=== PATIENT | male | born 1945 | race Caucasian/White ===

== ENCOUNTER → 2019-08-25 08:16 | Outpatient (BNVA) | payer MEDICARE, BC, SELFPAY | PROVIDERS: Family Provider Nurse Practitioner Family; PCP Nurse Practitioner Family; Visit Provider Nurse Practitioner Family | DX: I48.91 Unspecified atrial fibrillation (principal); M54.6 Pain in thoracic spine; R42 Dizziness and giddiness | CPT/HCPCS: 80053; 80162; 81001; 81003; 82607; 82746; 84425; 85025 ==

== ENCOUNTER → 2019-11-06 09:17 | Outpatient (BNVA) | payer MEDICARE, BC, SELFPAY | PROVIDERS: Family Provider Nurse Practitioner Family; PCP Nurse Practitioner Family; Visit Provider Nurse Practitioner Family | DX: R06.02 Shortness of breath (principal) | CPT/HCPCS: 71046 ==

== ENCOUNTER 2019-11-06 11:36 | Inpatient (IN) | payer MEDICARE, BC, SELFPAY ==
[2019-11-06] VITALS (40 sets, daily range): BP systolic 97–134; BP diastolic 52–101; PULSE 101–174; RESP 17–40; TEMP 36.7; O2SAT 88–96; BMI 28.7
--- NOTE | 2019-11-06 11:43 | XR_ITS ---
WS: [id number] XR chest 1V portable [id number] REASON FOR EXAM: cough/congestion FINDINGS: The heart and mediastinal interfaces normal. The lung lopez are well aerated no pneumonia pleural effusion pulmonary edema. No pneumothorax. The orbits and hilum are normal. No osseous abnormalities. There is elevation of the right hemidiaphragm. XR/XR chest 1V portable [id number] IMPRESSION: Eventration of the right hemidiaphragm. Negative chest
--- NOTE | 2019-11-06 11:44 | ECG_ITS ---
Measurements Intervals [place] Rate: 143 P: LA: 0 QRS: -42 QRSD: 129 T: 126 QT: 292 QTc: 451 ATRIAL FLUTTER/TACHYCARDIA WITH RAPID VENTRICULAR RESPONSE LEFT AXIS DEVIATION [QRS AXIS < -30] POSSIBLE RIGHT VENTRICULAR CONDUCTION DELAY [RSR (QR) IN V1/V2] SEPTAL MYOCARDIAL INFARCTION , PROBABLY OLD [40+ ms Q WAVE IN V1/V2] POSSIBLE LATERAL MYOCARDIAL INFARCTION , OF INDETERMINATE AGE [30 ms Q WAVE IN I/ I/aVL/V5/V6] Compared to ECG 07/09/2017 13:10:36 Left-axis deviation now present Myocardial infarct finding now present Sinus rhythm no longer present T-wave abnormality no longer present Electronically Signed On 11-06-2019 17:22:41 CDT by Cayden Ibrahim M.D. [id number]
--- NOTE | 2019-11-06 11:47 | ED_ITS ---
Entered by Isamar Jimenez, acting as scribe for Lia Billings MD, [facility] Nov 06, 2019 11:36 HPI - Chest Pain General: Chief Complaint: Chest Pain Stated Complaint: CP (Afib) Sent from [facility] Time Seen by Provider: 11/06/19 11:47 Source: patient Mode of arrival: ambulatory Limitations: no limitations History of Present Illness: HPI narrative: 74 yo Male presents to ED with complaint of atrial fibrillation and shortness of breath. Pt states that he has had afib for years but it got worse over the weekend. Pt states that he got really short of breath and had tightness in his chest. Pt states that he hasn't felt a flutter or his heart racing. He endorses dizziness and some nausea. He denies any medication changes and is not taking any [id number] medication. Denies caffeine use. MD complaint: chest discomfort Pertinent past history: other (atrial fibrillation) Onset (ago): day(s) Timing of current episode: constant and still present Prior episodes: Yes Onset: during rest Pain location: substernal Pain radiation: none Pain scale (0-10): 0 Quality: tightness Relieving factors: nothing Exacerbating factors: nothing Associated symptoms: Reports dyspnea, nausea and other (dizziness); Deny fever(s) or palpitations Treatment prior to arrival: none Review of Systems General: Reports: 10 or more systems reviewed and unremarkable except in HPI and below Const: Denies: fever Eyes: Denies: change in vision or blurry vision ENMT: Denies: throat pain, enlarged tonsils, painful swallowing, hoarseness, mouth pain or swelling of lips/tongue Card: Reports: chest pain, irregular heart rhythm and shortness of breath when lying down; Denies: palpitations, edema or swelling of feet/ankles Resp: Reports: shortness of breath; Denies: productive cough or non-productive cough GI: Reports: nausea : Denies: flank pain, painful urination, urinary frequency, urinary urgency or urinary hesitancy Musc: Reports: muscle weakness; Denies: neck pain, back pain or extremity swelling Skin/Breast: Denies: rash, itching or redness Neuro: Denies: headache, numbness in extremities or weakness in extremities Endo: Denies: excessive urination, excessive thirst or tired all the time PFSH ED PFSH: Medical History Alcoholic cardiomyopathy Atrial fibrillation Chronic anticoagulation Dyslipidemia High cholesterol History of high blood pressure Hypertension Social History Smoking and tobacco status: never smoked Alcohol intake: current Alcohol intake frequency: 0-2 Drinks per Day Physical Exam Const: COMMON NORMALS: no apparent distress, average body habitus, oriented x3, no limitations, healthy appearing, alert and well nourished HENMT: COMMON NORMALS: normocephalic, head/scalp atraumatic and moist oral mucous membranes HEAD & SCALP: normocephalic and atraumatic Eye: COMMON NORMALS: PERRL, EOMs intact bilaterally, conjunctivae normal and no scleral icterus CONJUNCTIVA: Yes conjunctivae normal PUPIL: Yes PERRL Neck/C-Spine: COMMON NORMALS: full ROM, supple, no meningeal signs, no JVD and no carotid bruits Chest: COMMONS NORMALS: inspection of chest normal and palpation of chest normal Resp: COMMON NORMALS: normal respiratory effort, no retractions, no use of accessory muscles, clear to auscultation bilaterally and percussion normal AUSCULTATION: clear to auscultation bilaterally PERCUSSION: percussion normal Cardio: COMMON NORMALS: no JVD, S1 normal heart sound, S2 normal heart sound, no gallops, no clicks, no murmurs, no rub and peripheral pulses 2+ throughout RATE: tachycardic RHYTHM: abnormal rhythm irregularly irregular HEART SOUNDS: S1 normal and S2 normal PERIPHERAL PULSES: pulses 2+ throughout GI: COMMON NORMALS: normal to inspection, nondistended, normoactive bowel sounds, soft to palpation, non-tender, no hepatosplenomegaly, no masses and no bruits PALPATION: Yes soft and Yes no hepatosplenomegaly : COMMON NORMALS: Yes no CVA tenderness BLADDER/KIDNEY EXAM: Yes no CVA tenderness Back/Pelvis: COMMON NORMALS: no CVA tenderness Extremity: COMMON NORMALS: normal to inspection, full ROM, normal capillary refill, no calf tenderness and no pedal edema Neuro: COMMON NORMALS: oriented x3 SENSORIUM/ORIENTATION: Yes alert MENINGEAL SIGNS: Yes no meningeal signs Skin: COMMON NORMALS: no rashes or lesions noted, no wounds, skin turgor normal, no jaundice, no petechiae and no mottling GENERAL SKIN EXAM: no rashes or lesions noted and turgor normal Course Consultations: Consultation #1: Dr. Chong, Reagent Tender. Increase the dose of cardizem drip and give oral metoprolol. He should be admitted to the hospitalist service and she should be consulted. Time: 14:30 Consultation #2: Dr. Hartman, hospitalist. He kindly accepted the patient to his service. Time: 14:40 Vital Signs: Vital signs: Vital Signs Temperature 98.1 F 11/06/19 11:42 Pulse Rate 107 H 11/06/19 20:00 Respiratory Rate 28 H 11/06/19 20:00 Blood Pressure 119/82 11/06/19 20:00 Pulse Oximetry 95 11/06/19 20:00 MDM - Chest Pain MDM Narrative: Medical decision making narrative: 74 year old male with a history of atrial fibrillation who presents to the ED in refractory a-fib that did not respond to IV cardizem. Evaluation in the ED was unremarkable. He is admitted for further management and evaluation. Lab Data: Labs: Lab Results 11/06/19 11/06/19 11/06/19 Range/Units 11:53 11:53 11:53 WBC 12.2 H (4.0-10.0) 10^3/ uL RBC 4.91 (4.1-5.3) 10^6/u L Hgb 15.9 (11.7-16.6) g/dL Hct 48.6 (42.0-52.0) % MCV 99.0 H (80-94) fL MCH 32.4 (28.0-34.0) pg MCHC 32.7 (30.0-36.0) g/dL RDW 12.9 (12.1-15.1) % Plt Count 219 (130-400) 10^3/c mm MPV 10.3 (7.4-10.4) fL Neut % (Auto) 70.6 % Lymph % (Auto) 15.0 % Tucker % (Auto) 9.5 % Eos % (Auto) 0.5 % Baso % (Auto) 0.2 % Neut # (Auto) 8.7 H (1.8-7.7) 10^3/u L Lymph # (Auto) 1.8 (0.8-4.8) 10^3/u L Tucker # (Auto) 1.2 H (0.2-0.9) 10^3/u L Eos # (Auto) 0.1 (0.0-0.8) 10^3/u L Baso # (Auto) 0.0 (0.0-0.1) 10^3/u L Nucleated RBC % (a uto) 0.2 % Nucleated RBCs # 0.0 /100WBC Sodium 137 (136-145) mmol/L Potassium 4.2 (3.5-5.1) mmol/L Chloride 99 (98-107) mmol/L Carbon Dioxide 25 (22-29) mmol/L Anion Gap 17.2 (5-19) BUN 23 (8-23) mg/dL Creatinine 1.3 H (0.7-1.2) mg/dL Glucose 167 H (65-115) mg/dL Calculated Osmolal ity 285 (285-295) mOsm/k g Calcium 9.8 (8.5-10.5) mg/dL Total Bilirubin 0.8 (0.15-1.2) mg/dL AST 23 (0-40) U/L ALT 41 (0-41) U/L Alkaline Phosphata se 55 (40-130) IU/L Troponin T Baselin e 40 H (0-15) ng/mL Troponin T 120 Min [place] (0-15) ng/mL Delta Troponin T (0-10) ABS# NT-Pro-B Natriuret Pep (0-125) pg/mL Total Protein 7.3 (6.6-8.7) g/dL Albumin 4.3 (3.5-5.2) g/dL Globulin 3.0 (1.3-4.6) g/dL Procalcitonin (0-0.5) ng/mL TSH (0.27-4.20) uIU/ mL Digoxin (0.6-1.2) ng/mL 11/06/19 11/06/19 11/06/19 Range/Units 11:53 13:45 13:45 WBC (4.0-10.0) 10^3/ uL RBC (4.1-5.3) 10^6/u L Hgb (11.7-16.6) g/dL Hct (42.0-52.0) % MCV (80-94) fL MCH (28.0-34.0) pg MCHC (30.0-36.0) g/dL RDW (12.1-15.1) % Plt Count (130-400) 10^3/c mm MPV (7.4-10.4) fL Neut % (Auto) % Lymph % (Auto) % Tucker % (Auto) % Eos % (Auto) % Baso % (Auto) % Neut # (Auto) (1.8-7.7) 10^3/u L Lymph # (Auto) (0.8-4.8) 10^3/u L Tucker # (Auto) (0.2-0.9) 10^3/u L Eos # (Auto) (0.0-0.8) 10^3/u L Baso # (Auto) (0.0-0.1) 10^3/u L Nucleated RBC % (a uto) % Nucleated RBCs # /100WBC Sodium (136-145) mmol/L Potassium (3.5-5.1) mmol/L Chloride (98-107) mmol/L Carbon Dioxide (22-29) mmol/L Anion Gap (5-19) BUN (8-23) mg/dL Creatinine (0.7-1.2) mg/dL Glucose (65-115) mg/dL Calculated Osmolal ity (285-295) mOsm/k g Calcium (8.5-10.5) mg/dL Total Bilirubin (0.15-1.2) mg/dL AST (0-40) U/L ALT (0-41) U/L Alkaline Phosphata se (40-130) IU/L Troponin T Baselin e (0-15) ng/mL Troponin T 120 Min [place] 32.76 H (0-15) ng/mL Delta Troponin T -7.24 L (0-10) ABS# NT-Pro-B Natriuret Pep 1691 H (0-125) pg/mL Total Protein (6.6-8.7) g/dL Albumin (3.5-5.2) g/dL Globulin (1.3-4.6) g/dL Procalcitonin (0-0.5) ng/mL TSH 1.24 (0.27-4.20) uIU/ mL Digoxin 0.3 L (0.6-1.2) ng/mL 11/06/19 Range/Units 13:45 WBC (4.0-10.0) 10^3/ uL RBC (4.1-5.3) 10^6/u L Hgb (11.7-16.6) g/dL Hct (42.0-52.0) % MCV (80-94) fL MCH (28.0-34.0) pg MCHC (30.0-36.0) g/dL RDW (12.1-15.1) % Plt Count (130-400) 10^3/c mm MPV (7.4-10.4) fL Neut % (Auto) % Lymph % (Auto) % Tucker % (Auto) % Eos % (Auto) % Baso % (Auto) % Neut # (Auto) (1.8-7.7) 10^3/u L Lymph # (Auto) (0.8-4.8) 10^3/u L Tucker # (Auto) (0.2-0.9) 10^3/u L Eos # (Auto) (0.0-0.8) 10^3/u L Baso # (Auto) (0.0-0.1) 10^3/u L Nucleated RBC % (a uto) % Nucleated RBCs # /100WBC Sodium (136-145) mmol/L Potassium (3.5-5.1) mmol/L Chloride (98-107) mmol/L Carbon Dioxide (22-29) mmol/L Anion Gap (5-19) BUN (8-23) mg/dL Creatinine (0.7-1.2) mg/dL Glucose (65-115) mg/dL Calculated Osmolal ity (285-295) mOsm/k g Calcium (8.5-10.5) mg/dL Total Bilirubin (0.15-1.2) mg/dL AST (0-40) U/L ALT (0-41) U/L Alkaline Phosphata se (40-130) IU/L Troponin T Baselin e (0-15) ng/mL Troponin T 120 Min [place] (0-15) ng/mL Delta Troponin T (0-10) ABS# NT-Pro-B Natriuret Pep (0-125) pg/mL Total Protein (6.6-8.7) g/dL Albumin (3.5-5.2) g/dL Globulin (1.3-4.6) g/dL Procalcitonin 0.04 (0-0.5) ng/mL TSH (0.27-4.20) uIU/ mL Digoxin (0.6-1.2) ng/mL Imaging Data^: CXR: Radiologist's impression: [address] [address] XRay Report Signed Patient: Sumit Higuera #: [id number] : 6Acct#:[id number] Age/Sex: 74 / MADM Date: 11/06/19 Loc: ERRoom/Bed: Attending Dr: Ordering Provider/Ordering MD: Katarina Davis Date of Service: 11/06/19 Procedure(s): XR chest 1V portable [id number] Accession Number(s): [id number] Report Number: [id number] WS: [id number] XR chest 1V portable [id number] REASON FOR EXAM: cough/congestion FINDINGS: The heart and mediastinal interfaces normal. The lung lopez are well aerated no pneumonia pleural effusion pulmonary edema. No pneumothorax. The orbits and hilum are normal. No osseous abnormalities. There is elevation of the right hemidiaphragm. XR/XR chest 1V portable [id number] IMPRESSION: Eventration of the right hemidiaphragm. Negative chest Dictated By:Nav Pike DO Signed By:Nav Pike DOSigned Date/Time:11/06/19 1224 DD/ 1223 EKG Data^: EKG 1: Attestation: I personally reviewed and interpreted this EKG as follows: EKG interpretation date: 11/06/19 EKG interpretation time: 11:50 Prior EKG tracings: not available for review Interpretation: A-fib with RVR. Heart rate 143 bpm. Right ventricular conduction delay. Q waves in 1 and aVL. EKG 2: Attestation: I personally reviewed and interpreted this EKG as follows: EKG interpretation date: 11/06/19 EKG interpretation time: 13:27 Prior EKG tracings: available for review Interpretation: Unchanged from earlier today. EKG 3: Attestation: I personally reviewed and interpreted this EKG as follows: EKG interpretation date: 11/06/19 EKG interpretation time: 17:55 Prior EKG tracings: available for review Interpretation: Unchanged from the first 2 from today other than heart rate is now 114 which is an improvement. Discharge Plan Discharge Admit Provider: Maximiliano Hartman Condition: Stable Interventions: ED Discharge Assessment Last Done: 11/06/19 17:51 Discharge Date/Time: 11/06/19 18:03 Coding Level of Care Code ED Business Continuity Director for Chg Fwd Exam Comprehensive The documentation recorded by the Barbara hargrove Carmen, accurately reflects the service I personally performed and the decisions made by Manuelito barnhart Adegoke I, MD, [facility] Nov 06, 2019 11:36
[2019-11-06 11:59] LABS: Basophils % 0.2 %; Eosinophils # 0.1 10^3/uL (0.0-0.8); Eosinophils % 0.5 %; Hematocrit 48.6 % (42.0-52.0); Hemoglobin 15.9 g/dL (11.7-16.6); Lymphocytes # 1.8 10^3/uL (0.8-4.8); Mean Corpuscular HGB Conc 32.7 g/dL (30.0-36.0); Mean Corpuscular Hemoglobin 32.4 pg (28.0-34.0); Mean Platelet Volume 10.3 fL (7.4-10.4); Monocytes # 1.2 10^3/uL (0.2-0.9); Monocytes % 9.5 %; Neutrophils # 8.7 10^3/uL (1.8-7.7); Neutrophils % 70.6 %; Nucleated Red Blood Cells % 0.2 %; Platelet Count 219 10^3/cmm (130-400); Red Blood Count 4.91 10^6/uL (4.1-5.3); Red Cell Distribution Width 12.9 % (12.1-15.1); White Blood Count 12.2 10^3/uL (4.0-10.0)
[2019-11-06 12:17] LABS: Alanine Aminotransferase 41 U/L (0-41); Albumin Level 4.3 g/dL (3.5-5.2); Alkaline Phosphatase 55 IU/L (40-130); Anion Gap 17.2 (5-19); Aspartate Amino Transferase 23 U/L (0-40); Blood Urea Nitrogen 23 mg/dL (8-23); Calcium 9.8 mg/dL (8.5-10.5); Carbon Dioxide 25 mmol/L (22-29); Chloride 99 mmol/L (98-107); Glucose 167 mg/dL (65-115); Osmolality Calculated 285 mOsm/kg (285-295); Potassium 4.2 mmol/L (3.5-5.1); Sodium 137 mmol/L (136-145); Total Bilirubin 0.8 mg/dL (0.15-1.2); Total Protein 7.3 g/dL (6.6-8.7)
[2019-11-06 12:37] LABS: Troponin(5th) Baseline 40 ng/mL (0-15)
[2019-11-06 12:57] LABS: NT Pro B Type Natriuretic Pept 1691 pg/mL (0-125); Thyroid Stimulating Hormone 1.24 uIU/mL (0.27-4.20)
--- NOTE | 2019-11-06 13:44 | ECG_ITS ---
Measurements Intervals [place] Rate: 141 P: AL: 0 QRS: -47 QRSD: 128 T: 99 QT: 313 QTc: 481 ATRIAL FIBRILLATION WITH RAPID VENTRICULAR RESPONSE POSSIBLE RIGHT VENTRICULAR CONDUCTION DELAY [RSR (QR) IN V1/V2] LEFT ANTERIOR FASCICULAR BLOCK [QRS AXIS <= -45, QR IN I, RS IN II] SEPTAL MYOCARDIAL INFARCTION , PROBABLY OLD [40+ ms Q WAVE IN V1/V2] POSSIBLE LATERAL MYOCARDIAL INFARCTION , OF INDETERMINATE AGE [30 ms Q WAVE IN I/ I/aVL/V5/V6] Compared to ECG 07/09/2017 13:10:36 Left anterior fascicular block now present Myocardial infarct finding now present Sinus rhythm no longer present T-wave abnormality no longer present Electronically Signed On 11-06-2019 17:25:20 CDT by Cayden Ibrahim M.D. [id number] lilly
[2019-11-06 14:10] LABS: Troponin 5 2HR 32.76 ng/mL (0-15); Troponin 5 2HR Delta -7.24 ABS# (0-10)
[2019-11-06] MEDS: metoprolol tartrate 25 mg Tablet PO ×2 (14:43→18:34)
--- NOTE | 2019-11-06 16:04 | P.HP_ITS ---
Providers/Chief Complaint Primary Care Provider: CHADD Jain Chief Complaint: CP History of Present Illness Sumit Higuera is a 74 year old male with past medical history of alcoholic cardiomyopathy, cardiac catheterization in 2012, hypertension, hyperlipidemia, atrial fibrillation with chronic anticoagulation with Eliquis, last known EF of 50% with diastolic dysfunction of grade 2 and echocardiogram from 2018 presented to the ER today because he has been feeling fluttering in his chest for last 2 days. Patient states he has been having worsening shortness of breath on exertion for more than 6 months along with symptoms of orthopnea and PND for last 2 to 3 weeks which is gotten worse over the weekend since he started having more fluttering in his chest. Today he was started having some chest pressure- like symptoms so he decided to come to the ER. In the ER he was found to have atrial fibrillation with rate going up to 150s so he was given a bolus of metoprolol followed by Cardizem drip of 15. On my examination patient was lying comfortably in bed with his heart rate ranging from 120?135 while being on Cardizem 15. At present he states he is chest pain-free and is not having much shortness of breath. He denies of having any fevers, dysuria, flulike symptoms, recent sick contacts, recent travels, dizziness, loss of consciousness, weakness in any of his arms, bleeding from any place. Review of Systems Const: Denies: fever, chills, body aches, change in appetite, malaise, night sweats, diaphoresis, change in sleep pattern, daytime sleepiness or snoring Eyes: Denies: change in vision, blurry vision, photophobia, eye discomfort or eye discharge ENMT: Denies: throat pain, enlarged tonsils, hoarseness, mouth pain, oral sores/lesions, dry mouth, tinnitus, nasal congestion or post nasal drip Card: Reports: chest pain, palpitations, irregular heart rhythm, shortness of breath on exertion and shortness of breath when lying down; Denies: edema, swelling of feet/ankles, lightheadedness, syncope, pre-syncope, leg pain with exertion or bluish discoloration of hands/feet Resp: Denies: shortness of breath, productive cough, non-productive cough, wheezing, stridor, pain on inspiration, change in phlegm color, coughing up blood or chest congestion GI: Denies: abdominal pain, nausea, vomiting, vomiting blood, coffee grounds in vomit, difficulty swallowing, heartburn/indigestion, diarrhea, constipation, bloating, cramping, change in bowel habits, painful bowel movements, blood in stool or black tarry stool : Denies: flank pain, difficulty urinating, painful urination, urinary frequency, urinary urgency, urinary hesitancy, urinary dribbling, difficulty starting urination, change in urine stream, nighttime urination or blood in urine Musc: Denies: neck pain, back pain, extremity pain, joint pain, joint swelling, redness, joint stiffness or limited range of motion Neuro: Denies: headache, numbness in extremities, weakness in extremities, changes in sensation, lack of coordination, difficulty walking, frequent falls, dizziness, vertigo, confusion, slurred speech, difficulty communicating thoughts or seizure-like activity Psych: Denies: anxiety, depression, mood swings, panic attacks, hopelessness or irritability Endo: Denies: excessive urination, excessive thirst, tired all the time, cold intolerance, excessive sweating, flushing or heat intolerance Luis/Lymph: Denies: easy bruising or easy bleeding All/Imm: Denies: tongue swelling, facial swelling or acute wheezing Medications/Allergies Home Medications Medication Instructions Recorded Confirmed Last Taken Type atorvastatin 40 mg PO BEDTIME 11/06/19 11/06/19 11/05/19 History Allergies Allergy/AdvReac Type Severity Reaction Status Date / Time No Known Allergies Allergy Verified 11/06/19 08:42 PFSH Acute PFSH: Medical History Atrial fibrillation High cholesterol History of high blood pressure Social History Smoking and tobacco status: never smoked Alcohol intake: current Alcohol intake frequency: 0-2 Drinks per Day Vitals/I&O/Wt Last Vital Signs Temp 98.1 F 11/06/19 11:42 Pulse 174 H 11/06/19 11:42 Resp 18 11/06/19 11:42 BP 134/101 11/06/19 11:42 Pulse Ox 96 11/06/19 11:42 11/06/19 11/06/19 11/06/19 06:59 14:59 22:59 Intake Total 24.134 / 24.134 Balance 24.134 / 24.134 Weight last 48 hrs Weight 90.718 kg Physical Exam Narrative: EXAM NARRATIVE: General: No acute distress, AO x3 HEENT: PERRLA, pupils bilaterally equal and reactive Chest: Normal vesicular breath sounds, bilateral fine crackles present, equal good air entry bilaterally CVS: S1-S2 irregularly irregular, tachycardia, no gallops, no rubs Abdomen: Soft, nontender, no organomegaly, bowel sounds present Neuro: No focal deficits, no facial deformity, AO x3, power 5/5 in all limbs Data : 11/06/19 11:53 11/06/19 11:53 A&P Assessment and plan (1) Atrial fibrillation: Status: Acute Code(s): I48.91 - Unspecified atrial fibrillation (2) Alcoholic cardiomyopathy: Status: Acute Code(s): I42.6 - Alcoholic cardiomyopathy (3) Hypertension: Status: Acute Code(s): I10 - Essential (primary) hypertension (4) Dyslipidemia: Status: Acute Code(s): E78.5 - Hyperlipidemia, unspecified (5) Chronic anticoagulation: Status: Acute Code(s): Z79.01 - senior care (current) use of anticoagulants Additional A&P Information Atrial fibrillation with RVR: At home patient is on amiodarone 200 mg daily, digoxin, metoprolol which he states he has been taking regularly. In the ER right now he is on Cardizem 15. Check digoxin levels. Depending on digoxin levels can plan to give a bolus of amiodarone versus digoxin load if dig levels are inappropriate below. Check TSH. Continue with Eliquis at home dose. Cardiomyopathy: Most likely nonischemic: Last known EF is 50% with grade 2 diastolic dysfunction and echo from 2018 which had improved from EF of 20% since 2017. proBNP elevated to more than 1300. Patient takes panel at 25 mg at home. Will continue same for now. Will give additional Lasix IV 20 mg stat. Daily weights. Strict input output charting. Fall precaution. Continue with aspirin, statin. Full code. DVT prophylaxis: Eliquis Cardiac diet. Admit to cardiac stepdown unit because of atrial fibrillation with rapid ventricular response. Attestations Medical Necessity Statement*: More than 2 midnights for atrial fibrillation with RVR Time Spent in Patient Care: Greater than 35 minutes Coding Level of Care Code Acute Musical Instrument Maker Or Repairer for Chg Fwd Diagnoses Atrial fibrillation I48.91 Alcoholic cardiomyopathy I42.6 Hypertension I10 Dyslipidemia E78.5 Chronic anticoagulation Z79.01
[2019-11-06 16:31] LABS: Digoxin 0.3 ng/mL (0.6-1.2)
[2019-11-06] MEDS: FUROsemide 10 mg/mL SDV 2mL 20 MG IVP (16:48)
[2019-11-06 17:04] LABS: Procalcitonin 0.04 ng/mL (0-0.5)
--- NOTE | 2019-11-06 17:44 | ECG_ITS ---
Measurements Intervals [place] Rate: 114 P: LA: 0 QRS: -47 QRSD: 131 T: 101 QT: 337 QTc: 465 ATRIAL FIBRILLATION WITH RAPID VENTRICULAR RESPONSE INTRAVENTRICULAR CONDUCTION DELAY [130+ ms QRS DURATION] SEPTAL MYOCARDIAL INFARCTION , PROBABLY OLD [40+ ms Q WAVE IN V1/V2] LEFT ANTERIOR FASCICULAR BLOCK Compared to ECG 11/06/2019 13:27:42 Intraventricular conduction delay now present Myocardial infarct finding still present Electronically Signed On 11-07-2019 13:13:37 CDT by Alicia Chong M.D. [id number] [email or web address]
--- NOTE | 2019-11-06 17:55 | P.CONIM_ITS ---
Providers/Reason For Consult Consulting Physican/Specialty*: Dr. Chong, cardiology Reason for Consult*: Atrial fibrillation with rapid ventricular response. Attending Physician: Maximiliano Hartman MD Primary Care Provider: CHADD Jain History of Present Illness History of Present Illness Sumit Higuera is a 74 year old male with past medical history of nonischemic cardiomyopathy (history of alcoholic cardiomyopathy with ejection fraction improved from 30% to 50% on last echo in 2018), hypertension, hyperlipidemia, paroxysmal atrial fibrillation x 10 years (no h/o CV or ablation) on amiodarone, Eliquis, digoxin and metoprolol. He presented to the ER with complaints of chest pain, tiredness and heart fluttering for last few days. He has not been feeling well for last 2-3 months. He went to PCP's office and was found to have atrial fib with RVR with HR in 150's. Arrival to the ER he was found in atrial fibrillation with rapid ventricular response at 141 bpm. Left anterior fascicular block. 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 He received Cardizem bolus 25 mg IV followed by Cardizem drip. He also complains of SOB both on laying down and with exertion. He usually follows up with Dr. Ibrahim and last saw him in November 2018. Creatinine slightly increased to 1.3. Dig level of 0.3. TSH normal. NT Pro BNP of 1641 and Troponin T baseline of 40 and at 2 hour of 32. Review of Systems Const: Reports: fatigue; Denies: fever, chills, change in appetite, change in weight or malaise Eyes: Denies: change in vision or eye discharge ENMT: Denies: throat pain, swelling of lips/tongue, oral sores/lesions, bleeding gums, nasal congestion, nose bleeds or post nasal drip Card: Reports: chest pain, palpitations, shortness of breath on exertion and shortness of breath when lying down; Denies: irregular heart rhythm, edema, lightheadedness, syncope or leg pain with exertion Resp: Reports: shortness of breath; Denies: productive cough, wheezing or coughing up blood GI: Denies: abdominal pain, nausea, vomiting, vomiting blood, heartburn/indigestion, diarrhea, constipation, change in bowel habits, blood in stool or black tarry stool : Denies: painful urination, decreased urine ouput, blood in urine, scrotal swelling or erectile dysfunction Musc: Denies: back pain, extremity swelling, joint pain or muscle weakness Skin/Breast: Denies: rash, redness, new lesion or change in hair Neuro: Denies: numbness in extremities, weakness in extremities, lack of coordination, difficulty walking, dizziness, vertigo or confusion Psych: Denies: anxiety, depression, irritability, suicidal ideation or homicidal ideation Endo: Denies: tired all the time, cold intolerance or heat intolerance Luis/Lymph: Denies: easy bruising, easy bleeding, petechiae or purpura All/Imm: Denies: throat swelling, tongue swelling or acute wheezing Meds/Allergies Home Medications and Allergies Home Medications Medication Instructions Recorded Confirmed Type amiodarone 200 mg tablet 200 mg PO DAILY tab 08/28/19 11/06/19 History aspirin 81 mg tablet,delayed 81 mg PO DAILY tab 08/28/19 11/06/19 History release cholecalciferol (vitamin D3) 1,250 50,000 unit PO .weekly #4 cap 09/18/19 11/06/19 Rx mcg (50,000 unit) capsule digoxin 125 mcg (0.125 mg) tablet 125 mcg PO DAILY #30 tab 09/18/19 11/06/19 Rx metoprolol tartrate 25 mg tablet 25 mg PO BID #60 tab 09/18/19 11/06/19 Rx spironolactone 25 mg tablet 25 mg PO DAILY 90 Days #90 tab 09/18/19 11/06/19 Rx apixaban 5 mg tablet 5 mg PO BID #60 tab 10/02/19 11/06/19 Rx atorvastatin 40 mg PO BEDTIME 11/06/19 11/06/19 History Allergies Allergy/AdvReac Type Severity Reaction Status Date / Time No Known Allergies Allergy Verified 11/06/19 08:42 Current Medications Current Medications Generic Name Dose Route Start Last Admin Trade Name Freq PRN Reason Stop Dose Admin Diltiazem HCl 125 mg/ Sodium 125 mls @ 0 mls/hr 11/06/19 12:15 11/06/19 14:53 Chloride IV 15 mg/hr .Q0M NURYS 15 mls/hr Titration Protocol Per Protocol PFSH Acute PFSH: Medical History Alcoholic cardiomyopathy Atrial fibrillation Chronic anticoagulation Dyslipidemia High cholesterol History of high blood pressure Hypertension Social History Smoking and tobacco status: never smoked Alcohol intake: current Alcohol intake frequency: 0-2 Drinks per Day Vitals/I&O/Wt Last Vital Signs Temp 98.1 F 11/06/19 11:42 Pulse 127 H 11/06/19 17:45 Resp 22 H 11/06/19 17:45 BP 126/68 11/06/19 17:45 Pulse Ox 94 11/06/19 17:45 11/06/19 11/06/19 11/06/19 06:59 14:59 22:59 Intake Total 24.134 / 24.134 Balance 24.134 / 24.134 Weight last 48 hrs Weight 200 lb Physical Exam Const: COMMON NORMALS: no apparent distress, oriented x3 and alert GENERAL APPEARANCE: cooperative, comfortable, well kempt and well hydrated HENMT: COMMON NORMALS: hearing grossly normal bilaterally, external ears normal and moist oral mucous membranes FACE & SINUS: normal facial exam EXTERNAL EAR: Yes external ears normal Eye: COMMON NORMALS: EOMs intact bilaterally and no scleral icterus GENERAL EYE: normal appearance of both eyes Neck/C-Spine: COMMON NORMALS: no lymphadenopathy, supple and no JVD CAROTIDS: Yes normal carotid upstroke Resp: COMMON NORMALS: clear to auscultation bilaterally EFFORT & INSPECTION: Yes able to speak in complete sentences, No respiratory distress, No labored and No actively coughing AUSCULTATION: clear to auscultation bilaterally, crackles (bilateral basal fine crackles+), no rales, no rhonchi and no wheezes Cardio: COMMON NORMALS: no JVD and peripheral pulses 2+ throughout PALPATION: normal PMI RATE: tachycardic RHYTHM: abnormal rhythm irregularly irregular HEART SOUNDS: no click, no gallops and no murmurs BRUITS: no carotid bruits PERIPHERAL PULSES: pulses 2+ throughout, radial pulses present, posterior tibial pulses present and dorsalis pedis pulses present Extremity: GENERAL: No clubbing, No cyanosis, No edema and No pallor Neuro: COMMON NORMALS: oriented x3, CN's II-XII intact bilaterally and no focal motor deficits SENSORIUM/ORIENTATION: Yes alert Psych: COMMON NORMALS: thought process normal and speech normal APPEARANCE: Yes well kempt SPEECH: Yes normal speech THOUGHT PROCESS: normal thought process THOUGHT CONTENT: Yes normal thought content Data Labs: Other Labs: Laboratory Tests 11/06/19 11/06/19 11/06/19 11:53 11:53 11:53 WBC 12.2 H Hgb 15.9 Plt Count 219 Potassium 4.2 BUN 23 Creatinine 1.3 H AST 23 ALT 41 Alkaline Phosphata se 55 NT-Pro-B Natriuret Pep 1691 H TSH 1.24 Digoxin 11/06/19 13:45 WBC Hgb Plt Count Potassium BUN Creatinine AST ALT Alkaline Phosphata se NT-Pro-B Natriuret Pep TSH Digoxin 0.3 L Imaging^: Echo: I personally reviewed and interpreted this imaging study as follows: My impression: (11/2017) CONCLUSIONS #1. Normal left ventricular cavity size. Mild concentric left ventricular hypertrophy. Low normal left ventricular systolic function. Left ventricular ejection fraction is estimated at 50 %. Grade II/IV diastolic dysfunction. #2.Normal right ventricular size and systolic function. #3.Mildly-moderately increased left atrial size. #4. When compared to prior echocardiogram dated 07/09/2017, left ventricle ejection fraction has improved from 30% to 50%. Coronary Angigogram (03/2012): Radiologist's impression: Angiographic Findings Cardiac Arteries and Lesion Findings LMCA: Normal. LAD: Normal. LCx: Normal. RCA: Diffuse irregularity. A&P Assessment and plan (1) Atrial fibrillation: Probably has been persistent for last few weeks. continue cardizem drip. -start metoprolol tar 25 BID with plan to uptitrate. He got loaded with Didoxin. -May need to be cardioverted if continues to be in A. fib with RVR. -recieved lasix 20 mg IV x 1 Status: Acute Qualifiers: Atrial fibrillation type: paroxysmal Qualified Code(s): I48.0 - Paroxysmal atrial fibrillation Code(s): I48.91 - Unspecified atrial fibrillation (2) Alcoholic cardiomyopathy: Mildly decompensated in setting of A. fib with RVR Status: Acute Code(s): I42.6 - Alcoholic cardiomyopathy (3) Hypertension: Status: Acute Qualifiers: Hypertension type: essential hypertension Qualified Code(s): I10 - Essential (primary) hypertension Code(s): I10 - Essential (primary) hypertension (4) Dyslipidemia: Status: Acute Code(s): E78.5 - Hyperlipidemia, unspecified Additional A&P Information Thank you for allowing me to participate in patient's care. Please feel free to call with questions or concerns. Coding Level of Care Code Acute Electrical Engineering Technologist for [facility] Diagnoses Atrial fibrillation I48.0 Atrial fibrillation type: paroxysmal Alcoholic cardiomyopathy I42.6 Hypertension I10 Hypertension type: essential hypertension Dyslipidemia E78.5
[2019-11-06] MEDS: apixaban 5 mg Tablet PO (18:34)
[2019-11-06] MEDS: digoxin 250 mcg/ml INJ 2 mL 500 MCG IVP (18:34)
[2019-11-06 18:46] LABS: Troponin 5 6HR 32.41 ng/mL (0-15)
[2019-11-06 18:57] LABS: Troponin 5 6HR Delta -7.59 ng/L (0-12)
[2019-11-06] MEDS: atorvastatin 40 mg Tablet PO (22:22)
[2019-11-06] MEDS: sennosides 8.6 mg Tablet 17.2 MG PO (22:23)
[2019-11-06] MEDS: ALPRAZolam 0.25 mg Tablet PO (22:23)
[2019-11-07] VITALS (8 sets, daily range): BP systolic 101–127; BP diastolic 63–87; PULSE 91–126; RESP 20–29; TEMP 36.3–36.9; O2SAT 93–98; BMI 28.5
[2019-11-07] MEDS: digoxin 250 mcg/ml INJ 2 mL IVP (00:29)
--- NOTE | 2019-11-07 02:46 | PC.NURSE ---
patient has been 107 to 150 since change of shift and is on cardizem drip at 15 for the last 8 hours. he has also had a couple doses of digoxin today. Called Dr. Kim to see if she wanted to try something else and she asked if he was symptomatic and i assured her he was not that dueing the evening he was talking laughing along with me and his room mate and is sleeping now with no problems. She said to watch him and if hemodynamically stable to just leave him as it takes a while for digoxin to get to a therapeutic level and he has another dose in the morning.
[2019-11-07 04:01] LABS: Basophils # 0.1 10^3/uL (0.0-0.1); Basophils % 0.5 %; Eosinophils # 0.2 10^3/uL (0.0-0.8); Eosinophils % 1.4 %; Hematocrit 44.4 % (42.0-52.0); Hemoglobin 14.7 g/dL (11.7-16.6); Lymphocytes # 1.7 10^3/uL (0.8-4.8); Lymphocytes % 16.1 %; Mean Corpuscular HGB Conc 33.1 g/dL (30.0-36.0); Mean Corpuscular Hemoglobin 32.5 pg (28.0-34.0); Mean Platelet Volume 10.6 fL (7.4-10.4); Monocytes % 9.5 %; Neutrophils % 66.6 %; Nucleated Red Blood Cells % 0 %; Platelet Count 204 10^3/cmm (130-400); Red Blood Count 4.53 10^6/uL (4.1-5.3); Red Cell Distribution Width 12.8 % (12.1-15.1); White Blood Count 10.5 10^3/uL (4.0-10.0)
[2019-11-07 04:16] LABS: Blood Urea Nitrogen 18 mg/dL (8-23); Calcium 9.4 mg/dL (8.5-10.5); Chloride 104 mmol/L (98-107); Creatinine Clr Calc Pharmacy 74.5256; Glucose 107 mg/dL (65-115); Osmolality Calculated 285 mOsm/kg (285-295); Potassium 4.3 mmol/L (3.5-5.1); Sodium 139 mmol/L (136-145)
[2019-11-07 05:17] LABS: Slide Review Slide Review Perform
[2019-11-07 05:44] LABS: Anion Gap 17.3 (5-19); Carbon Dioxide 22 mmol/L (22-29)
[2019-11-07] MEDS: spironolactone 25 mg Tablet PO (08:06)
[2019-11-07] MEDS: apixaban 5 mg Tablet PO ×2 (08:06→17:44)
[2019-11-07] MEDS: digoxin 125 mcg Tablet PO (08:07)
[2019-11-07] MEDS: amiodarone 200 mg Tablet PO (08:07)
[2019-11-07] MEDS: metoprolol tartrate 25 mg Tablet PO (08:07)
[2019-11-07] MEDS: aspirin 81 mg EC Tablet PO (08:07)
--- NOTE | 2019-11-07 09:00 | PM.PN ---
Subjective Subjective: Interval history: No acute events overnight. Patient got overall 750 mcg of digoxin as her dig levels were on the lower side. He continues to run ranging from 100-130 overnight in atrial fibrillation. As per his patient is a binge alcohol drinker and has been doing binge drinking for last couple of weeks which could also be precipitating to his atrial fibrillation at present. He denies of having any nausea, vomiting, difficulty in breathing, chest pain or pressure anymore. Vitals/I&O/Wt Last Vital Signs Temp 98.5 F 11/07/19 04:00 Pulse 126 H 11/07/19 08:07 Resp 20 H 11/07/19 07:38 BP 109/77 11/07/19 07:38 Pulse Ox 96 11/07/19 07:38 11/06/19 11/07/19 11/07/19 22:59 06:59 14:59 Intake Total 100.866 / 125.000 471.75 / 471.75 Output Total 2100 / 2100 1350 / 3450 700 / 700 Balance -1999.134 / -1975.000 -1350 / -3325.000 -228.25 / -228.25 Weight last 48 hrs Weight 90.265 kg Weight 90.718 kg Physical Exam Narrative: EXAM NARRATIVE: General: No acute distress, AO x3 HEENT: PERRLA, pupils bilaterally equal and reactive Chest: Normal vesicular breath sounds, bilateral fine crackles present, equal good air entry bilaterally CVS: S1-S2 irregularly irregular, tachycardia, no gallops, no rubs Abdomen: Soft, nontender, no organomegaly, bowel sounds present Neuro: No focal deficits, no facial deformity, AO x3, power 5/5 in all limbs Data : 11/07/19 03:05 11/07/19 03:05 A&P Assessment and plan (1) Atrial fibrillation: Status: Acute Qualifiers: Atrial fibrillation type: paroxysmal Qualified Code(s): I48.0 - Paroxysmal atrial fibrillation Code(s): I48.91 - Unspecified atrial fibrillation (2) Alcoholic cardiomyopathy: Status: Acute Code(s): I42.6 - Alcoholic cardiomyopathy (3) Hypertension: Status: Acute Qualifiers: Hypertension type: essential hypertension Qualified Code(s): I10 - Essential (primary) hypertension Code(s): I10 - Essential (primary) hypertension (4) Dyslipidemia: Status: Acute Code(s): E78.5 - Hyperlipidemia, unspecified (5) Chronic anticoagulation: Status: Acute Code(s): Z79.01 - remote computer terminal operator (current) use of anticoagulants Additional A&P Information Atrial fibrillation with RVR: At home patient is on amiodarone 200 mg daily, digoxin, metoprolol which he states he has been taking regularly. In the ER right now he is on Cardizem 15. Dig levels are on the lower side so he was given 750 mcg of digoxin in divided doses overnight. Continue with amiodarone 200 mg daily, digoxin to 50 mcg daily, metoprolol 25 twice daily. As he still running in rapid ventricular response we will give him amiodarone 150 IV bolus. We will plan to transition him over to Cardizem oral gradually during the day. We will try to take it slow to avoid bradycardia once all the medications kick in. If medications do not help we will have to plan for a possible BINU cardioversion. Continue Eliquis at home dose. TSH levels appreciated. Cardiomyopathy: Most likely nonischemic: Last known EF is 50% with grade 2 diastolic dysfunction and echo from 2018 which had improved from EF of 20% since 2017. Good urine output after Lasix yesterday. Patient is overall 3.5 L negative. Continue home dose spironolactone. We will hold off on any IV Lasix for now. Daily weights. Strict input output charting. Fall precaution. Continue with aspirin, statin. Full code. DVT prophylaxis: Eliquis Cardiac diet. Attestations Medical Necessity Statement*: Atrial fibrillation with RVR Time Spent in Patient Care: Greater than 35 minutes Coding Level of Care Code Acute Student Services Advisor for [facility] Diagnoses Atrial fibrillation I48.0 Atrial fibrillation type: paroxysmal Alcoholic cardiomyopathy I42.6 Hypertension I10 Hypertension type: essential hypertension Dyslipidemia E78.5 Chronic anticoagulation Z79.01
--- NOTE | 2019-11-07 11:13 | PC.CHAP ---
Pastoral Care Encounter/Spiritual Assessment Type of Contact [] Declined byproduct engineer visit [] Patient/Family/Request visit [] Outpatient visit [] Follow-up visit [] Physician referral [] Code/Alert [x] Routine visit [] Staff referral [] Actively dying [] Patient sleeping [] Family support [] [] Out of room [] Palliative care [] [] Receiving care in room [] Pre-surgical visit [] Trauma [] Long length of stay [] ICU visit [] Other: Relational/Emotional Strength [x] Patient feels connected with others/family/visitors/staff [] Distress [] Loneliness/isolation [] Abandonment Spirituality of Patient [x] Person of Cathy [] Attends Muslim of their Cathy [x] Believes in Prayer [x] Reads Bible or Latter Day materials [] There are Spiritual issues to be addressed Skull Splitter Interventions [x] Prayer [x] Active listening [x] Non-anxious presence [x] Spiritual/emotional support [] Crisis/trauma care [x] Spiritual counseling [] Bereavement support [] Provided bereavement packet [] Provided Bible/devotional materials [] Provided toy/stuffed animal, coloring book to patient or family member [] Provided Communion [] Anointing/[place] [] Salvation [] Completed spiritual assessment [] Other: Impact on Illness or Injury [] Angry [] Fearful [] Anxious [] Often cries [] Exhaustion [] Unable to work [] Unable to attend caodaism [] Unable to walk/stand [] Unable to read [] Unable to drive [] Unable to eat/drink [] Unable to sleep [] Unable to be with family [] Patient intubated [x] Other: n/a Summary Time spent with patient 10 minutes
--- NOTE | 2019-11-07 12:16 | PC.NURSE ---
notified Dr Hartman of patient HR and decrease of cardizem drip instructions given to one time dose of lasixs 20 mg PO and cardizem 30 mg po once now orders placed by this nurse
[2019-11-07] MEDS: dilTIAZem 30 mg Tablet PO (12:36)
[2019-11-07] MEDS: FUROsemide 20 mg Tablet PO (12:36)
--- NOTE | 2019-11-07 13:20 | PM.PN ---
Subjective Subjective: Interval history: Patient denies any complaints. He still continues to be in atrial fib with RVR with HR ranging from 100-130's. He recieved lasix 2 mg PO x 1, amiodarone 150 mg IV and was loaded with Digoxin overnight. Medications: Reviewed: Yes Medication Review Details: Current Medications Acetaminophen (Tylenol) 650 mg PO Q6H PRN PRN Reason: Mild/Mod Pain Or Temp >/= 101 Amiodarone HCl (Cordarone) 200 mg PO DAILY [facility] Last Admin: 11/07/19 08:07 Dose: 200 mg Documented by: Apixaban (Eliquis) 5 mg PO BID [facility] Last Admin: 11/07/19 08:06 Dose: 5 mg Documented by: Aspirin (Aspirin Ec) 81 mg PO DAILY [facility] Last Admin: 11/07/19 08:07 Dose: 81 mg Documented by: Atorvastatin Calcium (Lipitor) 40 mg PO BEDTIME [facility] Last Admin: 11/06/19 22:22 Dose: 40 mg Documented by: Bisacodyl (Dulcolax) 10 mg PO DAILY PRN PRN Reason: CONSTIPATION Digoxin (Lanoxin) 125 mcg PO DAILY [facility] Last Admin: 11/07/19 08:07 Dose: 125 mcg Documented by: Diltiazem HCl (Cardizem) 30 mg PO ONCE [facility] Last Admin: 11/07/19 12:36 Dose: 30 mg Documented by: Diltiazem HCl 125 mg/ Sodium (Chloride) 125 mls @ 0 mls/hr IV .Q0M [facility]; Protocol Last Titration: 11/07/19 12:07 Dose: 5 mg/hr, 5 mls/hr Documented by: Lactulose (Constulose) 10 gm PO DAILY PRN PRN Reason: CONSTIPA Metoprolol Tartrate (Lopressor) 50 mg PO BID [facility] Non-Formulary Medication (Cholecalciferol (Vitamin D3)) 50,000 unit PO .weekly [facility] Ondansetron HCl (Zofran) 4 mg IVP Q8H PRN PRN Reason: vomiting, or N/V if npo Senna (Senna Lax) 17.2 mg PO BEDTIME [facility] Last Admin: 11/06/19 22:23 Dose: 17.2 mg Documented by: Spironolactone (Aldactone) 25 mg PO DAILY [facility] Last Admin: 11/07/19 08:06 Dose: 25 mg Documented by: Vitals/I&O/Wt Last Vital Signs Temp 98.5 F 11/07/19 04:00 Pulse 91 11/07/19 11:10 Resp 22 H 11/07/19 11:10 BP 127/68 11/07/19 11:10 Pulse Ox 93 11/07/19 11:10 11/06/19 11/07/19 11/07/19 22:59 06:59 14:59 Intake Total 100.866 / 125.000 540.667 / 540.667 Output Total 2099 / 2099 1350 / 3450 700 / 700 Balance -1999.134 / -1975.000 -1350 / -3325.000 -159.333 / -159.333 Weight last 48 hrs Weight 199 lb Weight 200 lb Physical Exam Const: COMMON NORMALS: no apparent distress, oriented x3 and alert GENERAL APPEARANCE: cooperative, comfortable, well kempt and well hydrated HENMT: COMMON NORMALS: hearing grossly normal bilaterally, external ears normal and moist oral mucous membranes FACE & SINUS: normal facial exam EXTERNAL EAR: Yes external ears normal Eye: COMMON NORMALS: EOMs intact bilaterally and no scleral icterus GENERAL EYE: normal appearance of both eyes Neck/C-Spine: COMMON NORMALS: no lymphadenopathy, supple and no JVD CAROTIDS: Yes normal carotid upstroke Resp: EFFORT & INSPECTION: Yes able to speak in complete sentences, No respiratory distress, No labored and No actively coughing AUSCULTATION: crackles (bilateral basal fine crackles+), no rales, no rhonchi and no wheezes Cardio: COMMON NORMALS: no JVD and peripheral pulses 2+ throughout PALPATION: normal PMI RATE: tachycardic RHYTHM: abnormal rhythm HEART SOUNDS: no click, no gallops and no murmurs BRUITS: no carotid bruits PERIPHERAL PULSES: pulses 2+ throughout, radial pulses present, posterior tibial pulses present and dorsalis pedis pulses present Extremity: GENERAL: No clubbing, No cyanosis, No edema and No pallor Neuro: COMMON NORMALS: oriented x3, CN's II-XII intact bilaterally and no focal motor deficits SENSORIUM/ORIENTATION: Yes alert Psych: COMMON NORMALS: thought process normal and speech normal APPEARANCE: Yes well kempt SPEECH: Yes normal speech THOUGHT PROCESS: normal thought process THOUGHT CONTENT: Yes normal thought content Data : 11/07/19 03:05 11/07/19 03:05 A&P Assessment and plan (1) Atrial fibrillation: Probably has been persistent for last few weeks. continue cardizem drip for now. Plan to taper off cardizem gtt. -Increase metoprolol tartrate to 50 BID with plan to uptitrate. He got loaded with Digoxin. -May need to be cardioverted if continues to be in A. fib with RVR. Plan for BINU/CV in am Status: Acute Qualifiers: Atrial fibrillation type: paroxysmal Qualified Code(s): I48.0 - Paroxysmal atrial fibrillation Code(s): I48.91 - Unspecified atrial fibrillation (2) Alcoholic cardiomyopathy: Mildly decompensated in setting of A. fib with RVR -received lasix 20 mg IV x 1 yesterday with good UO. Status: Acute Code(s): I42.6 - Alcoholic cardiomyopathy (3) Hypertension: BP on lower side. continue to closely monitor blood pressure. Status: Acute Qualifiers: Hypertension type: essential hypertension Qualified Code(s): I10 - Essential (primary) hypertension Code(s): I10 - Essential (primary) hypertension (4) Dyslipidemia: Status: Acute Code(s): E78.5 - Hyperlipidemia, unspecified Additional A&P Information Thank you for allowing me to participate in patient's care. Please feel free to call with questions or concerns. Attestations Medical Necessity Statement*: Needs hospital stay for management of decompensated CHF and atrial fibrillation with RVR. Coding Level of Care Code Acute Data Management Specialist for [facility] Diagnoses Atrial fibrillation I48.0 Atrial fibrillation type: paroxysmal Alcoholic cardiomyopathy I42.6 Hypertension I10 Hypertension type: essential hypertension Dyslipidemia E78.5
--- NOTE | 2019-11-07 14:31 | PC.NURSE ---
spoke with Dr newman about patient request for something to help him sleep tonight; verbal orders given xanax 0.25 at bedtime
--- NOTE | 2019-11-07 15:38 | PC.NURSE ---
verbal instructions given by Dr. Hartman to start cardizem 30 mg PO Q6H at 1800 hold gor systolic Blood pressure less than 110
[2019-11-07] MEDS: metoprolol tartrate 50 mg Tablet PO (17:44)
[2019-11-07] MEDS: ALPRAZolam 0.25 mg Tablet PO (21:02)
[2019-11-07] MEDS: atorvastatin 40 mg Tablet PO (21:02)
[2019-11-07] MEDS: sennosides 8.6 mg Tablet 17.2 MG PO (21:02)
[2019-11-08] MEDS: dilTIAZem 30 mg Tablet PO ×2 (00:53→06:31)
[2019-11-08 03:43] VITALS: BP 123/88; PULSE 88; RESP 23; TEMP 37; O2SAT 95
[2019-11-08 04:51] LABS: Basophils # 0.1 10^3/uL (0.0-0.1); Basophils % 0.5 %; Eosinophils # 0.2 10^3/uL (0.0-0.8); Eosinophils % 2.2 %; Hematocrit 47.6 % (42.0-52.0); Hemoglobin 15.9 g/dL (11.7-16.6); Lymphocytes # 1.7 10^3/uL (0.8-4.8); Lymphocytes % 14.8 %; Mean Corpuscular HGB Conc 33.4 g/dL (30.0-36.0); Mean Corpuscular Hemoglobin 32.5 pg (28.0-34.0); Mean Corpuscular Volume 97.3 fL (80-94); Mean Platelet Volume 10.6 fL (7.4-10.4); Monocytes % 9.2 %; Neutrophils # 7.7 10^3/uL (1.8-7.7); Nucleated Red Blood Cells % 0 %; Platelet Count 232 10^3/cmm (130-400); Red Blood Count 4.89 10^6/uL (4.1-5.3); Red Cell Distribution Width 12.7 % (12.1-15.1); White Blood Count 11.1 10^3/uL (4.0-10.0)
[2019-11-08 05:05] LABS: Alanine Aminotransferase 28 U/L (0-41); Albumin Level 3.7 g/dL (3.5-5.2); Alkaline Phosphatase 54 IU/L (40-130); Anion Gap 13.7 (5-19); Aspartate Amino Transferase 15 U/L (0-40); Blood Urea Nitrogen 16 mg/dL (8-23); Calcium 9.8 mg/dL (8.5-10.5); Carbon Dioxide 28 mmol/L (22-29); Chloride 100 mmol/L (98-107); Globulin 3.4 g/dL (1.3-4.6); Glucose 112 mg/dL (65-115); Osmolality Calculated 281 mOsm/kg (285-295); Potassium 4.7 mmol/L (3.5-5.1); Sodium 137 mmol/L (136-145); Total Bilirubin 0.9 mg/dL (0.15-1.2); Total Protein 7.1 g/dL (6.6-8.7)
[2019-11-08 07:25] VITALS: BP 122/72; PULSE 118; RESP 18; TEMP 36.4; O2SAT 93
--- NOTE | 2019-11-08 07:44 | USCV_ITS ---
Sumit Higuera Age: 74 Gender: M : 1945 Exam Date: 11/08/2019 09:30 Ordering Phys: Alicia Chong MD ([email or web address]) Technologist: Zaki Hua Exam Location: [facility] [place] Indication: BP: / HR: Rhythm: Atrial fibrillation Technical Quality: Good MEASUREMENTS (Male / Female) Normal Values Medications Patient given IV sedation by anesthesia service, for details please refer to the anesthesia report. Complications None. Proc. Components BINU was performed at multiple levels. FINDINGS Left Ventricle Normal left ventricular cavity size. Moderately decreased left ventricular systolic function. Left ventricular ejection fraction is estimated at 30-35 %. Moderate global left ventricular hypokinesis. Right Ventricle Normal right ventricular size and systolic function. Normal right ventricular systolic pressure. Right Atrium Normal right atrial size. Left Atrium Severely increased left atrial size. Mild spontaneous echo contrast noted in left atrium. LA Appendage Dilated left atrial appendage.Decreased flow velocities in the left atrial appendage. No thrombus visualized in the left atrial appendage. Mild spontaneous echo contrast noted in left atrial appendage. IA Septum Normal interatrial septum. No evidence of ASD or PFO based on color Doppler or agitated saline (bubble) study. Mitral Valve Mildly thickened mitral valve (anterior more than posterior). No mitral valve stenosis. Mild to moderate posteriorly directed mitral valve regurgitation. Aortic Valve Structurally normal trileaflet aortic valve. No aortic valve stenosis. Trace aortic valve regurgitation. Tricuspid Valve Structurally normal tricuspid valve. Trace to mild tricuspid valve regurgitation. Pulmonic Valve Structurally normal pulmonic valve. Trace pulmonary valve regurgitation. Pericardium No pericardial effusion. Aorta Normal size aortic root and proximal ascending aorta. No evidence of aortic dilation aneurysm or dissection. CONCLUSIONS 1. Normal left ventricular cavity size. Moderately decreased left ventricular systolic function. Left ventricular ejection fraction is estimated at 30-35 %. Moderate global left ventricular hypokinesis. 2. Normal right ventricular size and systolic function. 3. Severely increased left atrial size. 4. No thrombus visualized in the left atrial appendage. Mild spontaneous echo contrast noted in left atrial appendage. 5. Mild to moderate posteriorly directed mitral valve regurgitation. 6. When compared to previous echocardiogram dated 11/22/2017, left ventricle systolic function has decreased. Alicia Chong MD (Electronically Signed) Final Date: 08 November 2019 18:18 S
--- NOTE | 2019-11-08 09:12 | P.ANESASSM_ITS ---
Pre-Anesthetic Assessment Pre-Anesthetic Assessment: Height/Weight: Height 1.78 m Weight 96.615 kg Temp Pulse Resp BP Pulse Ox 97.5 F L 118 H 18 122/72 93 11/08/19 07:25 11/08/19 07:25 11/08/19 07:25 11/08/19 07:25 11/08/19 07:25 Social: Social History: Alcohol (daily) and No tobacco Exam: Pre-Anes Outpt Exam: alert, oriented x 3, clear to auscultation marylu aterally and regular rate & rhythm (irreg rhythm) Airway: Submandibular: WNL Cervical ROM: WNL MP: 2 Dentition: Partials (upper) History/ROS: No significant history except as noted Pulmonary: Pulmonary: MARVIN and Sleep apnea CV/HEM: CV/HEM: Afib, CHF and HTN : : None reported Hepatic: Hepatic: None reported GI: GI: None reported Metabolic: Metabolic: Hyperlipidemia Musc/skel: Musc/skel: None reported Neuropsych: Neuropsych: None reported Anesthetic Plan: ASA status: 4 Anesthesia: Anesthesia Evaluation and MAC Risk of > 500 ml blood loss (7ml/kg in children): No Meds/Allergies Current Medications: Current Medications Generic Name Dose Route Start Last Admin Trade Name Freq PRN Reason Stop Dose Admin Alprazolam 0.25 mg 11/07/19 21:00 11/07/19 21:02 Xanax PO 0.25 mg BEDTIME NURYS Administration Amiodarone HCl 200 mg 11/07/19 09:00 11/07/19 08:07 Cordarone PO 200 mg DAILY NURYS Administration Apixaban 5 mg 11/06/19 18:30 11/07/19 17:44 Eliquis PO 5 mg BID NURYS Administration Aspirin 81 mg 11/07/19 09:00 11/07/19 08:07 Aspirin Ec PO 81 mg DAILY NURYS Administration Atorvastatin Calci um 40 mg 11/06/19 21:00 11/07/19 21:02 Lipitor PO 40 mg BEDTIME NURYS Administration Digoxin 125 mcg 11/07/19 09:00 11/07/19 08:07 Lanoxin PO 125 mcg DAILY NURYS Administration Diltiazem HCl 30 mg 11/07/19 18:00 11/08/19 06:31 Cardizem PO 30 mg Q6H NURYS Administration Diltiazem HCl 125 mg/ Sodium 125 mls @ 0 mls/h r 11/06/19 12:15 11/07/19 13:15 Chloride IV Infused .Q0M [facility] Titration Protocol Per Protocol Metoprolol Tartrat e 50 mg 11/07/19 18:00 11/07/19 17:44 Lopressor PO 50 mg BID NURYS Administration Senna 17.2 mg 11/06/19 21:00 11/07/19 21:02 Senna Lax PO 17.2 mg BEDTIME [facility] Administration Spironolactone 25 mg 11/07/19 09:00 11/07/19 08:06 Aldactone PO 25 mg DAILY [facility] Administration Additional Medication Information: Current Medications Acetaminophen (Tylenol) 650 mg PO Q6H PRN PRN Reason: Mild/Mod Pain Or Temp >/= 101 Amiodarone HCl (Cordarone) 200 mg PO DAILY [facility] Last Admin: 11/07/19 08:07 Dose: 200 mg Documented by: Apixaban (Eliquis) 5 mg PO BID [facility] Last Admin: 11/07/19 08:06 Dose: 5 mg Documented by: Aspirin (Aspirin Ec) 81 mg PO DAILY [facility] Last Admin: 11/07/19 08:07 Dose: 81 mg Documented by: Atorvastatin Calcium (Lipitor) 40 mg PO BEDTIME [facility] Last Admin: 11/06/19 22:22 Dose: 40 mg Documented by: Bisacodyl (Dulcolax) 10 mg PO DAILY PRN PRN Reason: CONSTIPATION Digoxin (Lanoxin) 125 mcg PO DAILY [facility] Last Admin: 11/07/19 08:07 Dose: 125 mcg Documented by: Diltiazem HCl (Cardizem) 30 mg PO ONCE [facility] Last Admin: 11/07/19 12:36 Dose: 30 mg Documented by: Diltiazem HCl 125 mg/ Sodium (Chloride) 125 mls @ 0 mls/hr IV .Q0M [facility]; Protocol Last Titration: 11/07/19 12:07 Dose: 5 mg/hr, 5 mls/hr Documented by: Lactulose (Constulose) 10 gm PO DAILY PRN PRN Reason: CONSTIPA Metoprolol Tartrate (Lopressor) 50 mg PO BID [facility] Non-Formulary Medication (Cholecalciferol (Vitamin D3)) 50,000 unit PO .weekly [facility] Ondansetron HCl (Zofran) 4 mg IVP Q8H PRN PRN Reason: vomiting, or N/V if npo Senna (Senna Lax) 17.2 mg PO BEDTIME NURYS Last Admin: 11/06/19 22:23 Dose: 17.2 mg Documented by: Spironolactone (Aldactone) 25 mg PO DAILY NURYS Last Admin: 11/07/19 08:06 Dose: 25 mg Documented by: PFSH Anesthesia PFSH: Medical History Alcoholic cardiomyopathy Atrial fibrillation Chronic anticoagulation Dyslipidemia High cholesterol History of high blood pressure Hypertension Social History Smoking and tobacco status: never smoked Alcohol intake: current Alcohol intake frequency: 0-2 Drinks per Day Data Anesthesia CBC & Chem 7: 11/08/19 03:40 11/08/19 03:40 Other Labs: Laboratory Results - last 48 hr 11/06/19 11/06/19 11/06/19 11:53 11:53 11:53 WBC 12.2 H RBC 4.91 Hgb 15.9 Hct 48.6 MCV 99.0 H MCH 32.4 MCHC 32.7 RDW 12.9 Plt Count 219 MPV 10.3 Neut % (Auto) 70.6 Lymph % (Auto) 15.0 Wilkinson % (Auto) 9.5 Eos % (Auto) 0.5 Baso % (Auto) 0.2 Neut # (Auto) 8.7 H Lymph # (Auto) 1.8 Wilkinson # (Auto) 1.2 H Eos # (Auto) 0.1 Baso # (Auto) 0.0 Nucleated RBC % (auto) 0.2 Nucleated RBCs # 0.0 Sodium 137 Potassium 4.2 Chloride 99 Carbon Dioxide 25 Anion Gap 17.2 BUN 23 Creatinine 1.3 H Glucose 167 H Calculated Osmolality 285 Calcium 9.8 Total Bilirubin 0.8 AST 23 ALT 41 Alkaline Phosphatase 55 Troponin I 6 Hour Troponin I Hi Sens Del Troponin T Baseline 40 H Troponin T 120 Minute Delta Troponin T NT-Pro-B Natriuret Pep Total Protein 7.3 Albumin 4.3 Globulin 3.0 Procalcitonin TSH Digoxin 11/06/19 11/06/19 11/06/19 11:53 13:45 13:45 WBC RBC Hgb Hct MCV MCH MCHC RDW Plt Count MPV Neut % (Auto) Lymph % (Auto) Wilkinson % (Auto) Eos % (Auto) Baso % (Auto) Neut # (Auto) Lymph # (Auto) Wilkinson # (Auto) Eos # (Auto) Baso # (Auto) Nucleated RBC % (auto) Nucleated RBCs # Sodium Potassium Chloride Carbon Dioxide Anion Gap BUN Creatinine Glucose Calculated Osmolality Calcium Total Bilirubin AST ALT Alkaline Phosphatase Troponin I 6 Hour Troponin I Hi Sens Del Troponin T Baseline Troponin T 120 Minute 32.76 H Delta Troponin T -7.24 L NT-Pro-B Natriuret Pep 1691 H Total Protein Albumin Globulin Procalcitonin TSH 1.24 Digoxin 0.3 L 11/06/19 11/06/19 11/07/19 13:45 18:10 03:05 WBC 10.5 H RBC 4.53 Hgb 14.7 Hct 44.4 MCV 98.0 H MCH 32.5 MCHC 33.1 RDW 12.8 Plt Count 204 MPV 10.6 H Neut % (Auto) 66.6 Lymph % (Auto) 16.1 Wilkinson % (Auto) 9.5 Eos % (Auto) 1.4 Baso % (Auto) 0.5 Neut # (Auto) 7.0 Lymph # (Auto) 1.7 Wilkinson # (Auto) 1.0 H Eos # (Auto) 0.2 Baso # (Auto) 0.1 Nucleated RBC % (auto) 0 Nucleated RBCs # 0.0 Sodium Potassium Chloride Carbon Dioxide Anion Gap BUN Creatinine Glucose Calculated Osmolality Calcium Total Bilirubin AST ALT Alkaline Phosphatase Troponin I 6 Hour 32.41 H Troponin I Hi Sens Del -7.59 L Troponin T Baseline Troponin T 120 Minute Delta Troponin T NT-Pro-B Natriuret Pep Total Protein Albumin Globulin Procalcitonin 0.04 TSH Digoxin 11/07/19 11/08/19 11/08/19 03:05 03:40 03:40 WBC 11.1 H RBC 4.89 Hgb 15.9 Hct 47.6 MCV 97.3 H MCH 32.5 MCHC 33.4 RDW 12.7 Plt Count 232 MPV 10.6 H Neut % (Auto) 69.0 Lymph % (Auto) 14.8 Wilkinson % (Auto) 9.2 Eos % (Auto) 2.2 Baso % (Auto) 0.5 Neut # (Auto) 7.7 Lymph # (Auto) 1.7 Wilkinson # (Auto) 1.0 H Eos # (Auto) 0.2 Baso # (Auto) 0.1 Nucleated RBC % (auto) 0 Nucleated RBCs # 0.0 Sodium 139 137 Potassium 4.3 4.7 Chloride 104 100 Carbon Dioxide 22 28 Anion Gap 17.3 13.7 BUN 18 16 Creatinine 1.0 1.0 Glucose 107 112 Calculated Osmolality 285 281 L Calcium 9.4 9.8 Total Bilirubin 0.9 AST 15 ALT 28 Alkaline Phosphatase 54 Troponin I 6 Hour Troponin I Hi Sens Del Troponin T Baseline Troponin T 120 Minute Delta Troponin T NT-Pro-B Natriuret Pep Total Protein 7.1 Albumin 3.7 Globulin 3.4 Procalcitonin TSH Digoxin Cardiac Studies: No Data to Display
--- NOTE | 2019-11-08 09:24 | P.PN_ITS ---
Subjective Subjective: Interval history: No acute events overnight. In last 24 hours patient had been rate controlled till late last evening then he went into RVR as well. Today patient is examined just prior to elective cardioversion and BINU. Patient tolerated the procedure well and postprocedure patient went into sinus rhythm with heart rate around 50 to 55 bpm. Overnight he denies of having any nausea, vomiting, difficulty breathing, headache. Vitals/I&O/Wt Last Vital Signs Temp 97.5 F L 11/08/19 07:25 Pulse 118 H 11/08/19 07:25 Resp 18 11/08/19 07:25 BP 122/72 11/08/19 07:25 Pulse Ox 93 11/08/19 07:25 11/07/19 11/08/19 11/08/19 22:59 06:59 14:59 Intake Total 60 / 726.334 120 / 846.334 Output Total 1400 / 2100 575 / 2675 Balance -1340 / -1373.666 -455 / -1828.666 Weight last 48 hrs Weight 96.615 kg Weight 90.265 kg Weight 90.718 kg Physical Exam Narrative: EXAM NARRATIVE: General: No acute distress, AO x3 HEENT: PERRLA, pupils bilaterally equal and reactive Chest: Normal vesicular breath sounds, bilateral fine crackles present, equal good air entry bilaterally CVS: S1-S2 irregularly irregular, tachycardia, no gallops, no rubs Abdomen: Soft, nontender, no organomegaly, bowel sounds present Neuro: No focal deficits, no facial deformity, AO x3, power 5/5 in all limbs Data : 11/08/19 03:40 11/08/19 03:40 A&P Assessment and plan (1) Atrial fibrillation: Status: Acute Qualifiers: Atrial fibrillation type: paroxysmal Qualified Code(s): I48.0 - Paroxysmal atrial fibrillation Code(s): I48.91 - Unspecified atrial fibrillation (2) Alcoholic cardiomyopathy: Status: Acute Code(s): I42.6 - Alcoholic cardiomyopathy (3) Hypertension: Status: Acute Qualifiers: Hypertension type: essential hypertension Qualified Code(s): I10 - Essential (primary) hypertension Code(s): I10 - Essential (primary) hypertension (4) Dyslipidemia: Status: Acute Code(s): E78.5 - Hyperlipidemia, unspecified (5) Chronic anticoagulation: Status: Acute 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 At home patient is on amiodarone 200 mg daily, digoxin, metoprolol which he states he has been taking regularly. Post cardioversion patient went into heart rate of 50 bpm but rate controlled. Case discussed with Dr. Chong. For now the plan would be to continue amiodarone 200 mg daily. We will try to reintroduce metoprolol 25 twice daily later in the day today depending on how his heart rate does. For now hold off on oral Cardizem and digoxin. Continue Eliquis at home dose. TSH levels appreciated. Cardiomyopathy: Most likely nonischemic: Possibly because of alcoholic versus tachycardia induced. BINU concerning for EF of most likely around 20-25%. Good urine output after Lasix yesterday. Patient is around 5 L negative since admission. Continue home dose spironolactone. Most likely will need oral Lasix on discharge. Euvolemic today. Daily weights. Strict input output charting. Fall precaution. Continue with aspirin, statin. Full code. DVT prophylaxis: Eliquis Cardiac diet. If patient continues to do well can plan to discharge tomorrow. Attestations Medical Necessity Statement*: Atrial fibrillation with RVR post BINU electrocardioversion today. 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
--- NOTE | 2019-11-08 09:53 | PC.CHAP ---
Pastoral Care Encounter/Spiritual Assessment Type of Contact [] Declined counseling department chair visit [] Patient/Family/Request visit [] Outpatient visit [] Follow-up visit [] Physician referral [] Code/Alert [x] Routine visit [] Staff referral [] Actively dying [] Patient sleeping [x] Family support [] [] Out of room [] Palliative care [] [] Receiving care in room [] Pre-surgical visit [] Trauma [] Long length of stay [] ICU visit [] Other: Relational/Emotional Strength [] Patient feels connected with others/family/visitors/staff [] Distress [] Loneliness/isolation [] Abandonment Spirituality of Patient [] Person of Cathy [] Attends Zoroastrian of their Cathy [x] Believes in Prayer [] Reads Bible or Adventism materials [] There are Spiritual issues to be addressed 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 [x] Prayer [] Active listening [] Non-anxious presence [] Spiritual/emotional support [] Crisis/trauma care [] Spiritual counseling [] Bereavement support [] Provided bereavement packet [] Provided Bible/devotional materials [] Provided toy/stuffed animal, coloring book to patient or family member [] Provided Communion [] Anointing/[place] [] Salvation [x] Completed spiritual assessment [] Other: Impact on Illness or Injury [] Angry [] Fearful [] Anxious [] Often cries [] Exhaustion [] Unable to work [] Unable to attend mandaeism [] Unable to walk/stand [] Unable to read [] Unable to drive [] Unable to eat/drink [] Unable to sleep [] Unable to be with family [] Patient intubated [] Other: Summary waiting for procedure.. concerned by not anxious Time spent with patient 15 min
[2019-11-08] MEDS: spironolactone 25 mg Tablet PO (09:59)
[2019-11-08] MEDS: aspirin 81 mg EC Tablet PO (09:59)
[2019-11-08] MEDS: amiodarone 200 mg Tablet PO ×2 (09:59→17:59)
[2019-11-08] MEDS: apixaban 5 mg Tablet PO ×2 (09:59→17:58)
[2019-11-08] MEDS: sodium chloride 0.9% 1,000 ML 100 ML IV (10:20)
--- NOTE | 2019-11-08 10:24 | PC.NURSE ---
BINU with cardioversion 924 time out performed patient verbalized name and confirmed with wrist band verbal confirmation of procedure Dr. Castillo Bishop anesthesiology Kimberly RN [phone] start time 41 bubbles performed 947 shock delivered shock 150j NSR noted 949 stop time
[2019-11-08 11:01] VITALS: BP 102/70; PULSE 65; RESP 24; TEMP 36.6; O2SAT 96
[2019-11-08] MEDS: metoprolol tartrate 25 mg Tablet PO (13:18)
--- NOTE | 2019-11-08 14:54 | PM.PN ---
Subjective Subjective: Interval history: Patient continues to be in atrial fibrillation with RVR. BINU/CV discussed with the patient and he underwent successful BINU guided CV this morning. Medications: Reviewed: Yes Medication Review Details: Current Medications Acetaminophen (Tylenol) 650 mg PO Q6H PRN PRN Reason: Mild/Mod Pain Or Temp >/= 101 Alprazolam (Xanax) 0.25 mg PO BEDTIME [facility] Last Admin: 11/07/19 21:02 Dose: 0.25 mg Documented by: Amiodarone HCl (Cordarone) 200 mg PO DAILY [facility] Last Admin: 11/08/19 09:59 Dose: 200 mg Documented by: Apixaban (Eliquis) 5 mg PO BID [facility] Last Admin: 11/08/19 09:59 Dose: 5 mg Documented by: Aspirin (Aspirin Ec) 81 mg PO DAILY [facility] Last Admin: 11/08/19 09:59 Dose: 81 mg Documented by: Atorvastatin Calcium (Lipitor) 40 mg PO BEDTIME [facility] Last Admin: 11/07/19 21:02 Dose: 40 mg Documented by: Bisacodyl (Dulcolax) 10 mg PO DAILY PRN PRN Reason: CONSTIPATION Digoxin (Lanoxin) 125 mcg PO DAILY [facility] Last Admin: 11/08/19 09:59 Dose: Not Given Documented by: Diltiazem HCl (Cardizem) 30 mg PO Q6H [facility] Last Admin: 11/08/19 06:31 Dose: 30 mg Documented by: Diltiazem HCl 125 mg/ Sodium (Chloride) 125 mls @ 0 mls/hr IV .Q0M [facility]; Protocol Last Titration: 11/07/19 13:15 Dose: Infused Documented by: Sodium Chloride (Sodium Chloride 0.9%) 1,000 mls @ 100 mls/hr IV .Q10H ONE Stop: 11/08/19 19:08 Last Admin: 11/08/19 10:20 Dose: 100 mls/hr Documented by: Lactulose (Constulose) 10 gm PO DAILY PRN PRN Reason: CONSTIPA Metoprolol Tartrate (Lopressor) 25 mg PO 1200,0000 [facility] Non-Formulary Medication (Cholecalciferol (Vitamin D3)) 50,000 unit PO .weekly [facility] Ondansetron HCl (Zofran) 4 mg IVP Q8H PRN PRN Reason: vomiting, or N/V if npo Senna (Senna Lax) 17.2 mg PO BEDTIME [facility] Last Admin: 11/07/19 21:02 Dose: 17.2 mg Documented by: Spironolactone (Aldactone) 25 mg PO DAILY [facility] Last Admin: 11/08/19 09:59 Dose: 25 mg Documented by: Vitals/I&O/Wt Last Vital Signs Temp 97.8 F 11/08/19 11:01 Pulse 65 11/08/19 11:01 Resp 24 H 11/08/19 11:01 BP 102/70 11/08/19 11:01 Pulse Ox 96 11/08/19 11:01 11/07/19 11/08/19 11/08/19 22:59 06:59 14:59 Intake Total 60 / 726.334 120 / 846.334 120 / 120 Output Total 1400 / 2100 575 / 2675 Balance -1340 / -1373.666 -455 / -1828.666 120 / 120 Weight last 48 hrs Weight 213 lb Weight 199 lb Physical Exam Const: COMMON NORMALS: no apparent distress, oriented x3 and alert GENERAL APPEARANCE: cooperative, comfortable, well kempt and well hydrated HENMT: COMMON NORMALS: hearing grossly normal bilaterally, external ears normal and moist oral mucous membranes EXTERNAL EAR: Yes external ears normal Eye: COMMON NORMALS: EOMs intact bilaterally and no scleral icterus Neck/C-Spine: COMMON NORMALS: no JVD CAROTIDS: Yes normal carotid upstroke Resp: AUSCULTATION: crackles (bilateral basal fine crackles+), no rales, no rhonchi and no wheezes Cardio: COMMON NORMALS: no JVD, regular rate, regular rhythm and peripheral pulses 2+ throughout PALPATION: normal PMI RATE: regular rate RHYTHM: regular rhythm HEART SOUNDS: no click, no gallops and no murmurs BRUITS: no carotid bruits PERIPHERAL PULSES: pulses 2+ throughout, radial pulses present, posterior tibial pulses present and dorsalis pedis pulses present Extremity: GENERAL: No clubbing, No cyanosis, No edema and No pallor Neuro: COMMON NORMALS: oriented x3 SENSORIUM/ORIENTATION: Yes alert Psych: COMMON NORMALS: speech normal APPEARANCE: Yes well kempt SPEECH: Yes normal speech THOUGHT CONTENT: Yes normal thought content Data : 11/08/19 03:40 11/08/19 03:40 A&P Assessment and plan (1) Atrial fibrillation: Probably has been persistent for last few weeks. He underwent successful cardioversion this morning. -Cardizem and digoxin D/Samir after BINU/CV -Decrease metoprolol tartrate to 25 BID. -Increase Amiodarone to 200 mg twice a day. -continue Eliquis. 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 May have to discharge on lasix -Possibly transition to metoprolol succinate 50 mg in morning. -Add on ACEI/ARB / ARNI based on BP Status: Acute Code(s): I42.6 - Alcoholic cardiomyopathy (3) Hypertension: BP on lower side. continue to closely monitor blood pressure. Status: Acute Qualifiers: Hypertension type: essential hypertension Qualified Code(s): I10 - Essential (primary) hypertension Code(s): I10 - Essential (primary) hypertension (4) Dyslipidemia: Status: Acute Code(s): E78.5 - Hyperlipidemia, unspecified Additional A&P Information Thank you for allowing me to participate in patient's care. Please feel free to call with questions or concerns. Attestations Medical Necessity Statement*: Needs hospital for CHF and atrial fibrillation. Procedures Time out/Consent Time Out Performed: Yes Consent for Procedure: Consent obtained from patient, Risks & Benefits reviewed and Agrees to proceed with procedure Procedure Narrative BINU Procedure note Indication: Symptomatic atrial fibrillation with rapid ventricular response Sedation: Propofol by anesthesia Procedure was explained to the patient in detail and informed consent was obtained. Timeout was called. After achieving adequate sedation, the probe was inserted on first attempt. No blood on the probe post procedure. Prelim report: Dilated left ventricle with moderately to severely decreased systolic function. No left atrial or left atrial appendage mass or thrombus visualized. No ASD or PFO identified. Full report to follow. Cardioversion procedure note. Indication: Symptomatic atrial fibrillation Anticoagulation: Eliquis Sedation: Propofol by anesthesia After ruling out left atrial/left atrial appendage thrombus decision to proceed with cardioversion was made. Pads were placed anteroposteriorly. He received 150 J of synchronized biphasic shock ?1 with gnosticist of normal sinus rhythm. Patient tolerated the procedure well. 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
[2019-11-08 15:19] VITALS: BP 109/68; PULSE 69; RESP 18; TEMP 36.6; O2SAT 96
[2019-11-08 20:00] VITALS: BP 127/74; PULSE 6; RESP 24; TEMP 37; O2SAT 96
[2019-11-08] MEDS: sennosides 8.6 mg Tablet 17.2 MG PO (21:16)
[2019-11-08] MEDS: metoprolol succinate ER (24 HR) 25 mg Tablet PO (21:17)
[2019-11-08] MEDS: atorvastatin 40 mg Tablet PO (21:17)
[2019-11-08] MEDS: ALPRAZolam 0.25 mg Tablet PO (21:17)
[2019-11-09] VITALS: BP 127/83; PULSE 65; RESP 19; TEMP 36.8; O2SAT 96
[2019-11-09 04:00] VITALS: BP 116/70; PULSE 61; RESP 22; TEMP 36.9; O2SAT 96
[2019-11-09 07:07] VITALS: BP 106/73; PULSE 61; RESP 15; TEMP 36.8; O2SAT 96
--- NOTE | 2019-11-09 08:27 | P.PN_ITS ---
Subjective Subjective: Interval history: Patient continues to be in atrial fibrillation with RVR. BINU/CV discussed with the patient and he underwent successful BINU guided CV yesterday. No events on telemetry. Urine output approximately 1400 mL yesterday with net -850 mL. He feels well denies any complaints of chest pain shortness of breath or palpitations. Medications: Reviewed: Yes Medication Review Details: Current Medications Acetaminophen (Tylenol) 650 mg PO Q6H PRN PRN Reason: Mild/Mod Pain Or Temp >/= 101 Alprazolam (Xanax) 0.25 mg PO BEDTIME [facility] Last Admin: 11/08/19 21:17 Dose: 0.25 mg Documented by: Amiodarone HCl (Cordarone) 200 mg PO BID [facility] Last Admin: 11/08/19 17:59 Dose: 200 mg Documented by: Apixaban (Eliquis) 5 mg PO BID [facility] Last Admin: 11/08/19 17:58 Dose: 5 mg Documented by: Aspirin (Aspirin Ec) 81 mg PO DAILY [facility] Last Admin: 11/08/19 09:59 Dose: 81 mg Documented by: Atorvastatin Calcium (Lipitor) 40 mg PO BEDTIME [facility] Last Admin: 11/08/19 21:17 Dose: 40 mg Documented by: Bisacodyl (Dulcolax) 10 mg PO DAILY PRN PRN Reason: CONSTIPATION Digoxin (Lanoxin) 125 mcg PO DAILY [facility] Last Admin: 11/08/19 09:59 Dose: Not Given Documented by: Diltiazem HCl (Cardizem) 30 mg PO Q6H [facility] Last Admin: 11/08/19 06:31 Dose: 30 mg Documented by: Diltiazem HCl 125 mg/ Sodium (Chloride) 125 mls @ 0 mls/hr IV .Q0M [facility]; Protocol Last Titration: 11/07/19 13:15 Dose: Infused Documented by: Lactulose (Constulose) 10 gm PO DAILY PRN PRN Reason: CONSTIPA Metoprolol Succinate (Toprol Xl) 50 mg PO DAILY [facility] Non-Formulary Medication (Cholecalciferol (Vitamin D3)) 50,000 unit PO .weekly [facility] Ondansetron HCl (Zofran) 4 mg IVP Q8H PRN PRN Reason: vomiting, or N/V if npo Senna (Senna Lax) 17.2 mg PO BEDTIME [facility] Last Admin: 11/08/19 21:16 Dose: 17.2 mg Documented by: Spironolactone (Aldactone) 25 mg PO DAILY [facility] Last Admin: 11/08/19 09:59 Dose: 25 mg Documented by: Vitals/I&O/Wt Last Vital Signs Temp 98.2 F 11/09/19 07:07 Pulse 61 11/09/19 07:07 Resp 15 11/09/19 07:07 BP 106/73 11/09/19 07:07 Pulse Ox 96 11/09/19 07:07 11/08/19 11/09/19 11/09/19 22:59 06:59 14:59 Intake Total 360 / 480 120 / 600 Output Total 600 / 600 450 / 1050 400 / 400 Balance -240 / -120 -330 / -450 -400 / -400 Weight last 48 hrs Weight 208 lb 9.6 oz Weight 213 lb Physical Exam Const: COMMON NORMALS: no apparent distress, oriented x3 and alert GENERAL APPEARANCE: cooperative, comfortable, well kempt and well hydrated HENMT: COMMON NORMALS: hearing grossly normal bilaterally, external ears normal and moist oral mucous membranes EXTERNAL EAR: Yes external ears normal Eye: COMMON NORMALS: EOMs intact bilaterally and no scleral icterus Neck/C-Spine: COMMON NORMALS: no JVD CAROTIDS: Yes normal carotid upstroke Resp: COMMON NORMALS: clear to auscultation bilaterally AUSCULTATION: clear to auscultation bilaterally, no rales, no rhonchi and no wheezes Cardio: COMMON NORMALS: no JVD, regular rate, regular rhythm and peripheral pulses 2+ throughout PALPATION: normal PMI RATE: regular rate RHYTHM: regular rhythm HEART SOUNDS: no click, no gallops and no murmurs BRUITS: no carotid bruits PERIPHERAL PULSES: pulses 2+ throughout, radial pulses present, posterior tibial pulses present and dorsalis pedis pulses present Extremity: GENERAL: No clubbing, No cyanosis, No edema and No pallor Neuro: COMMON NORMALS: oriented x3 SENSORIUM/ORIENTATION: Yes alert Psych: COMMON NORMALS: speech normal APPEARANCE: Yes well kempt SPEECH: Yes normal speech THOUGHT CONTENT: Yes normal thought content Data : 11/08/19 03:40 11/08/19 03:40 A&P Assessment and plan (1) Atrial fibrillation: Probably has been persistent for last few weeks. He underwent successful cardioversion this morning. -Cardizem and digoxin D/Samir after BINU/CV Continue metoprolol succinate 50 mg daily -Increase Amiodarone to 200 mg twice a day for next two weeks and then decrease to 200 mg daily. -continue Eliquis. -Patient has remained in sinus rhythm throughout the night. He was advised on compliance with medications and seems stable to be discharged home from cardiac standpoint. Blood pressure and heart rate log twice a day until his next foll ow-up visit. -Follow-up with primary care physician in a week with BMP magnesium and BNP. -Follow-up with Dr. Ibrahim as scheduled next month. 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 May have to discharge on lasix -Possibly transition to metoprolol succinate 50 mg in morning. -Add lisinopril 2.5 mg today. -Follow up echo in 3 months. Status: Acute Code(s): I42.6 - Alcoholic cardiomyopathy (3) Hypertension: BP on lower side. continue to closely monitor blood pressure. Status: Acute Qualifiers: Hypertension type: essential hypertension Qualified Code(s): I10 - Essential (primary) hypertension Code(s): I10 - Essential (primary) hypertension (4) Dyslipidemia: Status: Acute Code(s): E78.5 - Hyperlipidemia, unspecified Additional A&P Information Thank you for allowing me to participate in patient's care. Please feel free to call with questions or concerns. 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
[2019-11-09] MEDS: aspirin 81 mg EC Tablet PO (08:50)
[2019-11-09] MEDS: lisinopril 2.5 mg Tablet PO (08:50)
[2019-11-09] MEDS: spironolactone 25 mg Tablet PO (08:50)
[2019-11-09] MEDS: apixaban 5 mg Tablet PO (08:50)
[2019-11-09] MEDS: amiodarone 200 mg Tablet PO (08:51)
--- NOTE | 2019-11-09 09:44 | DCPLANNER ---
Pg 2 of IM updated and reviewed with pt. No questions, he comments that he's always ready to go. Copy provided.
[2019-11-09] MEDS: metoprolol succinate ER (24 HR) 50 mg Tablet PO (10:29)
[2019-11-09 11:03] VITALS: BP 110/71; PULSE 64; RESP 16; TEMP 36.6; O2SAT 96
--- NOTE | 2019-11-09 11:30 | P.DS_ITS ---
Discharge Providers Date of Admission: 11/06/19 15:00 Date of Discharge: November 09, 2019 Attending Provider at Admission: Maximiliano Hartman MD Attending Provider at Discharge: Maximiliano Hartman MD Consults: Cardiology: Dr. Chong Primary Care Provider: CHADD Jain Diagnoses at Discharge Discharge Diagnosis (1) Atrial fibrillation: Status: Acute Qualifiers: Atrial fibrillation type: paroxysmal Qualified Code(s): I48.0 - Paroxysmal atrial fibrillation (2) Alcoholic cardiomyopathy: Status: Acute (3) Hypertension: Status: Acute Qualifiers: Hypertension type: essential hypertension Qualified Code(s): I10 - Essential (primary) hypertension (4) Dyslipidemia: Status: Acute Reason for Visit Reason for Visit: Reason For Visit: CP Hospital Course Discharge Summary: Sumit Higuera is a 74 year old male with past medical history of alcoholic cardiomyopathy, cardiac catheterization in 2011, hypertension, hyperlipidemia, atrial fibrillation with chronic anticoagulation with Eliquis, last known EF of 50% with diastolic dysfunction of grade 2 and echocardiogram from 2017 presented to the ER today because he has been feeling fluttering in his chest for last 2 days. Patient states he has been having worsening shortness of breath on exertion for more than 6 months along with symptoms of orthopnea and PND for last 2 to 3 weeks which is gotten worse over the weekend since he started having more fluttering in his chest. Today he was started having some chest pressure-like symptoms so he decided to come to the ER. In the ER he was found to have atrial fibrillation with rate going up to 150s so he was given a bolus of metoprolol followed by Cardizem drip of 15. Patient continued to remain in atrial fibrillation even after being on Cardizem drip and changing antiarrhythmics and rate limiting drugs around so he underwent BINU with electrocardioversion on November 07. He tolerated the procedure well and postprocedure he was in sinus rhythm but his heart rate was ranging from 60 bpm to 65 bpm so his rate limiting drugs were modified. He is being discharged with metoprolol 50 mg daily and his dose of amiodarone has been increased to 200 mg twice daily for next 2 weeks followed by 200 mg daily. BINU revealed that his EF was around 30 to 35% which was markedly decreased from his last echocardiogram so TATYANA inhibitor's were introduced into his medication list and he is being discharged on oral Lasix. Cardiomyopathy is most likely tachycardia induced along with a possible cardiomyopathy due to alcohol. Patient was counseled against alcohol binge drinking because it could cause atrial fibrillation and cardiomyopathy. Patient verbalized the understanding. Patient is been discharged hemodynamically stable condition and has been asked to follow-up with Dr. Ibrahim in next 1 month and to follow-up with his primary care physician with BMP and magnesium BMP in next 1 week. Physical Exam Narrative: EXAM NARRATIVE: General: No acute distress, AO x3 HEENT: PERRLA, pupils bilaterally equal and reactive Chest: Normal vesicular breath sounds, bilateral fine crackles present, equal good air entry bilaterally CVS: S1-S2 irregularly irregular, tachycardia, no gallops, no rubs Abdomen: Soft, nontender, no organomegaly, bowel sounds present Neuro: No focal deficits, no facial deformity, AO x3, power 5/5 in all limbs Discharge Data Data Completed and Pending: Completed Studies During Hospitalization Category Date Time Status XR chest 1V spenser ble [id number] Urgent Exams 11/06/19 11:43 Completed CV echo transesop hageal [id number] Routi ne Ultrasound 11/08/19 07:44 Completed Vitals: Last Vital Signs Temp 97.9 F 11/09/19 11:03 Pulse 64 11/09/19 11:03 Resp 16 11/09/19 11:03 BP 110/71 11/09/19 11:03 Pulse Ox 96 11/09/19 11:03 Discharge Plan Discharge Patient Disposition: Home, Self-Care Condition: Stable Prescriptions: New metoprolol succinate 50 mg Tablet Extended Release 24 Hr 50 mg PO DAILY Qty: 30 RF: 0 lisinopril 2.5 mg Tablet 2.5 mg PO DAILY Qty: 30 RF: 0 Lasix 20 mg tablet 20 mg PO DAILY Qty: 30 RF: 0 amiodarone 200 mg tablet 200 mg PO BID 14 Days Qty: 28 RF: 0 amiodarone 200 mg tablet 200 mg PO DAILY Qty: 60 RF: 0 Continued aspirin [Adult Low Dose Aspirin] 81 mg tablet,delayed release (DR/EC) 81 mg PO DAILY RF: 0 spironolactone 25 mg tablet 25 mg PO DAILY 90 Days Qty: 90 RF: 3 cholecalciferol (vitamin D3) 1,250 mcg (50,000 unit) capsule 50,000 unit PO .weekly Qty: 4 RF: 0 Eliquis 5 mg tablet 5 mg PO BID Qty: 60 RF: 5 atorvastatin 40 mg tablet 40 mg PO BEDTIME RF: 0 Discontinued amiodarone 200 mg tablet 200 mg PO DAILY RF: 0 digoxin 125 mcg (0.125 mg) tablet 125 mcg PO DAILY Qty: 30 RF: 5 metoprolol tartrate 25 mg tablet 25 mg PO BID Qty: 60 RF: 5 Discharge Orders: Discharge Order (Routine); Ordered 11/09/19 Ordered By: Maximiliano Hartman Referrals: Cayden Ibrahim MD [Physician] - 2 weeks (Your appointment with Dr. Ibrahim has been changed to November 21 at 3:15pm (He will be out of the office at the time of your original appointment). Any questions, please call them at [phone]) Scott Hernandez FNP [Primary Care Provider] - 2 weeks (You have a hospital followup with CHRISTIANE Hernandez at [facility] on November 26 at 9:00am. Any questions, please call them at [phone]) Discharge Diet: Cardiac Discharge Activity: Resume usual activity Patient Instructions: Metoprolol (By mouth), Lisinopril (By mouth), Furosemide (By mouth), Amiodarone (By mouth), Atrial Fibrillation (DC), Chronic Hypertension (DC), Chest Pain Stoplight Activity Restrictions/Additional Instructions: -Follow-up with primary care physician in a week with BMP magnesium and BNP. -Follow-up with Dr. Ibrahim as scheduled next month. 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
[2019-11-09 12:36] VITALS: BP 110/71; PULSE 64; RESP 16; TEMP 36.6; O2SAT 96
== END 2019-11-09 15:38 | disposition home or self-care (01) | DRG 310 ==
LOC: ER 11:47 → CSU 16:54
PROVIDERS: Physician Assistant; Admitting Provider Student in an Organized Health Care Education/Training Program; Emergency Provider Family Medicine; Family Provider Nurse Practitioner Family; PCP Nurse Practitioner Family; Visit Provider Student in an Organized Health Care Education/Training Program
DX: I48.91 Unspecified atrial fibrillation (principal); I42.6 Alcoholic cardiomyopathy; I10 Essential (primary) hypertension; E78.5 Hyperlipidemia, unspecified; Z79.01 Long term (current) use of anticoagulants; E78.00 Pure hypercholesterolemia, unspecified; F10.20 Alcohol dependence, uncomplicated; I34.0 Nonrheumatic mitral (valve) insufficiency; Z79.82 Long term (current) use of aspirin
CPT/HCPCS: 12345; 36415; 71045; 71046; 80048; 80053; 80162; 83880; 84145; 84443; 84484; 85025; 93005; 93312; 93320; 93325; 96375; 99284; J0282; J1160; J1940; J2001; J2704; J3490; J7030

== ENCOUNTER → 2020-04-15 10:36 | Outpatient (BNVA) | payer MEDICARE, BC, SELFPAY | PROVIDERS: Family Provider Nurse Practitioner Family; PCP Nurse Practitioner Family; Visit Provider Nurse Practitioner Family | DX: I10 Essential (primary) hypertension (principal); E78.5 Hyperlipidemia, unspecified; D64.9 Anemia, unspecified; R53.83 Other fatigue; Z79.899 Other long term (current) drug therapy; E55.9 Vitamin D deficiency, unspecified | CPT/HCPCS: 36415; 80053; 80061; 81003; 82306; 82607; 82746; 83036; 83550; 83880; 84443; 85025 ==

== ENCOUNTER 2020-05-13 14:27 | Outpatient (CLI) | payer MEDICARE, BC, SELFPAY ==
--- NOTE | 2020-05-13 14:32 | USCV_ITS ---
Sumit Higuera Age: 75 Gender: M : 1945 Exam Date: 05/13/2020 14:43 Ordering Phys: Gibson Campos M.D ([email or web address]) Technologist: Zaki Hua Exam Location: [facility] [place] Indication: CHF BP: 134 / 74 HR: 51 Rhythm: Atrial fibrillation Technical Quality: Adequate MEASUREMENTS (Male / Female) Normal Values 2D ECHO LV Diastolic Diameter PLAX 5.6 cm 4.2 - 5.9 / 3.9 - 5.3 cm LV Systolic Diameter PLAX 3.8 cm IVS Diastolic Thickness 1.4 cm 0.6 - 1.0 / 0.6 - 0.9 cm IVS Systolic Thickness 1.8 cm LVPW Diastolic Thickness 1.1 cm 0.6 - 1.0 / 0.6 - 0.9 cm LVPW Systolic Thickness 1.4 cm LVOT Diameter 2.1 cm LV Ejection Fraction 2D Teich 60.2 % LV Ejection Fraction MOD 2C 49.2 % LV Ejection Fraction 2C AL 48.8 % LA Diameter 4.1 cm LA Width 4.5 cm LA Height 5.3 cm RA Width 3.7 cm RA Height 4.2 cm Aorta at Sinotubular Diameter 1.2 cm M-MODE LV Diastolic Diameter MM 5.7 cm 4.2 - 5.9 / 3.9 - 5.3 cm LV Systolic Diameter MM 3.9 cm LV Ejection Fraction MM Teich 58.5 % IVS Diastolic Thickness MM 1.5 cm 0.6 - 1.0 / 0.6 - 0.9 cm IVS Systolic Thickness MM 2.0 cm LVPW Diastolic Thickness MM 1.1 cm 0.6 - 1.0 / 0.6 - 0.9 cm LVPW Systolic Thickness MM 1.7 cm RV Diastolic Diameter MM 1.1 cm Aortic Annulus Diameter 3.6 cm LA Ao Ratio MM 1.1 MV E Point Septal Separation 1.9 cm DOPPLER AV Peak Velocity 122.0 cm/s LVOT Peak Velocity 63.0 cm/s AV Area Cont Eq vti 1.7 cm squared AV Area Cont Eq pk 1.7 cm squared TR Peak Velocity 172.0 cm/s TR Peak Gradient 11.8 mmHg TV Peak E Velocity 100.0 cm/s Right Atrial Pressure 3.0 mmHg Pulmonary Artery Systolic Pressu 14.8 mmHg FINDINGS Left Ventricle Mildly dilated LV. LV systolic function is severely reduced with EF of 25 to 30%. Severe global hypokinesis is noted. Mild LVH is present. Diastolic function is indeterminate because of atrial fibrillation. Right Ventricle The right ventricle is normal in size and function. Right Atrium The right atrium is normal in size. Left Atrium The left atrium is severely enlarged. Mitral Valve Structurally normal mitral valve without significant stenosis or prolapse. There is mild to moderate mitral regurgitation. Aortic Valve Structurally normal aortic valve without significant sclerosis or stenosis. There is no aortic regurgitation. Tricuspid Valve Structurally normal tricuspid valve without significant stenosis or regurgitation. Insufficient TR jet to calculate RVSP. Pulmonic Valve Structurally normal pulmonic valve without significant stenosis. There is trace pulmonic regurgitation. Pericardium Normal pericardium without effusion. Aorta Normal ascending aorta dimension. CONCLUSIONS LV systolic function is severely reduced with EF of 25 to 30%. Severe global hypokinesis is noted. Diastolic function is indeterminate because of atrial fibrillation. Mild to moderate mitral regurgitation is noted. Compared to echocardiogram from 11/22/2017, EF is decreased from 50% to 30%. Gibson Campos MD (Electronically Signed) Final Date: 15 May 2020 12:05 S
== END 2020-05-13 14:28 | disposition home or self-care (01) ==
LOC: US 14:29
PROVIDERS: PCP Nurse Practitioner Family; Visit Provider Internal Medicine
DX: I34.0 Nonrheumatic mitral (valve) insufficiency (principal); I50.9 Heart failure, unspecified
CPT/HCPCS: 93306

== ENCOUNTER 2020-09-15 11:57 | Emergency (ER) | payer MEDICARE, BC, SELFPAY ==
[2020-09-15 12:17] VITALS: BP 131/80; PULSE 91; RESP 14; TEMP 36.6; O2SAT 99; BMI 28.7
--- NOTE | 2020-09-15 12:20 | XRR_ITS ---
PROCEDURE INFORMATION: Exam: XR Chest, 1 View Exam date and time: 09/15/2020 12:44 PM Age: 75 years old Clinical indication: Chest pain TECHNIQUE: Imaging protocol: XR of the chest Views: 1 view. COMPARISON: CR XR chest 1V portable [id number] 11/06/2019 12:29 PM FINDINGS: Lungs: Unremarkable. No consolidation. Pleural space: Unremarkable. No pleural effusion. No pneumothorax. Heart/Mediastinum: Unremarkable. No cardiomegaly. Bones/joints: Unremarkable. XR/XR chest 1V portable [id number] IMPRESSION: No acute findings.
--- NOTE | 2020-09-15 12:21 | ECG_ITS ---
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 HARVEYB: 1945 Requested By: Christopher Christianson Order Number: [id number] Reading MD: CURTIS SELBY Measurements Intervals [place] Rate: 91 P: VT: QRS: -46 QRSD: 137 T: 78 QT: 408 QTc: 503 Interpretive Statements ATRIAL FIBRILLATION INTRAVENTRICULAR CONDUCTION DELAY [130+ ms QRS DURATION] Compared to ECG 11/06/2019 17:55:15 Myocardial infarct finding no longer present Left anterior fascicular block no longer present Electronically Signed On 09-15-2020 21:23:38 PRECISION FARMING COORDINATOR by CURTIS SELBY [email or web address]
[2020-09-15 12:59] LABS: Basophils % 0.2 %; Eosinophils # 0.1 10^3/uL (0.0-0.8); Eosinophils % 0.8 %; Hematocrit 46.9 % (42.0-52.0); Hemoglobin 15.6 g/dL (11.7-16.6); Lymphocytes # 1.7 10^3/uL (0.8-4.8); Lymphocytes % 19.4 %; Mean Corpuscular HGB Conc 33.3 g/dL (30.0-36.0); Mean Corpuscular Hemoglobin 32.2 pg (28.0-34.0); Mean Corpuscular Volume 96.9 fL (80-94); Mean Platelet Volume 9.8 fL (7.4-10.4); Monocytes # 0.7 10^3/uL (0.2-0.9); Neutrophils # 6.32 10^3/uL (1.8-7.7); Neutrophils % 70.9 %; Nucleated Red Blood Cells % 0 %; Platelet Count 230 10^3/cmm (130-400); Red Blood Count 4.84 10^6/uL (4.1-5.3); Red Cell Distribution Width 12.8 % (12.1-15.1); White Blood Count 8.9 10^3/uL (4.0-10.0)
[2020-09-15 13:17] LABS: Partial Thromboplastin Time 33.1 SECONDS (23.9-36.7)
[2020-09-15 13:25] LABS: Troponin(5th) Baseline 31 ng/L (0-15)
--- NOTE | 2020-09-15 13:35 | PC.PHAR ---
pts states the pt is suppose to be taking lasix 20mg bid but is only taking 20mg once a day
--- NOTE | 2020-09-15 13:59 | W.ED.ARRPALP ---
HPI - Arrhythmia/Palpitations General: Chief Complaint: Arrhythmia/Palpitations Stated Complaint: AFIB, SOB, fatigue, chest pains yesterday Time Seen by Provider: 09/15/20 12:17 Source: patient and family () Mode of arrival: ambulatory Limitations: no limitations History of Present Illness: HPI narrative: This is a 75-year-old male with a history of atrial fibrillation who presents to the emergency department with palpitations and chest pain that happened yesterday. Symptoms have since resolved but because he had chest pain he was brought to the emergency department to be evaluated. He denies any nausea or vomiting, no diaphoresis, no other symptoms. MD complaint: rapid heart beat Onset (ago): day(s) (1) Duration: intermittent Severity: mild Context: occurred during rest Arrhythmia history: atrial fibrillation Associated symptoms: Deny anxiety, cough, diaphoresis, muscle cramps, nausea, paresthesias, pre-syncope, sense of impending doom, short of breath, syncope or vomiting Review of Systems General: Reports: 10 or more systems reviewed and unremarkable except in HPI and below Const: Denies: diaphoresis Eyes: Denies: change in vision or blurry vision ENMT: Denies: throat pain, enlarged tonsils, odynophagia, hoarseness, mouth pain or swelling of lips/tongue Card: Denies: syncope or pre-syncope Resp: Denies: dyspnea, productive cough or non-productive cough GI: Denies: nausea or vomiting : Denies: flank pain, dysuria, urinary frequency, urinary urgency or urinary hesitancy Musc: Denies: muscle cramps Skin/Breast: Denies: rash, pruritus or erythema Neuro: Denies: headache(s), numbness in extremities or weakness in extremities Psych: Denies: anxiety Endo: Denies: polyuria, polydipsia or tired all the time PFS ED PFSH: Medical History (Updated 09/15/20 @ 15:59 by Lia Billings MD, [facility] [place]) Alcoholic cardiomyopathy Anemia Atrial fibrillation Chronic anticoagulation Congestive heart failure Dyslipidemia Fatigue High cholesterol History of high blood pressure Hypertension Medication management Vitamin D deficiency Social History Smoking and tobacco status: never smoked Alcohol intake: current Alcohol intake frequency: 0-2 Drinks per Day Physical Exam Const: COMMON NORMALS: no acute distress, average body habitus, patient oriented x3, no limitations, healthy appearing, alert and well nourished HENMT: COMMON NORMALS: normocephalic, atraumatic and moist oral mucous membranes HEAD & SCALP: normocephalic and atraumatic Neck/C-Spine: COMMON NORMALS: no meningeal signs and no JVD Resp: COMMON NORMALS: normal respiratory effort, No retractions, No use of accessory muscles, clear to auscultation bilaterally and percussion normal AUSCULTATION: clear to auscultation bilaterally PERCUSSION: percussion normal Cardio: COMMON NORMALS: no JVD, regular rate, regular rhythm, S1 normal heart sound present, S2 normal heart sound present, No gallops present (Cardio), No clicks present (Cardio), No murmurs present (Cardio), No rub (Cardio) and Peripheral pulses 2+ throughout RATE: regular rate RHYTHM: regular rhythm HEART SOUNDS: S1 normal heart sound present and S2 normal heart sound present PERIPHERAL PULSES: Peripheral pulses 2+ throughout GI: COMMON NORMALS: Normal to inspection, nondistended, normoactive bowel sounds present, Soft to palpation, non-tender, No hepatosplenomegaly present, no masses and no bruits PALPATION: Yes Soft to palpation and Yes No hepatosplenomegaly present Extremity: COMMON NORMALS: normal to inspection, full ROM, capillary refill normal, no calf tenderness and no pedal edema Neuro: COMMON NORMALS: patient oriented x3 SENSORIUM/ORIENTATION: Yes alert MENINGEAL SIGNS: Yes no meningeal signs Skin: COMMON NORMALS: no rashes or lesions noted, no wounds, turgor normal, no jaundice, no petechiae and no mottling GENERAL SKIN EXAM: no rashes or lesions noted and turgor normal Course Reevaluation(s): Reevaluation #1: Discussed his lab and imaging findings with him.Negative imaging findings. Mildly elevated troponin but just 2-hour delta was not significantly elevated. He has not been tachycardic throughout his ED stay. We will discharge him home with no new orders. He is to follow-up with his service writer advisor within 3 days. He voiced understanding and he is in agreement with the plan. Time: 15:54 Vital Signs: Vital signs: Vital Signs Temperature 97.9 F 09/15/20 12:17 Pulse Rate 80 09/15/20 16:14 Respiratory Rate 18 09/15/20 16:14 Blood Pressure 123/83 09/15/20 16:14 Pulse Oximetry 98 09/15/20 16:14 MDM - Arrhythmia/Palpitations MDM Narrative: Medical decision making narrative: 75-year-old male who had chest pain and palpitations yesterday but who waited till today to present to the ED. Evaluation in the ED was unremarkable and did not reveal any cause for his symptoms. He does have atrial fibrillation but he is rate controlled. He is discharged home with no new orders. Medical Records: Attestation: I reviewed the patient's medical records. Lab Data: Attestation: I reviewed the patient's lab results. Labs: Lab Results 09/15/20 09/15/20 09/15/20 Range/Units 12:42 12:43 12:43 WBC 8.9 (4.0-10.0) 10^3/ uL RBC 4.84 (4.1-5.3) 10^6/u L Hgb 15.6 (11.7-16.6) g/dL Hct 46.9 (42.0-52.0) % MCV 96.9 H (80-94) fL MCH 32.2 (28.0-34.0) pg MCHC 33.3 (30.0-36.0) g/dL RDW 12.8 (12.1-15.1) % Plt Count 230 (130-400) 10^3/c mm MPV 9.8 (7.4-10.4) fL Neut % (Auto) 70.9 % Lymph % (Auto) 19.4 % [place] % (Auto) 8.0 % Eos % (Auto) 0.8 % Baso % (Auto) 0.2 % Neut # (Auto) 6.32 (1.8-7.7) 10^3/u L Lymph # (Auto) 1.7 (0.8-4.8) 10^3/u L [place] # (Auto) 0.7 (0.2-0.9) 10^3/u L Eos # (Auto) 0.1 (0.0-0.8) 10^3/u L Baso # (Auto) 0.0 (0.0-0.1) 10^3/u L Nucleated RBC % (a uto) 0 % Nucleated RBCs # 0.0 /100WBC PT 15.60 H (12.1-14.9) SECO NDS INR 1.20 (0.8-1.2) APTT 33.1 (23.9-36.7) SECO NDS Sodium 137 (136-145) mmol/L Potassium 4.6 (3.5-5.1) mmol/L Chloride 98 (98-107) mmol/L Carbon Dioxide 25 (22-29) mmol/L Anion Gap 18.6 (5-19) BUN 18 (8-23) mg/dL Creatinine 1.2 (0.7-1.2) mg/dL GFR Calculation Not Reportable Glucose 124 H (65-115) mg/dL Calculated Osmolal ity 287 (285-295) mOsm/k g Calcium 9.4 (8.5-10.5) mg/dL Total Bilirubin 0.9 (0.15-1.2) mg/dL AST 20 (0-40) U/L ALT 18 (0-41) U/L Alkaline Phosphata se 65 (40-130) IU/L Troponin T Baselin e (0-15) ng/L Troponin T 120 Min chase (0-15) ng/L Delta Troponin T (0-10) ABS# Troponin T Hi Sens 6Hr Troponin T Hi Sens 6Hr Delta NT-Pro-B Natriuret Pep 216 H (0-125) pg/mL Total Protein 9.2 H (6.6-8.7) g/dL Albumin 4.9 (3.5-5.2) g/dL Globulin 4.3 (1.3-4.6) g/dL 09/15/20 09/15/20 09/15/20 Range/Units 12:43 14:55 18:43 WBC (4.0-10.0) 10^3/ uL RBC (4.1-5.3) 10^6/u L Hgb (11.7-16.6) g/dL Hct (42.0-52.0) % MCV (80-94) fL MCH (28.0-34.0) pg MCHC (30.0-36.0) g/dL RDW (12.1-15.1) % Plt Count (130-400) 10^3/c mm MPV (7.4-10.4) fL Neut % (Auto) % Lymph % (Auto) % [place] % (Auto) % Eos % (Auto) % Baso % (Auto) % Neut # (Auto) (1.8-7.7) 10^3/u L Lymph # (Auto) (0.8-4.8) 10^3/u L [place] # (Auto) (0.2-0.9) 10^3/u L Eos # (Auto) (0.0-0.8) 10^3/u L Baso # (Auto) (0.0-0.1) 10^3/u L Nucleated RBC % (a uto) % Nucleated RBCs # /100WBC PT (12.1-14.9) SECO NDS INR (0.8-1.2) APTT (23.9-36.7) SECO NDS Sodium (136-145) mmol/L Potassium (3.5-5.1) mmol/L Chloride (98-107) mmol/L Carbon Dioxide (22-29) mmol/L Anion Gap (5-19) BUN (8-23) mg/dL Creatinine (0.7-1.2) mg/dL GFR Calculation Glucose (65-115) mg/dL Calculated Osmolal ity (285-295) mOsm/k g Calcium (8.5-10.5) mg/dL Total Bilirubin (0.15-1.2) mg/dL AST (0-40) U/L ALT (0-41) U/L Alkaline Phosphata se (40-130) IU/L Troponin T Baselin e 31 H (0-15) ng/L Troponin T 120 Min chase 23.91 H (0-15) ng/L Delta Troponin T -7.09 L (0-10) ABS# Troponin T Hi Sens 6Hr Cancelled Troponin T Hi Sens 6Hr Delta Cancelled NT-Pro-B Natriuret Pep (0-125) pg/mL Total Protein (6.6-8.7) g/dL Albumin (3.5-5.2) g/dL Globulin (1.3-4.6) g/dL Imaging Data^: CXR: Attestation: I personally reviewed and interpreted this imaging study as follows: Radiologist's impression: [address] [address] XRay Report Signed Patient: Sumit Higuera #: [id number] : 6Acct#:[id number] Age/Sex: 75 / MADM Date: 09/15/20 Loc: ERRoom/Bed: Attending Dr: Ordering Provider/Ordering MD: Christopher Christianson DO Date of Service: 09/15/20 Procedure(s): XR chest 1V portable [id number] Accession Number(s): [id number] Report Number: [id number] PROCEDURE INFORMATION: Exam: XR Chest, 1 View Exam date and time: 09/15/2020 12:44 PM Age: 75 years old Clinical indication: Chest pain TECHNIQUE: Imaging protocol: XR of the chest Views: 1 view. COMPARISON: CR XR chest 1V portable [id number] 11/06/2019 12:29 PM FINDINGS: Lungs: Unremarkable. No consolidation. Pleural space: Unremarkable. No pleural effusion. No pneumothorax. Heart/Mediastinum: Unremarkable. No cardiomegaly. Bones/joints: Unremarkable. XR/XR chest 1V portable [id number] IMPRESSION: No acute findings. Dictated By:Robert Marcelo Signed By:Veronika Marcelo Date/Time:09/15/20 1349 DD/ 1348 EKG Data^: EKG 1: Attestation: I personally reviewed and interpreted this EKG as follows: EKG interpretation date: 09/15/20 EKG interpretation time: 16:48 Prior EKG tracings: available for review Interpretation: Atrial fibrillation. Heart rate [address] changes. Other EKG comments: Chest X-Ray 09/15/20 12:20 IMPRESSION: No acute findings. Discharge Plan Discharge Patient Disposition: Home Clinical Impression: Chest pain Qualifiers: Chest pain type: unspecified Qualified Code(s): R07.9 - Chest pain, unspecified A-fib Qualifiers: Atrial fibrillation type: unspecified chronic Qualified Code(s): I48.20 - Chronic atrial fibrillation, unspecified Condition: Stable Prescriptions: Continued aspirin [Adult Low Dose Aspirin] 81 mg tablet,delayed release (DR/EC) 81 mg PO DAILY@07 RF: 0 furosemide 20 mg tablet 20 mg PO BID Qty: 90 RF: 3 atorvastatin 40 mg tablet 40 mg PO DAILY@ RF: 0 amiodarone 200 mg tablet 200 mg PO DAILY@ RF: 0 metoprolol succinate 50 mg tablet extended release 24 hr 50 mg PO DAILY@07 RF: 0 spironolactone 25 mg tablet 25 mg PO DAILY@07 RF: 0 Flomax 0.4 mg capsule 0.4 mg PO DAILY@ RF: 0 lisinopril 2.5 mg tablet 2.5 mg PO DAILY@07 RF: 0 cholecalciferol (vitamin D3) 1,250 mcg (50,000 unit) capsule 50,000 unit PO Q7D RF: 0 Eliquis 5 mg tablet 5 mg PO BID@ RF: 0 Discharge Orders: Discharge ED (Routine); Ordered 09/15/20 Ordered By: Lia Billings Referrals: CHRISTIANE Hernandez FNP [Primary Care Provider] - 1-3 days Gibson Campos M.D [Physician] - 1-3 days Discharge Diet: Usual diet Discharge Activity: Increase activity as tolerated Patient Instructions: Atrial Fibrillation (ED), Chest Pain (ED) Activity Restrictions/Additional Instructions: Return for any new or worsening symptoms. Follow-up with your primary care provider within 3 days. Call your service writer advisor office tomorrow and discuss what happened today. Coding Level of Care Code ED Fusing Machine Feeder for Byron Fwd Exam Comprehensive
[2020-09-15 14:08] VITALS: BP 108/77; PULSE 79; O2SAT 96
[2020-09-15 14:32] LABS: Alanine Aminotransferase 18 U/L (0-41); Albumin Level 4.9 g/dL (3.5-5.2); Alkaline Phosphatase 65 IU/L (40-130); Anion Gap 18.6 (5-19); Aspartate Amino Transferase 20 U/L (0-40); Blood Urea Nitrogen 18 mg/dL (8-23); Calcium 9.4 mg/dL (8.5-10.5); Carbon Dioxide 25 mmol/L (22-29); Chloride 98 mmol/L (98-107); Creatinine Clr Calc Pharmacy 61.1777; Glucose 124 mg/dL (65-115); NT Pro B Type Natriuretic Pept 216 pg/mL (0-125); Osmolality Calculated 287 mOsm/kg (285-295); Potassium 4.6 mmol/L (3.5-5.1); Sodium 137 mmol/L (136-145); Total Bilirubin 0.9 mg/dL (0.15-1.2)
[2020-09-15 15:33] LABS: Troponin 5 2HR 23.91 ng/L (0-15)
[2020-09-15 15:38] LABS: Troponin 5 2HR Delta -7.09 ABS# (0-10)
[2020-09-15 16:14] VITALS: BP 123/83; PULSE 80; RESP 18; O2SAT 98
[2020-09-16 20:04] LABS: Globulin 2.3 g/dL (1.3-4.6); Total Protein 7.2 g/dL (6.6-8.7)
== END 2020-09-15 16:13 | disposition home or self-care (01) ==
PROVIDERS: Emergency Medicine; Emergency Provider Family Medicine; PCP Nurse Practitioner Family
DX: R07.9 Chest pain, unspecified (principal); I48.20 Chronic atrial fibrillation, unspecified; Z79.82 Long term (current) use of aspirin; Z79.01 Long term (current) use of anticoagulants; I50.9 Heart failure, unspecified; E78.5 Hyperlipidemia, unspecified; I10 Essential (primary) hypertension
CPT/HCPCS: 12345; 36415; 71045; 80053; 83880; 84484; 85025; 85610; 85730; 93005; 99283

== ENCOUNTER 2020-10-03 06:00 | Outpatient (RCR) | payer MEDICARE, BC, SELFPAY | END 2020-10-20 23:59 | disposition home or self-care (01) | LOC: WPT 06:00 | PROVIDERS: PCP Nurse Practitioner Family; Referring Provider Nurse Practitioner Family; Visit Provider Nurse Practitioner Family | DX: R42 Dizziness and giddiness (principal) | CPT/HCPCS: 97161 ==

== ENCOUNTER 2020-11-05 08:19 | Outpatient (CLI) | payer MEDICARE, BC, SELFPAY ==
--- NOTE | 2020-11-05 08:45 | USCV_ITS ---
Sumit Higuera Age: 75 Gender: M : 1945 Exam Date: 11/05/2020 08:34 Ordering Phys: Gibson Campos M.D ([email or web address]) Technologist: Kia Landaverde Exam Location: [facility] [place] Indication: BP: / HR: 75 Rhythm: Atrial fibrillation Technical Quality: Fair MEASUREMENTS (Male / Female) Normal Values 2D ECHO LV Diastolic Diameter PLAX 5.9 cm 4.2 - 5.9 / 3.9 - 5.3 cm LV Systolic Diameter PLAX 5.2 cm LV Chamber Size 5.0 cm IVS Diastolic Thickness 1.0 cm 0.6 - 1.0 / 0.6 - 0.9 cm IVS Systolic Thickness 1.4 cm LVPW Diastolic Thickness 0.9 cm 0.6 - 1.0 / 0.6 - 0.9 cm LVPW Systolic Thickness 0.5 cm RV Chamber Size 2.6 cm LVOT Diameter 2.0 cm LV Ejection Fraction 2D Teich 24.9 % LV Ejection Fraction MOD 2C 25.9 % LV Ejection Fraction 2C AL 25.3 % LA Diameter 5.0 cm LA Width 4.0 cm LA Height 6.6 cm RA Width 3.0 cm RA Height 5.0 cm Aorta at Sinotubular Diameter 3.3 cm M-MODE LV Diastolic Diameter MM 6.0 cm 4.2 - 5.9 / 3.9 - 5.3 cm LV Systolic Diameter MM 5.7 cm LV Ejection Fraction MM Teich 11.4 % IVS Diastolic Thickness MM 1.0 cm 0.6 - 1.0 / 0.6 - 0.9 cm IVS Systolic Thickness MM 1.1 cm LVPW Diastolic Thickness MM 0.8 cm 0.6 - 1.0 / 0.6 - 0.9 cm LVPW Systolic Thickness MM 1.2 cm Aortic Annulus Diameter 3.4 cm LA Ao Ratio MM 1.5 MV E Point Septal Separation 1.7 cm DOPPLER AV Peak Velocity 119.0 cm/s LVOT Peak Velocity 84.0 cm/s AV Area Cont Eq vti 2.3 cm squared AV Area Cont Eq pk 2.3 cm squared MV E' Velocity 12.0 cm/s TR Peak Velocity 149.8 cm/s TR Peak Gradient 9.0 mmHg TR Mean Velocity 127.9 cm/s TR Mean Gradient 6.6 mmHg TR Velocity Time Integral 36.2 cm TV Peak E Velocity 47.0 cm/s Right Atrial Pressure 3.0 mmHg Pulmonary Artery Systolic Pressu 12.0 mmHg PV Peak Velocity 65.0 cm/s RV Acceleration Time 0.1 s RV Ejection Time 0.3 s RV AcT/ET 0.4 FINDINGS Left Ventricle Left ventricle is dilated. LV systolic function is severed reduced with EF of 25-30%. Severe global hypokinesis. Diastolic function is indeterminate because of atrial fibrillation Right Ventricle The right ventricle is normal in size and function. Right Atrium The right atrium is normal in size. Left Atrium The left atrium is severely enlarged Mitral Valve Structurally normal mitral valve without significant stenosis or prolapse. There is mild mitral regurgitation. Aortic Valve Structurally normal aortic valve without significant sclerosis or stenosis. There is no aortic regurgitation. Tricuspid Valve Structurally normal tricuspid valve without significant stenosis or regurgitation. Insufficient TR jet to calculate RVSP Pulmonic Valve Structurally normal pulmonic valve without significant stenosis. There is no pulmonic regurgitation. Pericardium Normal pericardium without effusion. Aorta Normal ascending aorta dimension. CONCLUSIONS LV systolic function is severely reduced with EF of 25-30% Diastolic function is indeterminate because of atrial fibrillation. Severely enlarged left atrium Mild mitral regurgitation is noted Compared to prior echocardiogram from 05/13/2020, no significant changes are noted Gibson Campos MD (Electronically Signed) Final Date: 10 November 2020 14:17 S
== END 2020-11-05 08:20 | disposition home or self-care (01) ==
LOC: US 08:20
PROVIDERS: PCP Nurse Practitioner Family; Visit Provider Internal Medicine
DX: I50.9 Heart failure, unspecified (principal); I48.91 Unspecified atrial fibrillation; I34.0 Nonrheumatic mitral (valve) insufficiency
CPT/HCPCS: 93306

== ENCOUNTER → 2020-11-22 08:49 | Outpatient (BNVA) | payer MEDICARE, BC, SELFPAY | PROVIDERS: PCP Nurse Practitioner Family; Visit Provider Internal Medicine | DX: I50.9 Heart failure, unspecified (principal); Z20.822 Contact with and (suspected) exposure to COVID-19 | CPT/HCPCS: 80048; 85025; 85610; 87635 ==

== ENCOUNTER 2020-11-27 07:22 | Day surgery (SDC) | payer MEDICARE, BC, SELFPAY ==
[2020-11-27] VITALS (21 sets, daily range): BP systolic 78–132; BP diastolic 51–89; PULSE 56–90; RESP 10–26; TEMP 36.3; O2SAT 93–98; BMI 29.5
--- NOTE | 2020-11-27 07:00 | XACV_ITS ---
Ht: 178 cm Wt: 93 kg BSA: 2.17 m2 Gender: Male : 1945 Any Known Allergies: No known allergies Exam Priority: Routine Procedure(s): Procedure Description: Diagnostic procedure Procedure Description: Left Heart Catheterization Procedure Description: Right heart cath Diagnostic Cath Status: Elective Diagnostic Findings * Patient has generalized coronary slow flow with QUANG 2 flow in LAD without significant obstructive coronary artery disease. * Right heart cath: RA pressure: 12 mmHg, RV pressure: 28/11(11)mmHg, PA pressure: 34/15 (23)mmHg, Wedge pressure: 27/23 (19)mmHg, AO sat: 94%, PA sat: 57.6%, Cardiac output:3.4l/min. * No significant disease noted in the Left Main, LAD, Circumflex, or RCA coronary arteries. * Coronary angiography shows right dominance. Conclusions 1. Normal right and left sided cardiac pressures. 2. No significant disease noted in the Left Main, LAD, Circumflex, or RCA coronary arteries. Recommendations * Optimal guideline directed medical therapy for heart failure. * Repeat echo in 3 months and if EF stays below 35%, will need ICD. * Outpatient cardiology follow up. Diagnostic RX Recommendation: medical therapy and/or counseling Anticoagulation: Heparin Pressures Phase:Rest AO : 92 / 11 ( 46 ) @ 4:20:00 AM LV : 98 / 5 / @ 4:20:00 AM 95 / 66 / @ 4:21:00 AM RV : 28 / 11 / @ 4:05:00 AM PA : 34 / 15 ( 23 ) @ 4:04:00 AM RA : a wave = v wave = mean = 12 @ 4:05:00 AM O2 Content Phase:Rest PA : O2 Content O2: 57.6 @ 4:20:00 AM Saturations Phase:Rest AO : 94 @ 4:20:00 AM PA : 58 @ 4:20:00 AM Cardiac Output Phase:Rest Mindi : 3 @ 4:20:00 AM Mindi Cardiac Index: 2 @ 4:20:00 AM Clinical Evaluation EBL: 5mL-10mL Procedural Details Procedure Consent Obtained. Admit Source: In Patient. Pre-Procedure Time Out. Identified patient by full name and date of as verbalized by the patient/guarantor. Does the consent match the physician's order: Yes. Accurate & Complete Informed Consent: Yes. Inpatient/Outpatient History & Physical on Chart: Yes. If H&P is completed, is and addenduem needed: N/A; If yes, is the addendum complete: N/A. Visualize and Verify Site with Patient/Guarantor: N/A. Relevant Radiology Images available: N/A. Pre-op teaching completed and patient verbalized understanding. The risks, benefits, and alternatives of sedation and/or procedure were discussed by physician. The patient agrees to continue. Procedure started. [facility] Clinical Fraility Score: 3: Managing Well. Chief Analytics Officer Indications: LV Dysfunction. Chief Analytics Officer Indications: Cardiomyopathy. Chest Pain Symptom Assessment: Atypical Angina. Cardiovascular Instability: No. Correct patient, site and procedure confirmed by cath team. PERRLA. Strong, equal hand economic forecaster bilaterally. Lungs clear x 5 lobes. IV Site on Arrival: 18 gauge in the right anticubital. IV Site on Arrival: 20 gauge in the left anticubital. Pre Procedural Pulses: bilateral dorsalis pedis was 3+. Pre Procedural Pulses: bilateral posterior tibial was 1+. Pre Procedural Pulses: bilateral radial was 3+. bilateral groins was prepped with chloroprep then draped in the usual sterile fashion. right radial was prepped with chloroprep then draped in the usual sterile fashion. Physician notified. Baseline sample Acquired. HR: 93 BPM. Physician arrived. Physician scrubbed in. Immediate Pre-Procedure Time Out. Correct Patient: Yes; Correct Procedure: Yes; Correct Site: Yes; Correct Patient Position: Yes; Correct Supplies: Yes; Dried Flammable Prep: Yes; Blood Products Available: N/A;. Lidocaine 1% infiltrated to the right brachial. Venous access obtained. [place]-Luisa MON catheter inserted. Meno guidewire was advanced through the guide catheter to help guide [place] MON . wire out. [place]-Luisa out. Lidocaine 1% infiltrated to the right radial. Arterial access obtained. oxygen 2LPM NC. A 5 sao tomean TIG catheter in over wire. wire out. Multiple views taken of left coronary artery. Catheter redirected to the RCA. Multiple views taken of right coronary artery. wire inserted. wire out. EDP Sample taken: LV 98/5,14; HR: 94 BPM; SpO2: 96%. Pullback taken: AO Off; LV Off; Mean: , Peak to Peak: , SEP: ; HR: 66 BPM; SpO2: 97%. Catheter out. TR band placed. Hemostasis obtained. Sheath(s) removed and manual pressure held until hemostasis was achieved. Sterile 4x4 and Op-site applied to the puncture site. No oozing or hematoma noted. Post sheath removal instructions were given and the patient verbalized understanding. PERRLA. Strong, equal hand economic forecaster bilaterally. No VTE prophylaxis required. Medication's Wasted: Lidocaine 1% = 18 mL. Medication's Wasted: Nitro = 49.8 mg. Medication's Wasted: Heparin = 1000 units. Total IV fluids: 250 mL. Contrast type used: Omnipaque 300 mgI/mL, 500 mL bottle. Contrast Material : Omnipaque 61 ml. 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 Complications: none. Estimated blood loss: 5mL-10mL. Procedure completed. Patient transferred by wheelchair to 1st floor. A TR Band was successful obtaining hemostatsis at the Right Radial artery insertion site. Vital chart was stopped. Access Site Site: Right Brachial Vein Sheath Size: 6 Fr Hemostasis Success: Unsuccessful Site: Right Radial artery Sheath Size: 6 Fr Hemostasis Method: TR Band Hemostasis Success: Successful Procedure Medications Start: 8:51 AM Stop: 8:51 AM Medication: Versed Amount: 1 mg Route: I.V. Start: 8:51 AM Stop: 8:51 AM Medication: Fentanyl Amount: 50 mcg Route: I.V. Start: 8:58 AM Stop: 8:58 AM Medication: Versed Amount: 1 mg Route: I.V. Start: 8:58 AM Stop: 8:58 AM Medication: Fentanyl Amount: 50 mcg Route: I.V. Start: 9:11 AM Stop: 9:11 AM Medication: Nitrogylcerin Amount: 200 mcg Route: I.A. Start: 9:13 AM Stop: 9:13 AM Medication: Heparin Amount: 5000 units Route: I.V. Start: 9:15 AM Stop: 9:15 AM Medication: 0.9% Saline Amount: 250 ml Route: I.V. bolus I, the attending physician, have reviewed and verified all procedure medications. Yes, all medications given per verbal order History/Risk Factors Hypertension: Yes Dyslipidemia: Yes Tobacco Use: Never Report Signatures Finalized by Gibson Campos MD on 12/11/2020 05:38 PM
[2020-11-27] MEDS: diphenhydrAMINE 50 mg Capsule PO (08:10)
--- NOTE | 2020-11-27 08:23 | P.HP_ITS ---
Same Day Surgery H&P Indication for Procedure/HPI DATE OF PROCEDURE: November 27, 2020 CHIEF COMPLAINT/INDICATIONFOR SURGICAL PROCEDURE: New onset heart failure/EF drop PREOP DIAGNOSIS: New onset heart failure/EF drop PLANNED PROCEDRUE: Operation Date: 11/27/20 08:30 Proposed Procedures p left and right Cardiac Catheterization 03875 I50.9(Bilateral) - Gibson Campos M.D 75-year-old man with past medical history of atrial fibrillation on Eliquis, alcoholic cardiomyopathy has dyspnea on exertion and fatigue. Also has dizzin ess. He also has lack of energy. His echo shows severely reduced LV function to 25-30%. This was a new drop for him. We will perform right and left heart cath. ROS CONSTITUTIONAL: No fever chills weight loss or gain or night sweats. [] HEENT: Normocephalic, atraumatic.[] RESPIRATORY: No cough, sputum, hemoptysis or wheezing.[] CARDIOVASCULAR: Has shortness of breath, no chest pain, PND, orthopnea, lower extremity edema, presyncope or syncope. [] GI: no nausea vomiting diarrhea. [] LUMBER CHAIN OFFBEARER: No numbness, tingling, weakness or loss of function in any part of the body. [] MUSCULOSKELETAL: No knee or joint pain or rashes. [] Medications/Allergies* Home Medications Medication Instructions Recorded Confirmed Type aspirin 81 mg tablet,delayed 81 mg PO DAILY@07 tab 08/28/19 11/26/20 History release amiodarone 200 mg PO DAILY@09/15/20 11/26/20 History atorvastatin 40 mg PO DAILY@09/15/20 11/26/20 History cholecalciferol (vitamin D3) 50,000 unit PO Q7D 09/15/20 11/26/20 History lisinopril 2.5 mg PO DAILY@09/15/20 11/26/20 History tamsulosin [Flomax] 0.4 mg PO DAILY@09/15/20 11/26/20 History spironolactone 25 mg tablet 12.5 mg PO DAILY@07 tab 10/15/20 11/26/20 History metoprolol succinate 25 mg 12.5 mg PO DAILY 10/17/20 11/26/20 History tablet,extended release 24 hr furosemide 20 mg PO DAILY 11/26/20 11/26/20 History Allergies/Adverse Reactions Allergy/AdvReac Type Severity Reaction Status Date / Time No Known Allergies Allergy Verified 10/15/20 15:05 Current Medications: Generic Name Dose Route Start Last Admin Trade Name Rebekah PRN Reason Stop Dose Admin Sodium Chloride 1,000 mls @ 50 mls/hr 11/27/20 06:00 11/27/20 08:10 Sodium Chloride 0.9% IV 11/28/20 01:59 Not Given .Q20H ONE Pertinent History/Comorbid Conditions* Medical History (Updated 10/03/20 @ 13:56 by CHADD Tejeda) Alcoholic cardiomyopathy Anemia Atrial fibrillation Chronic anticoagulation Congestive heart failure Dyslipidemia Fatigue High cholesterol History of high blood pressure Hypertension Medication management Otitis externa Vitamin D deficiency Social History Smoking and tobacco status: never smoked Alcohol intake: current Alcohol intake frequency: 0-2 Drinks per Day Pertinent Exam Findings alert, oriented x 3 and clear to auscultation bilaterally GENERAL: Patient is alert, awake and oriented x3. [] NECK: No jugular vein distension. [] HEENT: No cyanosis. No icterus. No pallor. [] HEART: Regular S1 and S2. No murmur, rub or gallop. [] LUNGS: Clear to auscultate bilaterally. [] ABDOMEN: Soft, nontender and nondistended. Positive bowel sounds. No guarding, rebound or tenderness. [] CENTRAL NERVOUS SYSTEM: Grossly nonfocal. [] EXTREMITIES: Lower extremities with no edema bilaterally. Pulses palpable in the lower extremities, both dorsalis pedis and posterior tibial. [] Conscious Sedation Assessment PATIENT ASSESSED PRIOR TO SEDATION, WITH NO CHANGE NOTED: Yes AIRWAY EVAL/ANESTHESIA PLAN: normal airway, see other exam findings, ASA III, Monitored Anesthesia, Local Anesthesia, Risks, benefits & alternatives of sedation and/or procedure discussed and Patient agrees to continue as planned Recommendations Surgery/Procedure today (Right heart cath + left heart cath with possible percutaneous coronary intervention) Coding Level of Care Code Acute Oncology Technician for Byron Bond
--- NOTE | 2020-11-27 09:45 | PC.NURSE ---
From [place] Received pt from dye lab technician. Pt is drowsy post sedation, denies any chest pain or discomfort. Not in distress. TR band intact. No hematoma, swelling, bleeding on right wrist. Radial pulse +3. Skin is warm. VS checked and monitored. Call light within reach. at bedside. Instructed pt and on activity restrictions post radial access. Pt teaches back.
--- NOTE | 2020-11-27 10:04 | PC.CHAP ---
Pastoral Care Encounter/Spiritual Assessment Type of Contact [] Declined sergeant at arms visit [] Patient/Family/Request visit [] Outpatient visit [] Follow-up visit [] Physician referral [] Code/Alert [x] Routine visit [] Staff referral [] Actively dying [] Patient sleeping [x] Family support [] [] Out of room [] Palliative care [] [] Receiving care in room [] Pre-surgical visit [] Trauma [] Long length of stay [] ICU visit [] Other: Relational/Emotional Strength [] Patient feels connected with others/family/visitors/staff [] Distress [] Loneliness/isolation [] Abandonment Spirituality of Patient [x] Person of Cathy [] Attends Zoroastrian of their Cathy [] Believes in Prayer [] Reads Bible or Mandaeism materials [] There are Spiritual issues to be addressed Hvac Design Engineer Interventions [x] Prayer [x] Active listening [x] Non-anxious presence [x] Spiritual/emotional support [] Crisis/trauma care [] Spiritual counseling [] Bereavement support [] Provided bereavement packet [] Provided Bible/devotional materials [] Provided toy/stuffed animal, coloring book to patient or family member [] Provided Communion [] Anointing/[place] [] Salvation [x] Completed spiritual assessment [] Other: Impact on Illness or Injury [] Angry [] Fearful [] Anxious [] Often cries [] Exhaustion [] Unable to work [] Unable to attend shinto [] Unable to walk/stand [] Unable to read [] Unable to drive [] Unable to eat/drink [] Unable to sleep [] Unable to be with family [] Patient intubated [] Other: Summary patient got good report on tests.. no blockage Time spent with patient 10 min
--- NOTE | 2020-11-27 12:53 | PC.NURSE ---
TR Band off Cleanse site. no bleeding, hematoma, swelling or bleeding noted. Radial pulse is palpable +3. Applied 2x2 dressing for pressure and covered with tegaderm dressing. Activity restrictions provided to pt.
--- NOTE | 2020-11-27 14:36 | PC.NURSE ---
MAP Pt's BP ranges from 81/60 (67) to 111/77 (88). Pt up ad thomas to bathroom and denies any pain, not in distress, no dizziness. Editorial Writer has been made aware. Instructed discuss to pt to check his bp twice at home and keep a log/record to bring to his next doctor's appointments. Pt verbalizes understanding.
--- NOTE | 2020-11-27 15:43 | PC.NURSE ---
Discharge to home with Instructed pt to follow-up with his pcp,sap bpc architect and CABLE TOOL DRILLER as scheduled. Informed pt on dose change to his Metoprolol. Educated pt on CHF stoplight and post angiogram home care instructions such as wound care and activity restrictions. Discharge packet provided to pt.
== END 2020-11-27 15:28 | disposition home or self-care (01) ==
LOC: CCL 07:25 → CSU 09:38
PROVIDERS: PCP Nurse Practitioner Family; Visit Provider Internal Medicine
DX: I11.0 Hypertensive heart disease with heart failure (principal); I50.9 Heart failure, unspecified; I48.91 Unspecified atrial fibrillation; Z79.01 Long term (current) use of anticoagulants; Z79.82 Long term (current) use of aspirin; E78.5 Hyperlipidemia, unspecified; E78.00 Pure hypercholesterolemia, unspecified; E55.9 Vitamin D deficiency, unspecified
CPT/HCPCS: 36415; 93460; C1751; C1769; C1887; C1894; J1644; J2250; J3010; J3490; J7030; Q0163; Q9967

== ENCOUNTER → 2020-12-04 14:08 | Outpatient (BNVA) | payer MEDICARE, BC, SELFPAY | PROVIDERS: PCP Nurse Practitioner Family; Visit Provider Nurse Practitioner Family | DX: I50.9 Heart failure, unspecified (principal) | CPT/HCPCS: 80048; 83880 ==

== ENCOUNTER 2021-04-23 12:20 | Outpatient (CLI) | payer MEDICARE, BC, SELFPAY ==
--- NOTE | 2021-04-23 12:45 | USCV_ITS ---
Sumit Higuera Age: 76 Gender: M : 1945 Exam Date: 04/23/2021 12:30 Ordering Phys: Gibson Campos M.D ([email or web address]) Technologist: Kennedi Camacho Exam Location: [facility] [place] Indication: CHEST PAIN BP: / HR: 87 Rhythm: Atrial fibrillation Technical Quality: Adequate MEASUREMENTS (Male / Female) Normal Values 2D ECHO LV Diastolic Diameter PLAX 4.9 cm 4.2 - 5.9 / 3.9 - 5.3 cm LV Systolic Diameter PLAX 2.9 cm LV Chamber Size 3.3 cm IVS Diastolic Thickness 1.5 cm 0.6 - 1.0 / 0.6 - 0.9 cm IVS Systolic Thickness 2.0 cm LVPW Diastolic Thickness 1.4 cm 0.6 - 1.0 / 0.6 - 0.9 cm LVPW Systolic Thickness 2.0 cm RV Chamber Size 3.6 cm LVOT Diameter 2.1 cm LV Ejection Fraction 2D Teich 72.7 % LV Ejection Fraction MOD 2C 64.5 % LV Ejection Fraction 2C AL 63.8 % LA Diameter 4.7 cm LA Width 4.2 cm LA Height 6.9 cm RA Width 3.9 cm RA Height 5.9 cm Aorta at Sinotubular Diameter 3.5 cm M-MODE LV Diastolic Diameter MM 5.5 cm 4.2 - 5.9 / 3.9 - 5.3 cm LV Systolic Diameter MM 3.7 cm LV Ejection Fraction MM Teich 61.1 % IVS Diastolic Thickness MM 1.3 cm 0.6 - 1.0 / 0.6 - 0.9 cm IVS Systolic Thickness MM 1.7 cm LVPW Diastolic Thickness MM 1.3 cm 0.6 - 1.0 / 0.6 - 0.9 cm LVPW Systolic Thickness MM 1.7 cm RV Diastolic Diameter MM 1.2 cm Aortic Annulus Diameter 3.2 cm LA Ao Ratio MM 1.5 MV E Point Septal Separation 1.5 cm DOPPLER MV Area PHT 4.2 cm squared MV E' Velocity 45.0 cm/s Mitral E to MV E' Ratio 7.7 Mitral E to LV E' Lateral Ratio 7.9 Mitral E to LV E' Septal Ratio 7.5 TR Peak Velocity 127.1 cm/s TR Peak Gradient 6.5 mmHg TR Mean Velocity 87.9 cm/s TR Mean Gradient 3.7 mmHg TR Velocity Time Integral 25.5 cm TV Peak E Velocity 60.0 cm/s Right Atrial Pressure 3.0 mmHg Pulmonary Artery Systolic Pressu 9.5 mmHg PV Peak Velocity 73.0 cm/s RV Acceleration Time 0.1 s RV Ejection Time 0.3 s RV AcT/ET 0.4 FINDINGS Left Ventricle Normal left ventricular size. LV systolic function is moderately reduced with EF of 35-40%. Moderate global hypokinesis is noted. Diastolic function is indeterminate because of atrial fibrillation Right Ventricle The right ventricle is normal in size and function. Right Atrium The right atrium is normal in size. Left Atrium The left atrium is severely dilated Mitral Valve Structurally normal mitral valve without significant stenosis or prolapse. There is trace mitral regurgitation. Aortic Valve Structurally normal aortic valve without significant sclerosis or stenosis. There is no aortic regurgitation. Tricuspid Valve Structurally normal tricuspid valve without significant stenosis or regurgitation. Insufficient TR jet to calculate RVSP Pulmonic Valve Structurally normal pulmonic valve without significant stenosis. There is no pulmonic regurgitation. Pericardium Normal pericardium without effusion. Aorta Normal ascending aorta dimension. CONCLUSIONS LV systolic function is moderately reduced with EF of 35-40% Diastolic function is indeterminate because of atrial fibrillation Severely dilated left atrium Trace mitral regurgitation Compared to prior echocardiogram from 11/05/2020, LV systolic function is slightly better Gibson Campos MD (Electronically Signed) Final Date: 26 April 2021 14:54 S
== END 2021-04-23 12:21 | disposition home or self-care (01) ==
LOC: US 12:21
PROVIDERS: PCP Nurse Practitioner Family; Visit Provider Internal Medicine
DX: R06.02 Shortness of breath (principal); R07.9 Chest pain, unspecified; I48.91 Unspecified atrial fibrillation; I34.0 Nonrheumatic mitral (valve) insufficiency
CPT/HCPCS: 93306

== ENCOUNTER → 2021-07-15 15:32 | Outpatient (BNVA) | payer MEDICARE, BC, SELFPAY | PROVIDERS: PCP Nurse Practitioner Family; Visit Provider Family Medicine | DX: G89.29 Other chronic pain (principal); M17.0 Bilateral primary osteoarthritis of knee | CPT/HCPCS: 73560 ==

== ENCOUNTER 2021-08-01 06:00 | Outpatient (RCR) | payer MEDICARE, BC, SELFPAY | END 2021-08-22 23:59 | disposition home or self-care (01) | LOC: WPT 06:00 | PROVIDERS: PCP Nurse Practitioner Family; Referring Provider Family Medicine; Visit Provider Family Medicine | DX: M17.0 Bilateral primary osteoarthritis of knee (principal) | CPT/HCPCS: 97110; 97140; 97162 ==

== ENCOUNTER 2021-08-23 06:00 | Outpatient (RCR) | payer MEDICARE, BC, SELFPAY | END 2021-09-22 23:59 | disposition home or self-care (01) | LOC: WPT 06:00 | PROVIDERS: PCP Nurse Practitioner Family; Referring Provider Family Medicine; Visit Provider Family Medicine | DX: M17.0 Bilateral primary osteoarthritis of knee (principal) | CPT/HCPCS: 97110 ==

== ENCOUNTER 2021-09-18 10:30 | Emergency (ER) | payer MEDICARE, BC, SELFPAY ==
[2021-09-18 10:32] VITALS: BP 161/132; PULSE 146; RESP 19; O2SAT 97; BMI 28.7
--- NOTE | 2021-09-18 10:40 | XRR_ITS ---
PROCEDURE INFORMATION: Exam: XR Chest Exam date and time: 09/18/2021 10:40 AM Age: 76 years old Clinical indication: Cough and dyspnea; Patient HX: Afib , SOB, chest pain; Additional info: Dyspnea/cough TECHNIQUE: Imaging protocol: XR of the chest. Views: 1 view. Total images: 1 COMPARISON: CR XR chest 1V portable [id number] 09/15/2020 12:41 PM FINDINGS: Lungs: Unremarkable. No consolidation. Pleural spaces: Unremarkable. No pleural effusion. No pneumothorax. Heart/Mediastinum: Unremarkable. No cardiomegaly. Bones/joints: Unremarkable. XR/XR chest 1V portable [id number] IMPRESSION: No acute findings.
--- NOTE | 2021-09-18 10:40 | ECG_ITS ---
[facility] Test Date: 2021-09-18 Pat Name: Sumit Higuera Department: Room: Gender: Male Portfolio Assistant: : 1945 Requested By: Dieudonne Akbar Order Number: [id number] Chip MD: Alicia Chong M.D. Measurements Intervals [place] Rate: 127 P: AR: QRS: -49 QRSD: 121 T: 89 QT: 311 QTc: 453 Interpretive Statements ATRIAL FIBRILLATION WITH RAPID VENTRICULAR RESPONSE LEFT ANTERIOR FASCICULAR BLOCK [QRS AXIS <= -45, QR IN I, RS IN II] SEPTAL MYOCARDIAL INFARCTION , PROBABLY OLD [40+ ms Q WAVE IN V1/V2] Compared to ECG 09/15/2020 12:16:03 Left anterior fascicular block now present Myocardial infarct finding now present Intraventricular conduction delay no longer present Electronically Signed On 09-18-2021 22:04:38 DIRECTOR NURSING SERVICE by Alicia Chong M.D. [id number]
--- NOTE | 2021-09-18 10:46 | ED_ITS ---
HPI - Arrhythmia/Palpitations General: Chief Complaint: Arrhythmia/Palpitations Stated Complaint: AFIB/HTN Time Seen by Provider: 09/18/21 10:30 History of Present Illness: 76-year-old male presents to the emergency room with complaints of lightheadedness dizziness generally not feeling well. Patient has known history of atrial fibrillation and about a week ago he decided to stop taking all of his medications. He related he thought some of the medications were making him dizzy so he stopped them. He has had known A. fib for several years she is previously on apixaban and metoprolol as well as amiodarone. MD complaint: rapid heart beat, heart racing , palpitations, irregular heart beat and atrial fibrillation Onset (ago): day(s) Duration: constant Severity: moderate Context: occurred during rest Arrhythmia history: atrial fibrillation Associated symptoms: Reports short of breath; Deny anxiety, cough, diaphoresis, muscle cramps, nausea, paresthesias, pre- syncope, sense of impending doom, syncope or vomiting Review of Systems Const: Denies: diaphoresis ENMT: Denies: throat pain, ear or mastoid pain, nasal discharge or nasal congestion Card: Reports: palpitations, irregular heart rhythm, lightheadedness, dyspnea on exertion and orthopnea; Denies: syncope or pre-syncope Resp: Denies: dyspnea, productive cough or non-productive cough GI: Denies: nausea or vomiting : Denies: flank pain, dysuria, urinary frequency or urinary urgency Musc: Denies: muscle cramps Skin/Breast: Denies: rash or pruritus Psych: Denies: anxiety PFS ED PFSH: Medical History Actinic keratosis Alcoholic cardiomyopathy Anemia Atrial fibrillation Atrial fibrillation with RVR Chronic anticoagulation Congestive heart failure Dyslipidemia Fatigue Herpes zoster High cholesterol History of high blood pressure Hypertension Medication management Otitis externa Vitamin D deficiency Social History Smoking and tobacco status: never smoked Alcohol intake: current Alcohol intake frequency: 0-2 Drinks per Day Physical Exam Const: GENERAL APPEARANCE: cooperative and comfortable ORIENTATION/CONSCIOUSNESS: Yes awake Neck/C-Spine: COMMON NORMALS: no JVD Resp: COMMON NORMALS: normal respiratory effort, No retractions, No use of accessory muscles and clear to auscultation bilaterally AUSCULTATION: clear to auscultation bilaterally Cardio: COMMON NORMALS: no JVD and No murmurs present (Cardio) RATE: tachycardic RHYTHM: abnormal rhythm irregularly irregular GI: COMMON NORMALS: Soft to palpation and No hepatosplenomegaly present AUSCULTATION: Yes normoactive bowel sounds PALPATION: Yes Soft to palpation, No Tenderness to palpation present (GI), No Guarding due to palpation present (GI) and Yes No hepatosplenomegaly present Extremity: COMMON NORMALS: normal to inspection, capillary refill normal, no clubbing, cyanosis or edema, no calf tenderness and no pedal edema Skin: COMMON NORMALS: no rashes or lesions noted GENERAL SKIN EXAM: no rashes or lesions noted Course Vital Signs: Vital signs: Vital Signs Pulse Rate 89 09/18/21 14:27 Respiratory Rate 18 09/18/21 14:27 Blood Pressure 123/90 09/18/21 14:27 Pulse Oximetry 95 09/18/21 14:27 MDM - Arrhythmia/Palpitations Medical Decision Making Patient has stopped all of his medications. He was given amiodarone and metoprolol p.o. which he usually takes at home additionally we gave him dilt iazem and started a drip. Eventually were able to titrate the drip off and his rate remained controlled he is feeling much better and wishes to go home. He has all of his medications he is supposed to be taking at home he does not need any refills. I encouraged him to follow-up with his primary care doctor within a week and continue to take all of his prescribed medications unless they are specifically changed by his physician. Return if he has problems. Lab Data : 09/18/21 11:00 09/18/21 11:00 Radiology Impressions Chest X-Ray 09/18/21 10:40 IMPRESSION: No acute findings. Laboratory Results WBC 9.9 10^3/uL (4.0-10.0) 09/18/21 11:00 RBC 4.53 10^6/uL (4.1-5.3) 09/18/21 11:00 Hgb 15.0 g/dL (11.7-16.6) 09/18/21 11:00 Hct 44.6 % (42.0-52.0) 09/18/21 11:00 MCV 98.5 fl (80-94) H 09/18/21 11:00 MCH 33.1 pg (28.0-34.0) 09/18/21 11:00 MCHC 33.6 g/dL (30.0-36.0) 09/18/21 11:00 RDW 13.9 % (12.1-15.1) 09/18/21 11:00 Plt Count 223 10^3/cmm (130-400) 09/18/21 11:00 MPV 10.4 fL (7.4-10.4) 09/18/21 11:00 Neut % (Auto) 78.1 % 09/18/21 11:00 Lymph % (Auto) 10.9 % 09/18/21 11:00 [place] % (Auto) 9.3 % 09/18/21 11:00 Eos % (Auto) 0.2 % 09/18/21 11:00 Baso % (Auto) 0.2 % 09/18/21 11:00 Neut # (Auto) 7.73 10^3/uL (1.8-7.7) H 09/18/21 11:00 Lymph # (Auto) 1.1 10^3/uL (0.8-4.8) 09/18/21 11:00 [place] # (Auto) 0.9 10^3/uL (0.2-0.9) 09/18/21 11:00 Eos # (Auto) 0.0 10^3/uL (0.0-0.8) 09/18/21 11:00 Baso # (Auto) 0.0 10^3/uL (0.0-0.1) 09/18/21 11:00 Nucleated RBC % (auto) 0 % 09/18/21 11:00 Nucleated RBCs # 0.0 /100WBC 09/18/21 11:00 Sodium 136 mmol/L (136-145) 09/18/21 11:00 Potassium 4.2 mmol/L (3.5-5.1) 09/18/21 11:00 Chloride 101 mmol/L (98-107) 09/18/21 11:00 Carbon Dioxide 21 mmol/L (22-29) L 09/18/21 11:00 Anion Gap 18.2 (5-19) 09/18/21 11:00 BUN 12 mg/dL (8-23) 09/18/21 11:00 Creatinine 1.0 mg/dL (0.7-1.2) 09/18/21 11:00 GFR Calculation Not Reportable 09/18/21 11:00 Glucose 87 mg/dL (65-115) 09/18/21 11:00 Calculated Osmolality 281 mOsm/kg (285-295) L 09/18/21 11:00 Calcium 9.5 mg/dL (8.5-10.5) 09/18/21 11:00 Total Bilirubin 0.8 mg/dL (0.15-1.2) 09/18/21 11:00 AST 18 U/L (0-40) 09/18/21 11:00 ALT 19 U/L (0-41) 09/18/21 11:00 Alkaline Phosphatase 66 IU/L (40-130) 09/18/21 11:00 Troponin T Baseline 27 ng/L (0-15) H 09/18/21 11:00 Troponin T 120 Minute 23.13 ng/L (0-15) H 09/18/21 12:51 Delta Troponin T -3.87 ABS# (0-10) L 09/18/21 12:51 Total Protein 6.9 g/dL (6.6-8.7) 09/18/21 11:00 Albumin 4.3 g/dL (3.5-5.2) 09/18/21 11:00 Globulin 2.6 g/dL (1.3-4.6) 09/18/21 11:00 Discharge Plan Discharge Patient Disposition: Home Clinical Impression: Atrial fibrillation with RVR Condition: Stable Prescriptions: No Action gabapentin 300 mg capsule 300 mg PO BID 30 Days Qty: 60 0RF metoprolol succinate 25 mg tablet extended release 24 hr 25 mg PO DAILY Qty: 90 3RF cholecalciferol (vitamin D3) 1,250 mcg (50,000 unit) capsule 50,000 unit PO Q7D Qty: 12 1RF Rx Instructions: on Entresto 24-26 mg tablet 1 tab PO BID Qty: 180 1RF Rx Instructions: next refill will increase dose atorvastatin 40 mg tablet 40 mg PO DAILY@21 0RF furosemide 20 mg tablet 20 mg PO DAILY 0RF amiodarone 200 mg tablet 200 mg PO DAILY 0RF tamsulosin 0.4 mg capsule 0.4 mg PO DAILY 0RF Eliquis 5 mg tablet 5 mg PO BID 0RF Discharge Orders: Discharge ED (Routine); Ordered 09/18/21 Ordered By: Dieudonne Stock Referrals: CHRISTIANE Hernandez, AUTOMATIC SERGING MACHINE OPERATOR [Primary Care Provider] - Discharge Diet: Usual diet Discharge Activity: Increase activity as tolerated Patient Instructions: Opioid Safety Activity Restrictions/Additional Instructions: Follow-up with your brick picker within the week, return if you have further problems. Coding Level of Care Code ED Commission Associate for Chg Fwd Exam Detailed
[2021-09-18] MEDS: metoprolol succinate ER (24 HR) 25 mg Tablet PO (10:59)
[2021-09-18] MEDS: amiodarone 200 mg Tablet PO (10:59)
--- NOTE | 2021-09-18 11:12 | PC.NURSE ---
Pt placed on continuous cardiac, BP, and SpO2 monitoring initiated upon arrival into room.
[2021-09-18 11:23] VITALS: BP 122/84; PULSE 108; RESP 22; O2SAT 94
[2021-09-18 11:30] LABS: Basophils % 0.2 %; Eosinophils % 0.2 %; Hematocrit 44.6 % (42.0-52.0); Lymphocytes # 1.1 10^3/uL (0.8-4.8); Lymphocytes % 10.9 %; Mean Corpuscular HGB Conc 33.6 g/dL (30.0-36.0); Mean Corpuscular Hemoglobin 33.1 pg (28.0-34.0); Mean Corpuscular Volume 98.5 fl (80-94); Mean Platelet Volume 10.4 fL (7.4-10.4); Monocytes # 0.9 10^3/uL (0.2-0.9); Monocytes % 9.3 %; Neutrophils # 7.73 10^3/uL (1.8-7.7); Neutrophils % 78.1 %; Nucleated Red Blood Cells % 0 %; Platelet Count 223 10^3/cmm (130-400); Red Blood Count 4.53 10^6/uL (4.1-5.3); Red Cell Distribution Width 13.9 % (12.1-15.1); White Blood Count 9.9 10^3/uL (4.0-10.0)
[2021-09-18 11:40] LABS: Troponin(5th) Baseline 27 ng/L (0-15)
[2021-09-18 11:42] LABS: Alanine Aminotransferase 19 U/L (0-41); Albumin Level 4.3 g/dL (3.5-5.2); Alkaline Phosphatase 66 IU/L (40-130); Anion Gap 18.2 (5-19); Aspartate Amino Transferase 18 U/L (0-40); Blood Urea Nitrogen 12 mg/dL (8-23); Calcium 9.5 mg/dL (8.5-10.5); Carbon Dioxide 21 mmol/L (22-29); Chloride 101 mmol/L (98-107); Globulin 2.6 g/dL (1.3-4.6); Glucose 87 mg/dL (65-115); Osmolality Calculated 281 mOsm/kg (285-295); Potassium 4.2 mmol/L (3.5-5.1); Sodium 136 mmol/L (136-145); Total Bilirubin 0.8 mg/dL (0.15-1.2); Total Protein 6.9 g/dL (6.6-8.7)
[2021-09-18 13:37] LABS: Troponin 5 2HR 23.13 ng/L (0-15)
[2021-09-18 13:38] LABS: Troponin 5 2HR Delta -3.87 ABS# (0-10)
[2021-09-18 14:27] VITALS: BP 123/90; PULSE 89; RESP 18; O2SAT 95
== END 2021-09-18 14:26 | disposition home or self-care (01) ==
PROVIDERS: Emergency Provider Family Medicine; PCP Nurse Practitioner Family
DX: I48.20 Chronic atrial fibrillation, unspecified (principal); Z79.01 Long term (current) use of anticoagulants; I11.0 Hypertensive heart disease with heart failure; I50.9 Heart failure, unspecified; E78.5 Hyperlipidemia, unspecified
CPT/HCPCS: 36415; 71045; 80053; 84484; 85025; 93005; 96365; 96366; 96375; 99284; J3490

== ENCOUNTER 2021-12-05 13:36 | Outpatient (CLI) | payer MEDICARE, BC, SELFPAY ==
--- NOTE | 2021-12-05 14:15 | US_ITS ---
WS: [id number] Subcutaneous ultrasound of right lateral neck posterior to the ear, 12/05/2021 Clinical Data: R22.1 - Localized swelling, mass and lump, neck Comparison: None. Findings: There is a subcutaneous nodule measuring 0.50 x 0.80 x 1.63 cm which has a poorly defined border and is echogenic. There is no blood flow. No cysts are seen. No lymph nodes are identified. US/US soft tissue head neck [id number] Impression: Subcutaneous nodule with no characteristic abnormalities which could represent a fibroma or other soft tissue nodules.
== END 2021-12-05 13:37 | disposition home or self-care (01) ==
LOC: RAD 13:40
PROVIDERS: Visit Provider Nurse Practitioner Family
DX: R22.1 Localized swelling, mass and lump, neck (principal)
CPT/HCPCS: 76536

== ENCOUNTER → 2022-03-31 13:49 | Outpatient (BNVA) | payer MEDICARE, BC, SELFPAY | PROVIDERS: PCP Family Medicine; Visit Provider Internal Medicine | DX: I11.0 Hypertensive heart disease with heart failure (principal); I50.22 Chronic systolic (congestive) heart failure; R53.83 Other fatigue; E78.5 Hyperlipidemia, unspecified; D64.9 Anemia, unspecified; I42.6 Alcoholic cardiomyopathy; I48.0 Paroxysmal atrial fibrillation; Z79.01 Long term (current) use of anticoagulants | CPT/HCPCS: 99214 ==

== ENCOUNTER → 2022-09-29 15:20 | Outpatient (BNVA) | payer MEDICARE, BC, SELFPAY | PROVIDERS: PCP Family Medicine; Visit Provider Nurse Practitioner | DX: R07.9 Chest pain, unspecified (principal); R07.81 Pleurodynia | CPT/HCPCS: 71045 ==

== ENCOUNTER → 2022-12-29 13:35 | Outpatient (BNVA) | payer MEDICARE, BC, SELFPAY | PROVIDERS: PCP Nurse Practitioner; Visit Provider Internal Medicine | DX: I11.0 Hypertensive heart disease with heart failure (principal); I50.22 Chronic systolic (congestive) heart failure; R53.83 Other fatigue; D64.9 Anemia, unspecified; E78.5 Hyperlipidemia, unspecified; I42.6 Alcoholic cardiomyopathy; I48.0 Paroxysmal atrial fibrillation | CPT/HCPCS: 99214 ==

== ENCOUNTER → 2023-02-03 08:06 | Outpatient (BNVA) | payer MEDICARE, BC, SELFPAY | PROVIDERS: PCP Nurse Practitioner; Visit Provider Nurse Practitioner | DX: E55.9 Vitamin D deficiency, unspecified (principal); I10 Essential (primary) hypertension; I48.91 Unspecified atrial fibrillation; E78.5 Hyperlipidemia, unspecified; Z79.899 Other long term (current) drug therapy | CPT/HCPCS: 80053; 80061; 82306; 84443; 85025 ==

== ENCOUNTER 2023-04-20 16:18 | Outpatient (CLI) | payer MEDICARE, BC, SELFPAY ==
--- NOTE | 2023-04-20 16:45 | MR_ITS ---
WS: [id number] MRI RIGHT SHOULDER NONCONTRAST TECHNIQUE: Sagittal T2, coronal T1, T2 and proton density imaging. Axial gradient PDE imaging. CLINICAL INFORMATION: M25.519 - Pain in unspecified shoulder COMPARISON: None. FINDINGS: Images moderately degraded by patient motion. Small amount of edema at the AC joint. Mild downsloping the acromion. Mild narrowing of the subacromi al space. Subacromial and subdeltoid fluid. Chronic thinning of the distal supraspinatus.Tendinopathy in the supraspinatus with chronic thinning. Distal supraspinatus appears intact. Tendinopathy infras pinatus which appears intact. Small intrasubstance tears involving the posterior fibers of the supras pinatus and anterior fibers of the infraspinatus with associated edema in the muscle bellies. Normal teres minor. Small subcoracoid effusion. Tendinopathy involving the distal subscapularis which appears intact. Biceps tendon appears intact within the bicipital groove. Increased signal in the in tra-articular biceps tendon suspicious for partial tear and/or tendinopathy. Intra-articular biceps t endon appears intact. Some amount of fluid and edema in the rotator interval. Mild degenerative frayi ng of the glenoid labrum. Degenerative narrowing at the glenohumeral humeral articulation. IMPRESSION: Exam is somewhat limited due to motion artifact. 1. Moderate degenerative arthritis AC joint with fluid and edema. Small amount of subacromial subdel toid fluid. 2. Chronic thinning with small intrasubstance tears involving the posterior supraspinatus and anteri or infraspinatus. Associated edema in the muscle bellies. Distal fibers appear intact. 3. Tendinopathy involving the distal subscapularis which appears intact. 4. Small intrasubstance tear and tendinopathy involving the intra-articular biceps tendon. Intra-art icular biceps tendon appears intact. 5. Normal biceps tendon in the bicipital groove. 6. No other acute findings.
== END 2023-04-20 16:19 | disposition home or self-care (01) ==
LOC: RAD 16:20
PROVIDERS: PCP Nurse Practitioner; Visit Provider Nurse Practitioner
DX: M19.011 Primary osteoarthritis, right shoulder (principal); M75.101 Unspecified rotator cuff tear or rupture of right shoulder, not specified as traumatic; S46.211A Strain of muscle, fascia and tendon of other parts of biceps, right arm, initial encounter; X58.XXXA Exposure to other specified factors, initial encounter
CPT/HCPCS: 73221

== ENCOUNTER 2023-04-22 06:00 | Outpatient (RCR) | payer MEDICARE, BC, SELFPAY | END 2023-04-22 23:55 | disposition home or self-care (01) | LOC: WPT 06:00 | PROVIDERS: PCP Nurse Practitioner; Visit Provider Nurse Practitioner | DX: M25.512 Pain in left shoulder (principal) | CPT/HCPCS: 97110; 97162 ==

== ENCOUNTER 2023-04-23 14:11 | Outpatient (RCR) | payer MEDICARE, BC, SELFPAY | END 2023-05-22 23:59 | disposition home or self-care (01) | LOC: WPT 14:11 | PROVIDERS: PCP Nurse Practitioner; Visit Provider Nurse Practitioner | DX: M25.519 Pain in unspecified shoulder (principal) | CPT/HCPCS: 97110; 97112; 97530 ==

== ENCOUNTER 2023-08-30 14:04 | Inpatient (IN) | payer MEDICARE, BC, SELFPAY ==
[2023-08-30] VITALS (8 sets, daily range): BP systolic 99–135; BP diastolic 77–95; PULSE 78–113; RESP 14–26; TEMP 36.4–36.6; O2SAT 93–95; BMI 27.3
--- NOTE | 2023-08-30 14:19 | XRR_ITS ---
PROCEDURE INFORMATION: Exam: XR Chest Exam date and time: 08/30/2023 2:58 PM Age: 78 years old Clinical indication: Shortness of breath; Additional info: SOB TECHNIQUE: Imaging protocol: Radiologic exam of the chest. Views: 1 view. COMPARISON: CR XR chest 1V [id number] 09/29/2022 4:19 PM FINDINGS: Lungs: Pulmonary hypoinflation with associated bronchovascular crowding and mild bibasilar linear atelectasis versus scarring. No consolidation. Pleural spaces: Unremarkable. No pleural effusion. No pneumothorax. Heart/Mediastinum: Unremarkable. No cardiomegaly. Bones/joints: Degenerative changes along the spine. XR/XR chest 1V portable [id number] IMPRESSION: No acute findings.
--- NOTE | 2023-08-30 14:23 | ECG_ITS ---
[facility] Test Date: 2023-08-30 Pat Name: Sumit Higuera Department: Room: ED Gender: Male Die Maintenance Technician: : 1945 Requested By: Dieudonne Akbar Order Number: [id number] Chip MD: David White M.D. Measurements Intervals [place] Rate: 136 P: 0 FL: 0 QRS: -36 QRSD: 125 T: 90 QT: 323 QTc: 486 Interpretive Statements ATRIAL FLUTTER/TACHYCARDIA WITH RAPID VENTRICULAR RESPONSE LEFT AXIS DEVIATION [QRS AXIS < -30] POSSIBLE ANTERIOR MYOCARDIAL INFARCTION , OF INDETERMINATE AGE [30 ms Q WAVE IN V3/V4, OR R < 0.2 mV IN V4] Compared to ECG 09/18/2021 10:45:11 Left-axis deviation now present Atrial fibrillation no longer present Left anterior fascicular block no longer present Myocardial infarct finding still present Electronically Signed On 08-30-2023 21:01:19 AQUATICS ASSISTANT DEPARTMENT HEAD by David White M.D. [id number]
--- NOTE | 2023-08-30 14:47 | ED_ITS ---
HPI - SOB/Dyspnea 2 General: Chief Complaint: ER Hold Stated Complaint: trouble breathing Time Seen by Provider: 08/30/23 14:31 Source: patient Mode of arrival: ambulatory History of Present Illness: HPI Narrative: 78-year-old male with a known history of congestive heart failure and atrial fibrillation who presents to the emergency room in [facility] with RVR. He is currently on amiodarone 200 mg once a day he did take his amiodarone this morning. He is also on Eliquis. He does not run out of or change any doses of his medications recently. He has noticed worsening orthopnea and PND decreasing exercise tolerance is EF of 40% he denies any chest pain fever sweats or chills recently MD elicited complaint: shortness of breath Pertinent past history: congestive heart failure and other (Atrial fibrillation) Timing: constant Severity: mild Exacerbating factors: nothing Relieving factors: nothing Known history of: congestive heart failure and other (Atrial fibrillation) Associated symptoms: Deny abdominal pain, chest congestion, chest pain, cough, diaphoresis, dizziness, extremity pain, fever(s), hemoptysis, lightheadedness, myalgias, nausea, orthopnea, palpitations, paresthesias, polydipsia, polyuria, rash, sense of impending doom, syncope or vomiting Treatment prior to arrival: none Review of Systems 2 Const: Denies: fever(s), chills or diaphoresis Card: Denies: chest pain, palpitations, lightheadedness, syncope or orthopnea Resp: Denies: dyspnea, hemoptysis or chest congestion GI: Denies: abdominal pain, nausea or vomiting : Denies: dysuria, urinary frequency or urinary urgency Musc: Denies: neck pain, back pain or extremity pain Skin/Breast: Denies: rash Neuro: Denies: dizziness Endo: Denies: polyuria or polydipsia PFSH ED 2 PFSH: Medical History Episode of apnea Atrial fibrillation with RVR Herpes zoster Actinic keratosis Otitis externa Congestive heart failure Medication management Fatigue Anemia Vitamin D deficiency Chronic anticoagulation Dyslipidemia Hypertension Alcoholic cardiomyopathy Atrial fibrillation History of high blood pressure High cholesterol Family History Mother Hypertension Social History Smoking and tobacco/nicotine status: never used tobacco/nicotine Alcohol intake: current Alcohol intake frequency: 0-2 Drinks per Day Substance/Drug Use: never Physical Exam 2 Const: GENERAL APPEARANCE: cooperative and comfortable O RIENTATION/CONSCIOUSNESS: Yes awake, Yes oriented to person, Yes oriented to place and Yes oriented to time HENMT: COMMON NORMALS: normocephalic, atraumatic and hearing grossly normal bilaterally HEAD & SCALP: normocephalic and atraumatic Resp: COMMON NORMALS: normal respiratory effort, No retractions and No use of accessory muscles AUSCULTATION: crackles Cardio: RATE: tachycardic RHYTHM: abnormal rhythm irregularly irregular GI: COMMON NORMALS: Soft to palpation and No hepatosplenomegaly present A USCULTATION: Yes normoactive bowel sounds PALPATION: Yes Soft to palpation, No Tenderness to palpation present (GI), No Guarding due to palpation present (GI) and Yes No hepatosplenomegaly present Extremity: COMMON NORMALS: normal to inspection, capillary refill normal, no clubbing, cyanosis or edema, no calf tenderness and no pedal edema Neuro: SENSORIUM/ORIENTATION: Yes oriented to person, Yes oriented to place and Yes oriented to time Skin: COMMON NORMALS: no rashes or lesions noted GENERAL SKIN EXAM: no rashes or lesions noted Course 2 Vital Signs: Vital signs: Vital Signs Temperature 97.5 F L 08/30/23 14:17 Pulse Rate 107 H 08/30/23 14:17 Respiratory Rate 14 08/30/23 14:17 Blood Pressure 128/83 08/30/23 14:17 Pulse Oximetry 95 08/30/23 14:17 Oxygen Delivery Me thod Room Air 08/30/23 14:17 MDM - SOB/Dyspnea Medical Decision Making A-fib with RVR with some moderate decompensation. Patient not controlled on amiodarone and metoprolol he is on anticoagulant. Will admit he has been started on Cardizem rate is now controlled discussed with hospitalist will need to be evaluated. Maximize his medical management of his heart failure and adjust rate control. Discussed with patient. Medical Records I reviewed the patient's medical records. Lab Data I reviewed the patient's lab results. 08/30/23 14:45 08/30/23 14:45 Labs/Radiology: Radiology Impressions Chest X-Ray 08/30/23 14:19 IMPRESSION: No acute findings. Laboratory Results WBC 8.60 10^3/uL (3.29-11.43) 08/30/23 14:45 RBC 4.92 10^6/uL (3.85-5.65) 08/30/23 14:45 Hgb 15.80 g/dL (11.27-16.99) 08/30/23 14:45 Hct 48.1 % (37-53) 08/30/23 14:45 MCV 97.8 fl (82-101) 08/30/23 14:45 MCH 32.1 pg (27-33) 08/30/23 14:45 MCHC 32.8 g/dL (30-55) 08/30/23 14:45 RDW 13.9 % (12.1-15.1) 08/30/23 14:45 Plt Count 240 10^3/cmm (157-399) 08/30/23 14:45 MPV 10.2 fL (7.4-10.4) 08/30/23 14:45 Neut % (Auto) 74.6 % 08/30/23 14:45 Lymph % (Auto) 16.0 % 08/30/23 14:45 [place] % (Auto) 7.7 % 08/30/23 14:45 Eos % (Auto) 0.7 % 08/30/23 14:45 Baso % (Auto) 0.2 % 08/30/23 14:45 Neut # (Auto) 6.41 10^3/uL (1.8-7.7) 08/30/23 14:45 Lymph # (Auto) 1.4 10^3/uL (0.8-4.8) 08/30/23 14:45 [place] # (Auto) 0.7 10^3/uL (0.2-0.9) 08/30/23 14:45 Eos # (Auto) 0.1 10^3/uL (0.0-0.8) 08/30/23 14:45 Baso # (Auto) 0.0 10^3/uL (0.0-0.1) 08/30/23 14:45 Nucleated RBC % (auto) 0 % 08/30/23 14:45 Nucleated RBCs # 0.0 /100WBC 08/30/23 14:45 Sodium 143 mmol/L (136-145) 08/30/23 14:45 Potassium 4.2 mmol/L (3.5-5.1) 08/30/23 14:45 Chloride 104 mmol/L (98-107) 08/30/23 14:45 Carbon Dioxide 27 mmol/L (22-29) 08/30/23 14:45 Anion Gap 16.2 (5-19) 08/30/23 14:45 BUN 13 mg/dL (8-23) 08/30/23 14:45 Creatinine 1.3 mg/dL (0.7-1.2) H 08/30/23 14:45 GFR Calculation Not Reportable 08/30/23 14:45 Glucose 94 mg/dL (65-115) 08/30/23 14:45 Calculated Osmolality 296 mOsm/kg (285-295) H 08/30/23 14:45 Lactic Acid 2.6 mmol/L (0.5-2.2) H 08/30/23 14:45 Calcium 10.0 mg/dL (8.5-10.5) 08/30/23 14:45 Total Bilirubin 0.5 mg/dL (0.15-1.2) 08/30/23 14:45 AST 19 U/L (0-40) 08/30/23 14:45 ALT 16 U/L (0-41) 08/30/23 14:45 Alkaline Phosphatase 69 U/L (40-130) 08/30/23 14:45 Troponin T Baseline 30 ng/L (0-15) H 08/30/23 14:45 Total Protein 7.1 g/dL (6.6-8.7) 08/30/23 14:45 Albumin 4.6 g/dL (3.5-5.2) 08/30/23 14:45 Globulin 2.5 g/dL (1.3-4.6) 08/30/23 14:45 All radiology interpretation(s) finalized by discharge Discharge Plan Discharge Patient Disposition: Admitted As Inpatient Admit Provider: Jonathan Laguna Clinical Impression: Atrial fibrillation with RVR, Congestive heart failure, Chronic anticoagulation Condition: Stable Coding Level of Care Code ED Spooling Supervisor for Magdyg Ronda
[2023-08-30] MEDS: dilTIAZem 5 mg/mL SDV 5 mL 20 MG IVP (14:50)
[2023-08-30 14:54] LABS: Basophils % 0.2 %; Eosinophils # 0.1 10^3/uL (0.0-0.8); Eosinophils % 0.7 %; Hematocrit 48.1 % (37-53); Lymphocytes # 1.4 10^3/uL (0.8-4.8); Mean Corpuscular HGB Conc 32.8 g/dL (30-55); Mean Corpuscular Hemoglobin 32.1 pg (27-33); Mean Corpuscular Volume 97.8 fl (82-101); Mean Platelet Volume 10.2 fL (7.4-10.4); Monocytes # 0.7 10^3/uL (0.2-0.9); Monocytes % 7.7 %; Neutrophils # 6.41 10^3/uL (1.8-7.7); Neutrophils % 74.6 %; Nucleated Red Blood Cells % 0 %; Platelet Count 240 10^3/cmm (157-399); Red Blood Count 4.92 10^6/uL (3.85-5.65); Red Cell Distribution Width 13.9 % (12.1-15.1)
[2023-08-30] MEDS: dilTIAZem 100 MG in sodium chloride 0.9% (add-van) 100 ML IV (14:54)
[2023-08-30 15:32] LABS: Alanine Aminotransferase 16 U/L (0-41); Albumin Level 4.6 g/dL (3.5-5.2); Alkaline Phosphatase 69 U/L (40-130); Anion Gap 16.2 (5-19); Aspartate Amino Transferase 19 U/L (0-40); Blood Urea Nitrogen 13 mg/dL (8-23); Carbon Dioxide 27 mmol/L (22-29); Chloride 104 mmol/L (98-107); Globulin 2.5 g/dL (1.3-4.6); Glucose 94 mg/dL (65-115); Osmolality Calculated 296 mOsm/kg (285-295); Potassium 4.2 mmol/L (3.5-5.1); Sodium 143 mmol/L (136-145); Total Bilirubin 0.5 mg/dL (0.15-1.2); Total Protein 7.1 g/dL (6.6-8.7)
[2023-08-30 15:40] LABS: Troponin(5th) Baseline 30 ng/L (0-15)
--- NOTE | 2023-08-30 17:06 | P.HP_ITS ---
Providers/Chief Complaint 2 Admitting Physician: Jonathan Laguna MD Primary Care Provider: CHADD Jain Chief Complaint: trouble breathing History of Present Illness Sumit Higuera is a 78 year old male with a past medical history of Atrial fibrillation on Eliquis, who presents to [facility] due to palpitations and shortness of breath. Patient tells me that he has been having orthopnea, paroxysmal nocturnal dyspnea, chest palpitations, shortness of breath, no fevers, no chills, does have a nonproductive cough in the emergency room he is found to have A-fib with RVR placed on Cardizem drip, currently heart rates in the 90s to 110s, A-fib, he tells me he uses all his medications as prescribed, Review of Systems 2 Const: Denies: fever(s) Card: Reports: palpitations Resp: Reports: dyspnea GI: Denies: abdominal pain Medications/Allergies Home Medications Medication Instructions Recorded Confirmed Last Taken Type cholecalciferol (vitamin D3) 1,250 50,000 unit PO Q7D #12 caps 11/04/21 08/30/23 08/30/23 Rx mcg (50,000 unit) capsule metoprolol succinate 25 mg 25 mg PO DAILY #90 tabs 02/11/23 08/30/23 08/30/23 Rx tablet,extended release 24 hr sacubitril 97 mg-valsartan 103 mg 1 tab PO BID #180 tabs 07/14/23 08/30/23 08/30/23 Rx tablet apixaban 5 mg tablet (Eliquis) 5 mg PO BID #60 tabs 07/19/23 08/30/23 08/30/23 Rx amiodarone 200 mg tablet 200 mg PO DAILY 08/30/23 08/30/23 08/30/23 History atorvastatin 40 mg tablet 40 mg PO QPM 08/30/23 08/30/23 08/30/23 History ibuprofen 800 mg tablet 800 mg PO TID PRN Pain 08/30/23 08/30/23 Unknown History Allergies Allergy/AdvReac Type Severity Reaction Status Date / Time No Known Allergies Allergy Verified 08/30/23 11:59 PFSH Acute 2 PFSH: Medical History Episode of apnea Atrial fibrillation with RVR Herpes zoster Actinic keratosis Otitis externa Congestive heart failure Medication management Fatigue Anemia Vitamin D deficiency Chronic anticoagulation Dyslipidemia Hypertension Alcoholic cardiomyopathy Atrial fibrillation History of high blood pressure High cholesterol Family History Mother Hypertension Social History Smoking and tobacco/nicotine status: never used tobacco/nicotine Alcohol intake: current Alcohol intake frequency: 0-2 Drinks per Day Substance/Drug Use: never Vitals/I&O/Wt Last Vital Signs Temp 97.5 F L 08/30/23 14:17 Pulse 107 H 08/30/23 14:17 Resp 14 08/30/23 14:17 BP 128/83 08/30/23 14:17 Pulse Ox 95 08/30/23 14:17 O2 Del Method Room Air 08/30/23 14:17 08/30/23 08/30/23 08/30/23 06:59 14:59 22:59 Intake Total 1.917 / 1.917 Balance 1.917 / 1.917 Weight last 48 hrs Weight 83.915 kg Physical Exam 2 Const: COMMON NORMALS: no acute distress and patient oriented x3 HENMT: COMMON NORMALS: normocephalic HEAD & SCALP: normocephalic Neck/C-Spine: COMMON NORMALS: no JVD Lymph: LYMPHATIC: no lymphadenopathy noted Resp: COMMON NORMALS: normal respiratory effort, No retractions, No use of accessory muscles and clear to auscultation bilaterally AUSCULTATION: c rackkatty Cardio: COMMON NORMALS: regular rate, regular rhythm, S1 normal heart sound present and S2 normal heart sound present RATE: tachycardic RHYTHM: a bnormal rhythm HEART SOUNDS: S1 normal heart sound present and S2 normal heart sound present GI: COMMON NORMALS: Normal to inspection, nondistended, normoactive bowel sounds present, Soft to palpation and non-tender Extremity: COMMON NORMALS: no pedal edema Neuro: COMMON NORMALS: patient oriented x3, CN's II-XII intact bilaterally and moves all extremities Psych: COMMON NORMALS: mental status grossly normal Data 08/30/23 14:45 08/30/23 14:45 A&P Assessment and plan (1) Hypertension: Qualifiers: Hypertension type: essential hypertension Qualified Code(s): I10 - Essential (primary) hypertension (2) Congestive heart failure: Qualifiers: Heart failure type: systolic Heart failure chronicity: chronic Qualified Code(s): I50.22 - Chronic systolic (congestive) heart failure (3) Atrial fibrillation with RVR: Plan A-fib with RVR, ? Serial EKGs, serial troponins, telemetry monitoring, ? Cardiac echo, ? TSH, ? Magnesium, ? Continue Cardizem currently ? Increase metoprolol to 50 twice daily, ? Continue p.o. amiodarone 200 mg once daily ?continue Eliquis 5 mg p.o. twice daily, ? 1 days of IV Lasix, ? Full code, ? Eliquis for DVT prophylaxis MICKY, creatinine 1.3, monitor A1c 6.1, repeat Attestations 2 Medical Necessity Statement*: Patient requires hospitalization, inpatient, greater than 2 minutes of A-fib with RVR Diagnoses Essential hypertension I10 Hypertension type: essential hypertension Chronic systolic congestive heart failure I50.22 Heart failure type: systolic Heart failure chronicity: chronic Atrial fibrillation with RVR I48.91
[2023-08-30 17:19] LABS: Lactic Sepsis W/Reflex 2.6 mmol/L (0.5-2.2)
--- NOTE | 2023-08-30 17:22 | ECG_ITS ---
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 Measurements Intervals [place] Rate: 101 P: 0 UT: 0 QRS: -25 QRSD: 129 T: 35 QT: 360 QTc: 467 Interpretive Statements ATRIAL FIBRILLATION WITH RAPID VENTRICULAR RESPONSE WITH ABERRANT CONDUCTION OR VENTRICULAR PREMATURE COMPLEXES POSSIBLE ANTERIOR MYOCARDIAL INFARCTION , OF INDETERMINATE AGE [30 ms Q WAVE IN V3/V4, OR R < 0.2 mV IN V4] Compared to ECG 08/30/2023 14:23:12 Ventricular premature complex(es) now present Aberrant conduction of supraventricular beat(s) now present Atrial flutter no longer present Left-axis deviation no longer present Myocardial infarct finding still present Electronically Signed On 08-31-2023 4:25:37 CALIBRATION SPECIALIST by Gibson Campos M.D. [id number]
[2023-08-30 17:58] LABS: NT Pro B Type Natriuretic Pept 1880 pg/mL (0-450)
[2023-08-30 18:06] LABS: Troponin 5 2HR 26.69 ng/L (0-15); Troponin 5 2HR Delta -3.31 ABS# (0-10)
[2023-08-30 18:45] LABS: Reflex Lactate Order REFLEX LACTIC ORDERD
[2023-08-30] MEDS: atorvastatin 40 mg Tablet PO (20:53)
[2023-08-30] MEDS: pantoprazole 40 mg SDV IVP (20:53)
[2023-08-30] MEDS: metoprolol tartrate 25 mg Tablet PO (20:54)
[2023-08-30] MEDS: apixaban 5 mg Tablet PO (20:54)
[2023-08-30 22:02] LABS: Troponin 5 6HR 20.55 ng/L (0-15)
--- NOTE | 2023-08-30 22:17 | ECG_ITS ---
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 Measurements Intervals [place] Rate: 89 P: 0 [place]: 0 QRS: -16 QRSD: 137 T: 29 QT: 402 QTc: 492 Interpretive Statements ATRIAL FIBRILLATION WITH ABERRANT CONDUCTION OR VENTRICULAR PREMATURE COMPLEXES INTRAVENTRICULAR CONDUCTION DELAY [130+ ms QRS DURATION] Compared to ECG 08/30/2023 17:22:16 Intraventricular conduction delay now present Myocardial infarct finding no longer present Electronically Signed On 08-31-2023 4:24:29 AUTO FLEET MANAGER by Gibson Campos M.D. [id number]
[2023-08-30 22:30] LABS: Procalcitonin 0.03 ng/mL (0-0.5); Thyroid Stimulating Hormone 2.43 uIU/mL (0.27-4.20)
[2023-08-30 22:41] LABS: Magnesium 1.7 mg/dL (1.7-2.3)
[2023-08-30 23:38] LABS: Adenovirus Not Detected (NOT DETECT); Chlamydia Pneumoniae Not Detected (NOT DETECT); Coronavirus 229E,HKU1,NL63,OC4 Not Detected (NOT DETECT); Human Metapneumovirus Not Detected (NOT DETECT); Human Rhinovirus/Enterovirus Not Detected (NOT DETECT); Influenza A Not Detected (NOT DETECT); Influenza A H1 Not Detected (NOT DETECT); Influenza A H1-2009 Not Detected (NOT DETECT); Influenza A H3 Not Detected (NOT DETECT); Influenza B Not Detected (NOT DETECT); Mycoplasma Pneumoniae Not Detected (NOT DETECT); Parainfluenza Virus Type 1 Not Detected (NOT DETECT); Parainfluenza Virus Type 2 Not Detected (NOT DETECT); Parainfluenza Virus Type 3 Not Detected (NOT DETECT); Parainfluenza Virus Type 4 Not Detected (NOT DETECT); Respiratory Syncytial Virus A Not Detected (NOT DETECT); Respiratory Syncytial Virus B Not Detected (NOT DETECT); SARS-COV-2 Not Detected (NOT DETECT)
[2023-08-31 03:46] VITALS: BP 112/85; PULSE 86; RESP 21; TEMP 36.5; O2SAT 90
[2023-08-31 05:50] VITALS: PULSE 90
[2023-08-31 06:00] VITALS: BMI 27.3
[2023-08-31 06:31] LABS: Basophils % 0.3 %; Eosinophils # 0.1 10^3/uL (0.0-0.8); Eosinophils % 1.5 %; Hematocrit 45.5 % (37-53); Lymphocytes # 1.2 10^3/uL (0.8-4.8); Lymphocytes % 15.7 %; Mean Corpuscular Hemoglobin 32.7 pg (27-33); Mean Corpuscular Volume 99.1 fl (82-101); Mean Platelet Volume 10.3 fL (7.4-10.4); Monocytes # 0.8 10^3/uL (0.2-0.9); Monocytes % 9.7 %; Neutrophils % 72.2 %; Nucleated Red Blood Cells % 0 %; Platelet Count 193 10^3/cmm (157-399); Red Blood Count 4.59 10^6/uL (3.85-5.65); White Blood Count 7.76 10^3/uL (3.29-11.43)
[2023-08-31 07:07] LABS: Chol HDL Ratio 2.88 mg/dL (1.0-5.00); Cholesterol 121 mg/dL (0-200); HDL Cholesterol 42 mg/dL (60-100); LDL Cholesterol Calculated 60 mg/dL (50-129); LDL HDL Ratio 1.43 RATIO (0.00-3.22); NT Pro B Type Natriuretic Pept 1494 pg/mL (0-450); Triglycerides 93 mg/dL (0-150)
[2023-08-31 07:14] LABS: Alanine Aminotransferase 13 U/L (0-41); Albumin Level 3.9 g/dL (3.5-5.2); Alkaline Phosphatase 57 U/L (40-130); Blood Urea Nitrogen 13 mg/dL (8-23); Calcium 9.7 mg/dL (8.5-10.5); Carbon Dioxide 24 mmol/L (22-29); Chloride 105 mmol/L (98-107); Globulin 2.1 g/dL (1.3-4.6); Glucose 91 mg/dL (65-115); Magnesium 1.7 mg/dL (1.7-2.3); Osmolality Calculated 290 mOsm/kg (285-295); Phosphorus 3.1 mg/dL (2.5-4.5); Sodium 140 mmol/L (136-145); Total Bilirubin 0.8 mg/dL (0.15-1.2)
[2023-08-31 07:15] LABS: Anion Gap 15.7 (5-19); Aspartate Amino Transferase 18 U/L (0-40); Potassium 4.7 mmol/L (3.5-5.1)
[2023-08-31 08:00] VITALS: BP 126/90; PULSE 87; RESP 19; TEMP 36.5; O2SAT 93
[2023-08-31 08:32] LABS: Estmated Average Glucose 123; Hemoglobin A1C 5.9 % (4.0-6.0)
[2023-08-31] MEDS: FUROsemide 10 mg/mL SDV 4mL 40 MG IVP (08:45)
[2023-08-31] MEDS: sacubitril/valsartan 24-26 mg Tablet 3 EACH PO (08:45)
[2023-08-31] MEDS: apixaban 5 mg Tablet PO (08:46)
[2023-08-31] MEDS: amiodarone 200 mg Tablet PO (08:46)
[2023-08-31] MEDS: metoprolol tartrate 25 mg Tablet PO (08:46)
--- NOTE | 2023-08-31 11:15 | PM.DCS ---
Discharge Providers Date of Admission: 08/30/23 15:32 Date of Discharge: August 31, 2023 Attending Provider at Admission: Jonathan Laguna MD Attending Provider at Discharge: Jonathan Laguna MD Primary Care Provider: CHADD Jain Diagnoses at Discharge Discharge Diagnosis (1) Hypertension: Status: Acute Qualifiers: Hypertension type: essential hypertension Qualified Code(s): I10 - Essential (primary) hypertension (2) Congestive heart failure: Status: Acute Qualifiers: Heart failure type: systolic Heart failure chronicity: chronic Qualified Code(s): I50.22 - Chronic systolic (congestive) heart failure (3) Atrial fibrillation with RVR: Status: Acute Reason for Visit Reason for Visit: trouble breathing Hospital Course Hospital Course Sumit Higuera is a 78 year old male with a past medical history of Atrial fibrillation on Eliquis, who presents to [facility] due to palpitations and shortness of breath. Patient tells me that he has been having orthopnea, paroxysmal nocturnal dyspnea, chest palpitations, shortness of breath, no fevers, no chills, does have a nonproductive cough in the emergency room he is found to have A-fib with RVR placed on Cardizem drip, currently heart rates in the 90s to 110s, A-fib, he tells me he uses all his medications as prescribed, Patient was admitted to [facility] for A-fib with RVR, initially was on a Cardizem drip which was quite quickly stopped, his metoprolol was increased from 25 once a day to 25 twice daily, continue amiodarone 200 mg once a day continue Eliquis 5 mg p.o. twice daily received Lasix, overall clinically proved, will be discharged on Metroprolol 25 mg twice daily, follow-up with cardiology in 24 to 48 hours. Patient was advised if his heart rates increases above 120, and sustainingm he can increase the metoprolol to 50 mg twice daily, and follow-up with primary care and cardiology sooner. Physical Exam Const: COMMON NORMALS: no acute distress and patient oriented x3 Resp: COMMON NORMALS: normal respiratory effort, No retractions, No use of accessory muscles and clear to auscultation bilaterally AUSCULTATION: clear to auscultation bilaterally Cardio: COMMON NORMALS: regular rate, S1 normal heart sound present and S2 normal heart sound present RATE: regular rate RHYTHM: abnormal rhythm HEART SOUNDS: S1 normal heart sound present and S2 normal heart sound present GI: COMMON NORMALS: Normal to inspection, nondistended, normoactive bowel sounds present and non-tender Extremity: COMMON NORMALS: no pedal edema Neuro: COMMON NORMALS: patient oriented x3 Psych: COMMON NORMALS: mental status grossly normal Discharge Data Studies Completed and Pending Completed Studies During Hospitalization Category Date Time Status CXRP [XR chest 1V portable [id number]] Stat Exams 08/30/23 14:19 Completed Pending at discharge Category Date Time Status Blood Cultures ([facility]) Routine Lab 08/30/23 21:01 Received Complete Blood Count w/Auto AM LABS Lab 09/01/23 04:00 Ordered Complete Blood Count w/Auto AM LABS Lab 09/02/23 04:00 Ordered Comprehensive Metabolic Panel AM LABS Lab 09/01/23 04:00 Ordered Comprehensive Metabolic Panel AM LABS Lab 09/02/23 04:00 Ordered Magnesium AM LABS Lab 09/01/23 04:00 Ordered Magnesium AM LABS Lab 09/02/23 04:00 Ordered Phosphorus AM LABS Lab 09/01/23 04:00 Ordered Phosphorus AM LABS Lab 09/02/23 04:00 Ordered CV. echo complete* [id number] Routine Ultrasound 08/31/23 19:18 Taken Radiology Impressions Chest X-Ray 08/30/23 14:19 IMPRESSION: No acute findings. Laboratory Results WBC 7.76 10^3/uL (3.29-11.43) 08/31/23 06:12 RBC 4.59 10^6/uL (3.85-5.65) 08/31/23 06:12 Hgb 15.00 g/dL (11.27-16.99) 08/31/23 06:12 Hct 45.5 % (37-53) 08/31/23 06:12 MCV 99.1 fl (82-101) 08/31/23 06:12 MCH 32.7 pg (27-33) 08/31/23 06:12 MCHC 33.0 g/dL (30-55) 08/31/23 06:12 RDW 14.0 % (12.1-15.1) 08/31/23 06:12 Plt Count 193 10^3/cmm (157-399) 08/31/23 06:12 MPV 10.3 fL (7.4-10.4) 08/31/23 06:12 Neut % (Auto) 72.2 % 08/31/23 06:12 Lymph % (Auto) 15.7 % 08/31/23 06:12 [place] % (Auto) 9.7 % 08/31/23 06:12 Eos % (Auto) 1.5 % 08/31/23 06:12 Baso % (Auto) 0.3 % 08/31/23 06:12 Neut # (Auto) 5.60 10^3/uL (1.8-7.7) 08/31/23 06:12 Lymph # (Auto) 1.2 10^3/uL (0.8-4.8) 08/31/23 06:12 [place] # (Auto) 0.8 10^3/uL (0.2-0.9) 08/31/23 06:12 Eos # (Auto) 0.1 10^3/uL (0.0-0.8) 08/31/23 06:12 Baso # (Auto) 0.0 10^3/uL (0.0-0.1) 08/31/23 06:12 Nucleated RBC % (auto) 0 % 08/31/23 06:12 Nucleated RBCs # 0.0 /100WBC 08/31/23 06:12 Sodium 140 mmol/L (136-145) 08/31/23 06:12 Potassium 4.7 mmol/L (3.5-5.1) 08/31/23 06:12 Chloride 105 mmol/L (98-107) 08/31/23 06:12 Carbon Dioxide 24 mmol/L (22-29) 08/31/23 06:12 Anion Gap 15.7 (5-19) 08/31/23 06:12 BUN 13 mg/dL (8-23) 08/31/23 06:12 Creatinine 1.2 mg/dL (0.7-1.2) 08/31/23 06:12 GFR Calculation Not Reportable 08/31/23 06:12 Glucose 91 mg/dL (65-115) 08/31/23 06:12 Estimat Average Glucose 123 08/31/23 06:12 Hemoglobin A1c 5.9 % (4.0-6.0) 08/31/23 06:12 Calculated Osmolality 290 mOsm/kg (285-295) 08/31/23 06:12 Lactic Acid 2.6 mmol/L (0.5-2.2) H 08/30/23 14:45 Lactic Acid (Sepsis) 2.0 mmol/L (0.5-2.2) 08/30/23 19:22 Calcium 9.7 mg/dL (8.5-10.5) 08/31/23 06:12 Phosphorus 3.1 mg/dL (2.5-4.5) 08/31/23 06:12 Magnesium 1.7 mg/dL (1.7-2.3) 08/31/23 06:12 Total Bilirubin 0.8 mg/dL (0.15-1.2) 08/31/23 06:12 AST 18 U/L (0-40) 08/31/23 06:12 ALT 13 U/L (0-41) 08/31/23 06:12 Alkaline Phosphatase 57 U/L (40-130) 08/31/23 06:12 Troponin T Baseline 30 ng/L (0-15) H 08/30/23 14:45 Troponin T 120 Minute 26.69 ng/L (0-15) H 08/30/23 17:35 Delta Troponin T -3.31 ABS# (0-10) L 08/30/23 17:35 Troponin T Hi Sens 6Hr 20.55 ng/L (0-15) H 08/30/23 21:01 Troponin T Hi Sens 6Hr Delta -9.45 ng/L (0-12) L 08/30/23 21:01 C-Reactive Protein 3.0 mg/L (0.0-4.9) 08/30/23 21:55 NT-Pro-B Natriuret Pep 1494 pg/mL (0-450) H 08/31/23 06:12 Total Protein 6.0 g/dL (6.6-8.7) L 08/31/23 06:12 Albumin 3.9 g/dL (3.5-5.2) 08/31/23 06:12 Globulin 2.1 g/dL (1.3-4.6) 08/31/23 06:12 Triglycerides 93 mg/dL (0-150) 08/31/23 06:12 Cholesterol 121 mg/dL (0-200) 08/31/23 06:12 LDL Cholesterol, Calc 60 mg/dL (50-129) 08/31/23 06:12 HDL Cholesterol 42 mg/dL (60-100) L 08/31/23 06:12 LDL/HDL Ratio 1.43 RATIO (0.00-3.22) 08/31/23 06:12 Cholesterol/HDL Ratio 2.88 mg/dL (1.0-5.00) 08/31/23 06:12 Procalcitonin 0.03 ng/mL (0-0.5) 08/30/23 21:55 TSH 2.43 uIU/mL (0.27-4.20) 08/30/23 21:55 Adenovirus (PCR) Not detected (NOT DETECT) 08/30/23 21: C. pneumoniae DNA (PCR) Not detected (NOT DETECT) 08/30/23 21:47 Coronavirus 229E (PCR) Not detected (NOT DETECT) 08/30/23 21:47 Human Metapneumovir PCR Not detected (NOT DETECT) 08/30/23 21:47 Influenza A (H1) PCR Not detected (NOT DETECT) 08/30/23 21:47 Influ A (H1/09) PCR Not detected (NOT DETECT) 08/30/23 21:47 Influenza A (H3) PCR Not detected (NOT DETECT) 08/30/23 21:47 Influenza Type A (PCR) Not detected (NOT DETECT) 08/30/23 21:47 Influenza Type B (PCR) Not detected (NOT DETECT) 08/30/23 21:47 M. pneumoniae (PCR) Not detected (NOT DETECT) 08/30/23 21:47 Parainfluenza 1 (PCR) Not detected (NOT DETECT) 08/30/23 21:47 Parainfluenza 2 (PCR) Not detected (NOT DETECT) 08/30/23 21:47 Parainfluenza 3 (PCR) Not detected (NOT DETECT) 08/30/23 21:47 Parainfluenza 4 (PCR) Not detected (NOT DETECT) 08/30/23 21:47 RSV Type A (PCR) Not detected (NOT DETECT) 08/30/23 21:47 RSV Type B (PCR) Not detected (NOT DETECT) 08/30/23 21:47 Entero/Rhino (PCR) Not detected (NOT DETECT) 08/30/23 21:47 SARS-CoV-2 (PCR) Not detected (NOT DETECT) 08/30/23 21:47 Vitals Last Vital Signs Temp 97.7 F 08/31/23 08:00 Pulse 87 08/31/23 08:00 Resp 19 H 08/31/23 08:00 BP 126/90 08/31/23 08:00 Pulse Ox 93 08/31/23 08:00 O2 Del Method Room Air 08/31/23 08:00 Discharge Plan Discharge Patient Disposition: Home Condition: Stable Prescriptions: New metoprolol tartrate 25 mg Tablet 25 mg PO Q12H 30 Days Qty: 60 0RF Continued cholecalciferol (vitamin D3) 1,250 mcg (50,000 unit) capsule 50,000 unit PO Q7D Qty: 12 1RF Rx Instructions: ON WEDNESDAY sacubitril-valsartan 97-103 mg tablet 1 tab PO BID Qty: 180 3RF Eliquis 5 mg tablet 5 mg PO BID Qty: 60 5RF atorvastatin 40 mg tablet 40 mg PO QPM amiodarone 200 mg tablet 200 mg PO DAILY Discontinued metoprolol succinate 25 mg tablet extended release 24 hr 25 mg PO DAILY Qty: 90 3RF ibuprofen 800 mg tablet 800 mg PO TID PRN (Reason: Pain) Discharge Orders: Discharge Order (Routine); Ordered 08/31/23 Ordered By: Jonathan Laguna Referrals: CHRISTIANE Hernandez FNP [Primary Care Provider] - 1-3 days Gibson Campos M.D [Physician] - 1 week Discharge Diet: Cardiac Discharge Activity: Resume usual activity Patient Instructions: Opioid Safety Activity Restrictions/Additional Instructions: - Please see cardiology in 1 week -Please abstain from alcohol consumption -If your heart rates increase above 120 you can increase metoprolol to 50 mg twice daily Discharge Attestations Time Spent in Discharge Care*: greater than 30 min Status at Discharge: Cognitive status at discharge: cognitively intact, Behavioral status at discharge: cooperative, Quality Metrics Clinical Quality Measures [ No reported AMI, CVA or VTE this stay] Coding Level of Care Code 85631 Total time (in minutes) for Discharge: 45 Diagnoses Essential hypertension I10 Hypertension type: essential hypertension Chronic systolic congestive heart failure I50.22 Heart failure type: systolic Heart failure chronicity: chronic Atrial fibrillation with RVR I48.91
[2023-08-31 11:33] VITALS: BP 126/90; PULSE 87; RESP 19; TEMP 36.5; O2SAT 93
[2023-08-31 12:00] VITALS: BP 115/86; PULSE 82; RESP 17; TEMP 36.7; O2SAT 94
--- NOTE | 2023-08-31 14:04 | PC.NURSE ---
Discharge Note Patient discharged to home via POV accompanied by spouse. Discharge instructions reviewed with patient and/or employee's representative. Mobile pharmacy medications and/or prescriptions provided. Belongings/home medications returned.
--- NOTE | 2023-08-31 19:18 | USCV_ITS ---
Sumit Higuera Age: 78 Gender: M : 1945 Exam Date: 08/31/2023 02:42 Ordering Phys: Jonathan Laguna MD Technologist: CHEPE Exam Location: [facility] [place] Indication: SOB, history of CHF, history of Afib. BP: 135 / 95 HR: 111 Rhythm: Atrial fibrillation Technical Quality: Adequate MEASUREMENTS (Male / Female) Normal Values 2D ECHO LV Diastolic Diameter PLAX 5.3 cm 4.2 - 5.9 / 3.9 - 5.3 cm LV Systolic Diameter PLAX 3.7 cm IVS Diastolic Thickness 1.3 cm 0.6 - 1.0 / 0.6 - 0.9 cm IVS Systolic Thickness 1.9 cm LVPW Diastolic Thickness 1.7 cm 0.6 - 1.0 / 0.6 - 0.9 cm LVPW Systolic Thickness 1.8 cm LVOT Diameter 2.1 cm LV Ejection Fraction 2D Teich 58.3 % LV Ejection Fraction MOD 2C 39.6 % LV Ejection Fraction 2C AL 38.7 % LA Diameter 5.1 cm LA Width 4.9 cm LA Height 7.4 cm RA Width 4.7 cm RA Height 4.7 cm Aorta at Sinotubular Diameter 3.3 cm IVC Diameter 2.0 cm M-MODE Aortic Annulus Diameter 3.7 cm LA Ao Ratio MM 1.4 MV E Point Septal Separation 0.5 cm DOPPLER AV Peak Velocity 125.0 cm/s LVOT Peak Velocity 44.0 cm/s AV Area Cont Eq vti 1.3 cm squared AV Area Cont Eq pk 1.3 cm squared MV Area PHT 2.2 cm squared Mitral E to A Ratio 183.0 MV E' Velocity 42.0 cm/s Mitral E to MV E' Ratio 7.7 Mitral E to LV E' Lateral Ratio 6.6 Mitral E to LV E' Septal Ratio 9.4 TR Peak Velocity 218.0 cm/s TR Peak Gradient 19.0 mmHg TV Peak E Velocity 42.0 cm/s Right Atrial Pressure 10.0 mmHg Pulmonary Artery Systolic Pressu 29.0 mmHg PV Peak Velocity 79.0 cm/s RV Acceleration Time 0.1 s RV Ejection Time 0.3 s RV AcT/ET 0.2 FINDINGS Left Ventricle Diffuse hypokinesia of the left ventricle with an ejection fraction of around 38% Right Ventricle Normal right ventricular size with a slightly diminished ejection fraction Right Atrium Mildly increased right atrial size. Left Atrium Moderately increased left atrial size. Mitral Valve Moderate eccentric mitral regurgitation with the regurgitant jet directed posteriorly Aortic Valve Thickened aortic valve. Mild aortic valve calcification. Tricuspid Valve [id number] tricuspid valve regurgitation. Pulmonic Valve Mild pulmonary valve regurgitation. Pericardium No pericardial effusion. Aorta Normal aortic annulus size. IVC Normal IVC dimension with >50% respiratory change of the inferior vena cava. CONCLUSIONS Diffuse hypokinesia of the left ventricle with an ejection fraction of around 38%. Moderately increased left atrial size. Mildly increased right atrial size. Moderate eccentric mitral regurgitation with the regurgitant jet directed posteriorly. Thickened aortic valve. Mild aortic valve calcification. [id number] tricuspid valve regurgitation. Estimated pulmonary artery peak systolic pressure 29 mmHg Mild pulmonary valve regurgitation. There is no pericardial effusion. Compared to the study from 04/23/2021, there may not be a significant change. Dr David White MD [facility] (Electronically Signed) Final Date: 31 August 2023 12:56 S
== END 2023-08-31 14:05 | disposition home or self-care (01) | DRG 309 ==
LOC: ER 14:50 → ER IP 15:36 → CSU 17:54
PROVIDERS: Admitting Provider Family Medicine; Emergency Provider Family Medicine; PCP Nurse Practitioner Family; Visit Provider Family Medicine
DX: I48.20 Chronic atrial fibrillation, unspecified (principal); I50.22 Chronic systolic (congestive) heart failure; N17.9 Acute kidney failure, unspecified; Z79.01 Long term (current) use of anticoagulants; E78.5 Hyperlipidemia, unspecified; I11.0 Hypertensive heart disease with heart failure
CPT/HCPCS: 36415; 71045; 80053; 80061; 83036; 83605; 83735; 83880; 84100; 84145; 84443; 84484; 85025; 86140; 87040; 87486; 87581; 87633; 93005; 93306; 94664; 96374; 96376; 99285; C9113; J1940; J3490

== ENCOUNTER → 2023-09-09 10:07 | Outpatient (BNVA) | payer MEDICARE, BC, SELFPAY | PROVIDERS: PCP Nurse Practitioner Family; Visit Provider Nurse Practitioner Family | DX: I48.0 Paroxysmal atrial fibrillation (principal); Z79.01 Long term (current) use of anticoagulants; I42.6 Alcoholic cardiomyopathy; I11.0 Hypertensive heart disease with heart failure; I50.22 Chronic systolic (congestive) heart failure | CPT/HCPCS: 99214 ==

== ENCOUNTER → 2023-09-28 13:23 | Outpatient (BNVA) | payer MEDICARE, BC, SELFPAY | PROVIDERS: PCP Nurse Practitioner Family; Visit Provider Internal Medicine | DX: I11.0 Hypertensive heart disease with heart failure (principal); I50.22 Chronic systolic (congestive) heart failure; I48.0 Paroxysmal atrial fibrillation; R53.83 Other fatigue; D64.9 Anemia, unspecified; E78.5 Hyperlipidemia, unspecified; I42.6 Alcoholic cardiomyopathy | CPT/HCPCS: 99214 ==

== ENCOUNTER 2023-10-18 09:47 | Emergency (ER) | payer MEDICARE, BC, SELFPAY ==
[2023-10-18] VITALS (9 sets, daily range): BP systolic 108–134; BP diastolic 71–91; PULSE 70–90; RESP 13–19; TEMP 36.3; O2SAT 94–98; BMI 28.7
--- NOTE | 2023-10-18 09:50 | ECG_ITS ---
[facility] Test Date: 2023-10-18 Pat Name: Sumit Higuera Department: Room: Gender: Male [employer]down [employer] Operator: : 1945 Requested By: Dieudonne Akbar Order Number: [id number] Chip MD: David White M.D. Measurements Intervals [place] Rate: 87 P: 0 MD: 0 QRS: -46 QRSD: 130 T: 124 QT: 388 QTc: 467 Interpretive Statements ATRIAL FIBRILLATION LEFT AXIS DEVIATION [QRS AXIS < -30] POSSIBLE ANTERIOR MYOCARDIAL INFARCTION , PROBABLY OLD [30 ms Q WAVE IN V3/V4, OR R < 0.2 mV IN V4] Compared to ECG 08/30/2023 22:17:09 Left-axis deviation now present Myocardial infarct finding now present Ventricular premature complex(es) no longer present Aberrant conduction of supraventricular beat(s) no longer present Intraventricular conduction delay no longer present Electronically Signed On 10-19-2023 0:37:11 PROCESS TREATER by David White M.D. [id number]
--- NOTE | 2023-10-18 10:03 | XR_ITS ---
WS: [id number] Exam: XR chest 1V portable [id number] Date/Time of Exam: 10/18/2023 10:10 AM Reason For Exam: chest pain Comparison 08/30/2023. The lungs are clear and fully expanded. Normal cardiomediastinal silhouette. No pleural effusions. Re gional bony elements appear normal. IMPRESSION: 1. No acute cardiopulmonary finding. Stable.
[2023-10-18 10:32] LABS: Basophils % 0.1 %; Eosinophils # 0.1 10^3/uL (0.0-0.8); Eosinophils % 0.8 %; Hematocrit 49.7 % (37-53); Lymphocytes # 1.2 10^3/uL (0.8-4.8); Lymphocytes % 15.4 %; Mean Corpuscular Hemoglobin 31.7 pg (27-33); Mean Corpuscular Volume 95.9 fl (82-101); Mean Platelet Volume 10.5 fL (7.4-10.4); Monocytes # 0.8 10^3/uL (0.2-0.9); Monocytes % 10.2 %; Neutrophils # 5.78 10^3/uL (1.8-7.7); Neutrophils % 73.4 %; Nucleated Red Blood Cells % 0 %; Platelet Count 191 10^3/cmm (157-399); Red Blood Count 5.18 10^6/uL (3.85-5.65); Red Cell Distribution Width 13.7 % (12.1-15.1); White Blood Count 7.87 10^3/uL (3.29-11.43)
--- NOTE | 2023-10-18 10:52 | ED_ITS ---
HPI - Chest Pain 2 General: Chief Complaint: Chest Pain Stated Complaint: sob, chest pain Time Seen by Provider: 10/18/23 10:03 Source: patient Mode of arrival: ambulatory History of Present Illness: 78-year-old male presents emergency room complaining of chest pain. He has had it intermittently for about the last 4 to 5 days. It woke him up at night. At times he will feel like his heart is racing other times he feels like it stops or skips a beat. He recently had a Holter monitor but has not heard the result of it. He has had significant increase in orthopnea, but no leg swelling. Not currently having chest pain at this time his last episode was last evening. Patient has a known history of atrial fibrillation is on amiodarone and apixaban. Previous echocardiogram showed an ejection fraction of 38%. MD complaint: chest pain Onset (ago): day(s) Timing of current episode: episodic Associated symptoms: Deny abdominal pain, dyspnea or fever(s) Review of Systems 2 Const: Denies: fever(s) or chills Card: Denies: chest pain Resp: Denies: dyspnea GI: Denies: abdominal pain : Denies: dysuria, urinary frequency or urinary urgency Musc: Denies: neck pain or back pain Skin/Breast: Denies: rash PFSH ED 2 PFSH: Medical History Episode of apnea Atrial fibrillation with RVR Herpes zoster Actinic keratosis Otitis externa Congestive heart failure Medication management Fatigue Anemia Vitamin D deficiency Chronic anticoagulation Dyslipidemia Hypertension Alcoholic cardiomyopathy Atrial fibrillation History of high blood pressure High cholesterol Family History Mother Hypertension Social History Smoking and tobacco/nicotine status: never used tobacco/nicotine Alcohol intake: current Alcohol intake frequency: 0-2 Drinks per Day Substance/Drug Use: never Physical Exam 2 Const: COMMON NORMALS: no acute distress GENERAL APPEARANCE: cooperative and comfortable ORIENTATION/CONSCIOUSNESS: Yes awake, Yes oriented to person, Yes oriented to place and Yes oriented to time HENMT: COMMON NORMALS: normocephalic, atraumatic and hearing grossly normal bilaterally HEAD & SCALP: normocephalic and atraumatic Resp: COMMON NORMALS: normal respiratory effort, No retractions, No use of accessory muscles and clear to auscultation bilaterally AUSCULTATION: clear to auscultation bilaterally Cardio: COMMON NORMALS: regular rate, regular rhythm and No murmurs present (Cardio) RATE: regular rate RHYTHM: regular rhythm GI: COMMON NORMALS: Soft to palpation and No hepatosplenomegaly present A USCULTATION: Yes normoactive bowel sounds PALPATION: Yes Soft to palpation, No Tenderness to palpation present (GI), No Guarding due to palpation present (GI) and Yes No hepatosplenomegaly present Extremity: COMMON NORMALS: normal to inspection, capillary refill normal, no clubbing, cyanosis or edema, no calf tenderness and no pedal edema Neuro: SENSORIUM/ORIENTATION: Yes oriented to person, Yes oriented to place and Yes oriented to time Skin: COMMON NORMALS: no rashes or lesions noted GENERAL SKIN EXAM: no rashes or lesions noted Course 2 Vital Signs: Vital signs: Vital Signs Temperature 97.4 F L 10/18/23 09:55 Pulse Rate 83 10/18/23 13:47 Respiratory Rate 16 10/18/23 13:47 Blood Pressure 119/86 10/18/23 13:47 Pulse Oximetry 96 10/18/23 13:47 Oxygen Delivery Me thod Room Air 10/18/23 11:03 MDM - Chest Pain Medical Decision Making History of atrial fibrillation with alcoholic cardiomyopathy. Rate well- controlled here. On the chart there are 2 Holter monitor reports that show atrial fibs flutter with prolonged pauses but self terminating. I think that the sensation is getting of his heart racing and then pausing and restarting. He is currently on amiodarone and metoprolol his blood pressure is well- controlled cardiac enzymes are negative. Rate continues to be well-controlled while here and he has no acute ST changes on his EKG. Discharge home same medications follow-up with cardiology for further evaluation and review of the Holter monitor. Lab Data 10/18/23 10:24 10/18/23 10:24 Laboratory Results WBC 7.87 10^3/uL (3.29-11.43) 10/18/23 10:24 RBC 5.18 10^6/uL (3.85-5.65) 10/18/23 10:24 Hgb 16.40 g/dL (11.27-16.99) 10/18/23 10:24 Hct 49.7 % (37-53) 10/18/23 10:24 MCV 95.9 fl (82-101) 10/18/23 10:24 MCH 31.7 pg (27-33) 10/18/23 10:24 MCHC 33.0 g/dL (30-55) 10/18/23 10:24 RDW 13.7 % (12.1-15.1) 10/18/23 10:24 Plt Count 191 10^3/cmm (157-399) 10/18/23 10:24 MPV 10.5 fL (7.4-10.4) H 10/18/23 10:24 Neut % (Auto) 73.4 % 10/18/23 10:24 Lymph % (Auto) 15.4 % 10/18/23 10:24 [place] % (Auto) 10.2 % 10/18/23 10:24 Eos % (Auto) 0.8 % 10/18/23 10:24 Baso % (Auto) 0.1 % 10/18/23 10:24 Neut # (Auto) 5.78 10^3/uL (1.8-7.7) 10/18/23 10:24 Lymph # (Auto) 1.2 10^3/uL (0.8-4.8) 10/18/23 10:24 [place] # (Auto) 0.8 10^3/uL (0.2-0.9) 10/18/23 10:24 Eos # (Auto) 0.1 10^3/uL (0.0-0.8) 10/18/23 10:24 Baso # (Auto) 0.0 10^3/uL (0.0-0.1) 10/18/23 10:24 Nucleated RBC % (auto) 0 % 10/18/23 10:24 Nucleated RBCs # 0.0 /100WBC 10/18/23 10:24 Sodium 136 mmol/L (136-145) 10/18/23 10:24 Potassium 4.2 mmol/L (3.5-5.1) 10/18/23 10:24 Chloride 100 mmol/L (98-107) 10/18/23 10:24 Carbon Dioxide 23 mmol/L (22-29) 10/18/23 10:24 Anion Gap 17.2 (5-19) 10/18/23 10:24 BUN 15 mg/dL (8-23) 10/18/23 10:24 Creatinine 1.2 mg/dL (0.7-1.2) 10/18/23 10:24 GFR Calculation Not Reportable 10/18/23 10:24 Glucose 94 mg/dL (65-115) 10/18/23 10:24 Calculated Osmolality 283 mOsm/kg (285-295) L 10/18/23 10:24 Calcium 9.0 mg/dL (8.5-10.5) 10/18/23 10:24 Total Bilirubin 0.9 mg/dL (0.15-1.2) 10/18/23 10:24 AST 26 U/L (0-40) 10/18/23 10:24 ALT 28 U/L (0-41) 10/18/23 10:24 Alkaline Phosphatase 74 U/L (40-130) 10/18/23 10:24 Troponin T Baseline 28 ng/L (0-15) H 10/18/23 10:24 Troponin T 120 Minute 23.74 ng/L (0-15) H 10/18/23 12:27 Delta Troponin T -4.26 ABS# (0-10) L 10/18/23 12:27 Total Protein 7.2 g/dL (6.6-8.7) 10/18/23 10:24 Albumin 4.3 g/dL (3.5-5.2) 10/18/23 10:24 Globulin 2.9 g/dL (1.3-4.6) 10/18/23 10:24 All radiology interpretation(s) finalized by discharge Discharge Plan Discharge Patient Disposition: Home Clinical Impression: Alcoholic cardiomyopathy Atrial fibrillation Qualifiers: Atrial fibrillation type: paroxysmal Qualified Code(s): I48.0 - Paroxysmal atrial fibrillation Condition: Stable Prescriptions: No Action cholecalciferol (vitamin D3) 1,250 mcg (50,000 unit) capsule 50,000 unit PO Q7D Qty: 12 1RF Rx Instructions: ON WEDNESDAY sacubitril-valsartan 97-103 mg tablet 1 tab PO BID Qty: 180 3RF Eliquis 5 mg tablet 5 mg PO BID Qty: 60 5RF metoprolol tartrate 25 mg tablet 25 mg PO Q12H 30 Days Qty: 60 0RF atorvastatin 40 mg tablet 40 mg PO QPM amiodarone 200 mg tablet 200 mg PO QAM Discharge Orders: Discharge ED (Routine); Ordered 10/18/23 Ordered By: Dieudonne Stock Referrals: CHRISTIANE Hernandez, [employer]SEMBLER [Primary Care Provider] - Discharge Diet: Cardiac Discharge Activity: Limit activity as instructed Patient Instructions: Opioid Safety, Pain Management Activity Restrictions/Additional Instructions: Thank you for choosing [facility] for your healthcare needs today. Please realize this is an emergency room and that we are providing you with a medical screening exam and this may not be complete and all inclusive of all the testing and or work up that you may need to determine your ailment or severity of your illness. It is very important that you follow up as instructed or that you return to the Emergency Department should you have concerns or if your condition changes or worsens in any way. You are seen today for complaints of chest discomfort. Your cardiac enzymes and EKG did not show acute changes. Review of the Holter monitor reports that were available were brief events that showed events of a flutter with short pauses that were not nonsustained. There is no critical arrhythmias. You should follow-up with a sociocultural anthropology professor for the full report on the entire length of time the monitor was on. Continue all of your previously prescribed medications. Coding Level of Care Code ED Insole Lip Turner for Byron Bond
[2023-10-18 10:59] LABS: Alanine Aminotransferase 28 U/L (0-41); Albumin Level 4.3 g/dL (3.5-5.2); Alkaline Phosphatase 74 U/L (40-130); Anion Gap 17.2 (5-19); Aspartate Amino Transferase 26 U/L (0-40); Blood Urea Nitrogen 15 mg/dL (8-23); Carbon Dioxide 23 mmol/L (22-29); Chloride 100 mmol/L (98-107); Globulin 2.9 g/dL (1.3-4.6); Glucose 94 mg/dL (65-115); Osmolality Calculated 283 mOsm/kg (285-295); Potassium 4.2 mmol/L (3.5-5.1); Sodium 136 mmol/L (136-145); Total Bilirubin 0.9 mg/dL (0.15-1.2); Total Protein 7.2 g/dL (6.6-8.7)
[2023-10-18 11:00] LABS: Troponin(5th) Baseline 28 ng/L (0-15)
--- NOTE | 2023-10-18 11:56 | ECG_ITS ---
[facility] Test Date: 2023-10-18 Pat Name: Sumit Higuera Department: Room: Gender: Male House Mother: : 1945 Requested By: Dieudonne Akbar Order Number: [id number] Chip MD: David White M.D. Measurements Intervals [place] Rate: 86 P: 0 ID: 0 QRS: -43 QRSD: 132 T: 69 QT: 420 QTc: 505 Interpretive Statements ATRIAL FIBRILLATION LEFT AXIS DEVIATION [QRS AXIS < -30] INTRAVENTRICULAR CONDUCTION DELAY [130+ ms QRS DURATION] POSSIBLE ANTERIOR MYOCARDIAL INFARCTION , PROBABLY OLD [30 ms Q WAVE IN V3/V4, OR R < 0.2 mV IN V4] Compared to ECG 10/18/2023 09:50:19 Intraventricular conduction delay now present Myocardial infarct finding still present Electronically Signed On 10-19-2023 0:58:59 DISPATCHER [employer] RENTAL by David White M.D. [id number]
[2023-10-18 12:56] LABS: Troponin 5 2HR 23.74 ng/L (0-15)
[2023-10-18 12:57] LABS: Troponin 5 2HR Delta -4.26 ABS# (0-10)
== END 2023-10-18 13:49 | disposition home or self-care (01) ==
PROVIDERS: Emergency Provider Family Medicine; PCP Nurse Practitioner Family
DX: I48.0 Paroxysmal atrial fibrillation (principal); I42.6 Alcoholic cardiomyopathy; Z79.01 Long term (current) use of anticoagulants; I11.0 Hypertensive heart disease with heart failure; I50.9 Heart failure, unspecified; E78.5 Hyperlipidemia, unspecified
CPT/HCPCS: 36415; 71045; 80053; 84484; 85025; 93005; 99285

== ENCOUNTER → 2023-10-21 13:28 | Outpatient (BNVA) | payer MEDICARE, BC, SELFPAY | PROVIDERS: PCP Nurse Practitioner Family; Visit Provider Nurse Practitioner Family | DX: I48.91 Unspecified atrial fibrillation (principal); Z79.01 Long term (current) use of anticoagulants | CPT/HCPCS: 99213 ==